=== PATIENT | female | born 1960 | race American Indian/Alaskan Native ===

== ENCOUNTER 2018-04-19 21:16 | Inpatient (IN) | payer OTHER ==
--- NOTE | 2018-04-19 23:21 | XRay Report ---
FINAL REPORT EXAM: XR CHEST ROUTINE 2V HISTORY: Shortness of breath TECHNIQUE: 2 views of the chest. PRIORS: None. FINDINGS: The cardiomediastinal silhouette appears normal. The lungs are clear. The bones and soft tissues are unremarkable. IMPRESSION: No evidence of acute cardiopulmonary disease
[2018-04-19 23:52] LABS: Hematocrit 41.7 % (30.3-42.9); Hemoglobin 14.1 gm/dl (10.1-14.3); Mean Corpuscular HGB Conc 34 % (30-34); Mean Corpuscular Hemoglobin 31 pg (28-32); Mean Corpuscular Volume 92 fl (79-97); Platelet Count 235 K/mm3 (140-440); Red Blood Count 4.55 M/mm3 (3.65-5.03); Red Cell Distribution Width 14.3 % (13.2-15.2)
[2018-04-20 00:07] LABS: BUN/Creatinine Ratio 10; Blood Urea Nitrogen 7 mg/dL (7-17); Calcium 8.6 mg/dL (8.4-10.2); Hemolysis Index 9
[2018-04-20 02:52] LABS: Anisocytosis Few; Band Neutrophils # (Manual) 0.1 K/mm3; Basophils % (Manual) 0 % (0.0-1.8); Total Cells Counted 100
[2018-04-20] MEDS ORDERED: ATROVENT IH ONE (08:18)
[2018-04-20] MEDS ORDERED: SOLU-Medrol IV ONE (08:18)
[2018-04-20] MEDS ORDERED: PROVENTIL IH ONE (08:18)
[2018-04-20] MEDS ORDERED: MAGNESIUM SULFATE 1 GM in NACL 0.9% 50 ML IV ONE (08:18)
--- NOTE | 2018-04-20 08:20 | Emergency Department Report ---
ED Shortness of Breath HPI - General Chief Complaint: Dyspnea/Respdistress Stated Complaint: SOB Time Seen by Provider: 04/20/18 08:14 Source: patient Mode of arrival: Ambulatory Limitations: No Limitations - History of Present Illness Initial Comments: Patient is a 57-year-old black female past medical history of COPD who is not on oxygen at home who is presenting with 1 week of worsening shortness of breath. Patient is tried to take her albuterol rescue inhaler multiple times without improvement. Patient states she has a cough is nonproductive. Patient denies any fevers chills nausea vomiting diarrhea at this time. Patient states short of breath is worse when she walks and when she coughs. - Related Data Previous Rx's Medication Instructions Recorded Last Taken Type ALBUTEROL Inhaler (OR & NICU) 2 puff IH QID PRN #2 inha 10/06/13 03/15/14 16:00 Rx [ProAir HFA Inhaler] Doxycycline [Vibramycin CAP] 100 mg PO BID 7 Days capsule 10/06/13 10/24/13 09: 00 Rx Prednisone [predniSONE 10 mg 10 mg PO QDAY #5 tab.ds.pk 10/06/13 10/24/13 09:00 Rx (6-Day Pack, 21 Tabs)] Albuterol Sulfate [Ventolin HFA] 2 puff IH Q4H PRN #1 hfa.aer.ad 07/02/15 Unknown Rx Azithromycin [Zithromax Z-JERRY] 250 mg PO DAILY #6 tablet 07/02/15 Unknown Rx Lisinopril [Zestril TAB] 20 mg PO QDAY #30 tablet 07/02/15 Unknown Rx Prednisone [predniSONE 10 mg 10 mg PO DAILY #1 dosepack 07/02/15 Unknown Rx (6-Day Pack, 21 Tabs)] guaiFENesin/CODEINE [Robitussin AC] 5 ml PO Q6H PRN #100 oral.liqd 07/02/15 Unknown Rx Albuterol Sulfate [Albuterol 0.63% 0.63 mg IH TID PRN #1 box 07/05/15 Unknown Rx NEBS] Azithromycin [Zithromax] 250 mg PO QDAY #6 tablet 07/05/15 Unknown Rx Budesonide [Pulmicort] 0.5 mg IH Q12HR #1 box 07/05/15 Unknown Rx Ipratropium [Atrovent NEB] 0.5 mg IH Q8HRT PRN #1 box 07/05/15 Unknown Rx Nebulizer and Compressor 1 each MC TID PRN #1 box 07/05/15 Unknown Rx [Devilbiss Pulmoneb Lt Comp-Neb] Allergies Allergy/AdvReac Type Severity Reaction Status Date / Time latex AdvReac Unknown Verified 07/01/13 23:57 ED Review of Systems ROS: Stated complaint: SOB Other details as noted in HPI Comment: All other systems reviewed and negative ED Past Medical Hx - Past Medical History Hx Hypertension: Yes Hx Congestive Heart Failure: Yes Hx COPD: Yes - Surgical History Additional Surgical History: 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 - Social History Smoking Status: Current Every Day Smoker Substance Use Type: None - Medications Home Medications: Home Medications Medication Instructions Recorded Confirmed Last Taken Type ALBUTEROL Inhaler (OR & NICU) 2 puff IH QID PRN #2 inha 10/06/13 03/16/14 16:00 Rx [ProAir HFA Inhaler] Doxycycline [Vibramycin CAP] 100 mg PO BID 7 Days capsule 10/06/13 03/16/14 09:00 Rx Prednisone [predniSONE 10 mg 10 mg PO QDAY #5 tab.ds.pk 10/06/13 03/16/14 09:00 Rx (6-Day Pack, 21 Tabs)] Albuterol Sulfate [Ventolin HFA] 2 puff IH Q4H PRN #1 hfa.aer.ad 07/02/15 Unknown Rx Azithromycin [Zithromax Z-JERRY] 250 mg PO DAILY #6 tablet 07/02/15 Unknown Rx Lisinopril [Zestril TAB] 20 mg PO QDAY #30 tablet 07/02/15 Unknown Rx Prednisone [predniSONE 10 mg 10 mg PO DAILY #1 dosepack 07/02/15 Unknown Rx (6-Day Pack, 21 Tabs)] guaiFENesin/CODEINE [Robitussin AC] 5 ml PO Q6H PRN #100 oral.liqd 07/02/15 Unknown Rx Albuterol Sulfate [Albuterol 0.63% 0.63 mg IH TID PRN #1 box 07/05/15 Unknown Rx NEBS] Azithromycin [Zithromax] 250 mg PO QDAY #6 tablet 07/05/15 Unknown Rx Budesonide [Pulmicort] 0.5 mg IH Q12HR #1 box 07/05/15 Unknown Rx Ipratropium [Atrovent NEB] 0.5 mg IH Q8HRT PRN #1 box 07/05/15 Unknown Rx Nebulizer and Compressor 1 each MC TID PRN #1 box 07/05/15 Unknown Rx [Devilbiss Pulmoneb Lt Comp-Neb] ED Physical Exam - General Limitations: No Limitations General appearance: alert, in no apparent distress - Head Head exam: Present: atraumatic, normocephalic - Eye Eye exam: Present: normal appearance - ENT ENT exam: Present: mucous membranes moist - Neck Neck exam: Present: normal inspection - Respiratory Respiratory exam: Present: normal lung sounds bilaterally, wheezes, decreased breath sounds. Absent: respiratory distress, rales, rhonchi, stridor, accessory muscle use - Cardiovascular Cardiovascular Exam: Present: regular rate, normal rhythm. Absent: systolic murmur, diastolic murmur, rubs, gallop - GI/Abdominal GI/Abdominal exam: Present: soft, normal bowel sounds. Absent: distended, tenderness, guarding - Extremities Exam Extremities exam: Present: normal inspection - Back Exam Back exam: Present: normal inspection - Neurological Exam Neurological exam: Present: alert, oriented X3 - Psychiatric Psychiatric exam: Present: normal affect, normal mood - Skin Skin exam: Present: warm, dry, intact, normal color. Absent: rash ED Course Vital Signs 04/19/18 04/20/18 04/20/18 22:41 05:35 08:12 Temperature 98.5 F 98.7 F Pulse Rate 86 88 Pulse Rate [ Anterior Bilateral Throughout] Respiratory 18 16 20 Rate Respiratory Rate [Anterior Bilateral Throughout] Blood Pressure 168/96 152/56 O2 Sat by Pulse 96 96 87 Oximetry 04/20/18 04/20/18 04/20/18 08:15 08:31 08:45 Temperature Pulse Rate 69 79 Pulse Rate [ Anterior Bilateral Throughout] Respiratory 18 17 Rate Respiratory Rate [Anterior Bilateral Throughout] Blood Pressure 125/45 146/75 146/75 O2 Sat by Pulse 93 97 95 Oximetry 04/20/18 04/20/18 04/20/18 09:01 09:15 09:20 Temperature Pulse Rate Pulse Rate [ 71 Anterior Bilateral Throughout] Respiratory Rate Respiratory 20 Rate [Anterior Bilateral Throughout] Blood Pressure 146/75 125/69 O2 Sat by Pulse 97 96 Oximetry 04/20/18 04/20/18 04/20/18 09:31 09:45 10:01 Temperature Pulse Rate Pulse Rate [ Anterior Bilateral Throughout] Respiratory Rate Respiratory Rate [Anterior Bilateral Throughout] Blood Pressure 118/71 118/71 137/73 O2 Sat by Pulse 100 99 99 Oximetry 04/20/18 04/20/18 04/20/18 10:15 10:31 10:45 Temperature Pulse Rate Pulse Rate [ Anterior Bilateral Throughout] Respiratory Rate Respiratory Rate [Anterior Bilateral Throughout] Blood Pressure 137/73 137/73 137/73 O2 Sat by Pulse 98 98 90 Oximetry - Reevaluation(s) Reevaluation #1: 04/20/18 08:19 The patient had a prolonged wait time but did receive an albuterol treatment last night. Patient is continued to wheeze and has decreased breath sounds. Patient will have additional hour-long neb treatment ordered. ED Medical Decision Making - Lab Data Result diagrams: 04/19/18 23:14 04/19/18 23:14 - Radiology Data Chest x-ray shows no acute process - Medical Decision Making Patient is a 57-year-old Ethiopian female who has COPD is here for exacerbation. After her hour-long treatment patient still is having issues with her O2 sat. O2 sat on room air is not high 80s. Patient was placed on 2 L of oxygen however her oxygenation did not is currently improved and patient was placed on BiPAP. Patient will be admitted to the hospitalist service under Dr. Deshpande at this time. Critical Care Time: Yes (30) Critical care attestation.: If time is entered above; I have spent that time in minutes in the direct care of this critically ill patient, excluding procedure time. ED Disposition Clinical Impression: COPD exacerbation, Hypoxia Disposition: OP ADMIT IP TO THIS HOSP Is pt being admited?: Yes Does the pt Need Aspirin: No Condition: Poor Instructions: Chronic Bronchitis (ED) Referrals: PRIMARY CARE, [Primary Care Provider] - 3-5 Days
[2018-04-20] MEDS ORDERED: ZOFRAN IV ONE (10:57)
[2018-04-20] MEDS ORDERED: MORPHINE IV ONE (10:57)
--- NOTE | 2018-04-20 11:06 | History and Physical Report ---
History of Present Illness Chief complaint: shes having a hard time breathing History of present illness: 57 YO Female with COPD, Obesity, Obesity Hypoventilation Syndrome, Nicotine Dependence presents to ED for evaluation. Pt is lethargic at time of my exam, and is unable to provide history. Pt son is at bedside and provides history. Pt son states that she has experienced shortness of breath over the past week with worsening symptoms over the past 2 days, as well as worsening productive cough with clear sputum. Pt symptoms worsened with increased use of inhaler. Pt has also experienced dypsnea on exertion and at rest as well as worsening confusion. Pt transported to [facility] by family. Pt seen and evaluated in ED and found to have COPD Exacerbation, Acute Hypercapnic Respiratory Failure, and Encephalopathy. Pt treated with NIPPV in ED. Pt symptoms improved with therapy. Pt admitted to IM. Past History Past Medical History: COPD, hypertension Past Surgical History: Other (tumor excision) Social history: single, smoking Family history: hypertension Medications and Allergies Allergies Allergy/AdvReac Type Severity Reaction Status Date / Time latex AdvReac Unknown Verified 07/01/13 23:57 Home Medications Medication Instructions Recorded Confirmed Last Taken Type ALBUTEROL Inhaler (OR & NICU) 2 puff IH QID PRN #2 inha 10/06/13 04/20/18 16:00 Rx [ProAir HFA Inhaler] Review of Systems ROS unobtainable: due to mental status Exam - Constitutional Vitals: Temp Pulse Resp BP Pulse Ox 98.7 F 71 20 137/73 90 04/20/18 05:35 04/20/18 09:20 04/20/18 09:20 04/20/18 10:45 04/20/18 10:45 General appearance: Present: mild distress - EENT Eyes: Present: miosis ENT: hearing intact, clear oral mucosa - Neck Neck: Present: supple, normal ROM - Respiratory Respiratory effort: labored Respiratory: bilateral: diminished, rhonchi - Cardiovascular Heart Sounds: Present: S1 & S2. Absent: rub, click - Extremities Extremities: pulses symmetrical, No edema Peripheral Pulses: within normal limits - Abdominal General gastrointestinal: Present: soft, non-tender, non-distended, normal bowel sounds Female genitourinary: Present: normal - Integumentary Integumentary: Present: clear, warm, dry - Musculoskeletal Musculoskeletal: generalized weakness - Psychiatric Psychiatric: no intact judgment & insight, no memory intact Results - Labs CBC & Chem 7: 04/19/18 23:14 04/19/18 23:14 Labs: Abnormal lab results 04/19/18 04/19/18 Range/Units 23:14 23:14 Seg Neuts % (Manual) 79.0 H (40.0-70.0) % Carbon Dioxide 34 H (22-30) mmol/L Glucose 115 H (65-100) mg/dL Assessment and Plan - Patient Problems (1) Acute respiratory failure with hypercapnia Current Visit: Yes Status: Acute Plan to address problem: Supplemental oxygen, chest x ray, d dimer, CTA chest, nebulizer therapy, NIPPV, ABG (2) Encephalopathy Current Visit: Yes Status: Acute Plan to address problem: neuro checks, supplemental oxygen, aspiration precautions (3) COPD exacerbation Current Visit: Yes Status: Acute Plan to address problem: Supplemental oxygen, nebulizer therapy, chest x ray, NIPPV, (4) DVT prophylaxis Current Visit: No Status: Acute Plan to address problem: SCD to BLE while in bed
[2018-04-20] MEDS ORDERED: PULMICORT IH ONE (11:07)
[2018-04-20] MEDS ORDERED: DUONEB *Not for PRN Use IH ONE (11:23)
[2018-04-20] MEDS: DUONEB *Not for PRN Use IH ONE (11:27)
--- NOTE | 2018-04-20 17:54 | Nuclear Medicine Report ---
FINAL REPORT EXAM: NM LUNG SCAN PERF/VENT HISTORY: dypsnea TECHNIQUE: Lung ventilation with 13.56 mCi of xenon-133 gas Lung perfusion with 5.2 mCi of IV technetium 99m MAA Standard multiple planar ventilation and perfusion lung images PRIORS: Two-view chest 04/19/2018 FINDINGS: Ventilation and perfusion uptake is diffusely homogeneous bilaterally without focal matched or mismatched defect. Specifically, there is no mismatched perfusion defect to suggest pulmonary embolism. There is no central air trapping to suggest emphysema. IMPRESSION: Lung ventilation and perfusion scan negative for pulmonary embolism
[2018-04-20] MEDS ORDERED: CATAPRES ONE (20:42)
--- NOTE | 2018-04-21 13:20 | Progress Note ---
Assessment and Plan Assessment and plan: --Acute hypoxic hypercapnic respiratory failure; Secondary to acute exacerbation of COPD, oxygen nebulizers IV steroids and IV antibiotics inhalation steroids and supportive care --Acute exacerbation of COPD; Bronchodilators, IV Solu-Medrol, IV Levaquin, cough medicine Supportive care --Acute bronchitis/pneumonitis; Continue supportive care, antibiotics and cough medicine --Morbid obesity; BMI 38.6 Counseling, weight reduction when medically stable --DVT prophylaxis; Lovenox Closely monitor the patient, possible discharge in 1-2 days if stable Plan of care is reviewed with the patient, family member at the bedside and her nurse History Interval history: Patient seen and examined medical records reviewed Patient complains of shortness of breath and wheeze Alert awake oriented 3, mild distress Denies chest pain, mild nausea Vital signs reviewed Hospitalist Physical - Constitutional Vitals: Temp Pulse Resp BP Pulse Ox 98.4 F 68 16 118/68 97 04/21/18 12:00 04/21/18 05:00 04/21/18 05:00 04/21/18 05:00 04/21/18 09:45 General appearance: Present: mild distress, obese - EENT Eyes: Present: PERRL, EOM intact - Neck Neck: Present: supple, normal ROM - Respiratory Respiratory effort: normal Respiratory: bilateral: diminished, rhonchi, wheezing, negative: rales - Cardiovascular Rhythm: regular Heart Sounds: Present: S1 & S2 - Extremities Extremities: no ischemia, No edema - Abdominal General gastrointestinal: soft, non-tender, non-distended, normal bowel sounds - Integumentary Integumentary: Present: clear, warm - Psychiatric Psychiatric: appropriate mood/affect, cooperative - Neurologic Neurologic: CNII-XII intact, moves all extremities Results - Labs CBC & Chem 7: 04/19/18 23:14 04/19/18 23:14 Labs: Laboratory Last Values WBC 7.4 K/mm3 (4.5-11.0) 04/19/18 23:14 RBC 4.55 M/mm3 (3.65-5.03) 04/19/18 23:14 Hgb 14.1 gm/dl (10.1-14.3) 04/19/18 23:14 Hct 41.7 % (30.3-42.9) 04/19/18 23:14 MCV 92 fl (79-97) 04/19/18 23:14 MCH 31 pg (28-32) 04/19/18 23:14 MCHC 34 % (30-34) 04/19/18 23:14 RDW 14.3 % (13.2-15.2) 04/19/18 23:14 Plt Count 235 K/mm3 (140-440) 04/19/18 23:14 Add Manual Diff Complete 04/19/18 23:14 Total Counted 100 04/19/18 23:14 Seg Neuts % (Manual) 79.0 % (40.0-70.0) H 04/19/18 23:14 Band Neutrophils % 1.0 % 04/19/18 23:14 Lymphocytes % (Manual) 16.0 % (13.4-35.0) 04/19/18 23:14 Reactive Lymphs % (Man) 0 % 04/19/18 23:14 Monocytes % (Manual) 3.0 % (0.0-7.3) 04/19/18 23:14 Eosinophils % (Manual) 1.0 % (0.0-4.3) 04/19/18 23:14 Basophils % (Manual) 0 % (0.0-1.8) 04/19/18 23:14 Metamyelocytes % 0 % 04/19/18 23:14 Myelocytes % 0 % 04/19/18 23:14 Promyelocytes % 0 % 04/19/18 23:14 Blast Cells % 0 % 04/19/18 23:14 Nucleated RBC % Not Reportable 04/19/18 23:14 Seg Neutrophils # Man 5.8 K/mm3 (1.8-7.7) 04/19/18 23:14 Band Neutrophils # 0.1 K/mm3 04/19/18 23:14 Lymphocytes # (Manual) 1.2 K/mm3 (1.2-5.4) 04/19/18 23:14 Abs React Lymphs (Man) 0.0 K/mm3 04/19/18 23:14 Monocytes # (Manual) 0.2 K/mm3 (0.0-0.8) 04/19/18 23:14 Eosinophils # (Manual) 0.1 K/mm3 (0.0-0.4) 04/19/18 23:14 Basophils # (Manual) 0.0 K/mm3 (0.0-0.1) 04/19/18 23:14 Metamyelocytes # 0.0 K/mm3 04/19/18 23:14 Myelocytes # 0.0 K/mm3 04/19/18 23:14 Promyelocytes # 0.0 K/mm3 04/19/18 23:14 Blast Cells # 0.0 K/mm3 04/19/18 23:14 WBC Morphology Not Reportable 04/19/18 23:14 Hypersegmented Neuts Not Reportable 04/19/18 23:14 Hyposegmented Neuts Not Reportable 04/19/18 23:14 Hypogranular Neuts Not Reportable 04/19/18 23:14 Smudge Cells Not Reportable 04/19/18 23:14 Toxic Granulation Not Reportable 04/19/18 23:14 Toxic Vacuolation Not Reportable 04/19/18 23:14 Dohle Bodies Not Reportable 04/19/18 23:14 Pelger-Huet Anomaly Not Reportable 04/19/18 23:14 Daly Rods Not Reportable 04/19/18 23:14 Platelet Estimate Appears normal 04/19/18 23:14 Clumped Platelets Not Reportable 04/19/18 23:14 Plt Clumps, EDTA Not Reportable 04/19/18 23:14 Large Platelets Not Reportable 04/19/18 23:14 Giant Platelets Not Reportable 04/19/18 23:14 Platelet Satelliting Not Reportable 04/19/18 23:14 Plt Morphology Comment Not Reportable 04/19/18 23:14 RBC Morphology Not Reportable 04/19/18 23:14 Dimorphic RBCs Not Reportable 04/19/18 23:14 Polychromasia Not Reportable 04/19/18 23:14 Hypochromasia Not Reportable 04/19/18 23:14 Poikilocytosis Not Reportable 04/19/18 23:14 Anisocytosis Few 04/19/18 23:14 Microcytosis Not Reportable 04/19/18 23:14 Macrocytosis Not Reportable 04/19/18 23:14 Spherocytes Not Reportable 04/19/18 23:14 Pappenheimer Bodies Not Reportable 04/19/18 23:14 Sickle Cells Not Reportable 04/19/18 23:14 Target Cells Not Reportable 04/19/18 23:14 Tear Drop Cells Not Reportable 04/19/18 23:14 Ovalocytes Not Reportable 04/19/18 23:14 Helmet Cells Not Reportable 04/19/18 23:14 Kc-Oblong Bodies Not Reportable 04/19/18 23:14 [place] Rings Not Reportable 04/19/18 23:14 [place] Cells Not Reportable 04/19/18 23:14 Bite Cells Not Reportable 04/19/18 23:14 Crenated Cell Not Reportable 04/19/18 23:14 Elliptocytes Not Reportable 04/19/18 23:14 Acanthocytes (Spur) Not Reportable 04/19/18 23:14 Rouleaux Not Reportable 04/19/18 23:14 Hemoglobin C Crystals Not Reportable 04/19/18 23:14 Schistocytes Not Reportable 04/19/18 23:14 Malaria parasites Not Reportable 04/19/18 23:14 Jj Bodies Not Reportable 04/19/18 23:14 Hem Pathologist Commnt No 04/19/18 23:14 D-Dimer 362.13 ng/mlDDU (0-234) H 04/20/18 12:10 POC ABG pH 7.290 (7.35-7.45) L 04/21/18 06:20 POC ABG pCO2 75.6 (35-45) H 04/21/18 06:20 POC ABG pO2 97 (80-105) 04/21/18 06:20 POC ABG HCO3 36.4 04/21/18 06:20 POC ABG Total CO2 39 04/21/18 06:20 POC ABG O2 Sat 96 04/21/18 06:20 POC ABG Base Excess 10 04/21/18 06:20 FiO2 45 % 04/21/18 06:20 Sodium 144 mmol/L (137-145) 04/19/18 23:14 Potassium 4.1 mmol/L (3.6-5.0) 04/19/18 23:14 Chloride 101.2 mmol/L (98-107) 04/19/18 23:14 Carbon Dioxide 34 mmol/L (22-30) H 04/19/18 23:14 Anion Gap 13 mmol/L 04/19/18 23:14 BUN 7 mg/dL (7-17) 04/19/18 23:14 Creatinine 0.7 mg/dL (0.7-1.2) 04/19/18 23:14 Estimated GFR > 60 ml/min 04/19/18 23:14 BUN/Creatinine Ratio 10 % 04/19/18 23:14 Glucose 115 mg/dL (65-100) H 04/19/18 23:14 Calcium 8.6 mg/dL (8.4-10.2) 04/19/18 23:14 NT-Pro-B Natriuret Pep 68.51 pg/mL (0-900) 04/20/18 12:10
[2018-04-21] MEDS ORDERED: COLACE PO PRN (15:58)
[2018-04-21] MEDS ORDERED: PERCOCET 5/325 PO PRN (15:58)
[2018-04-21] MEDS ORDERED: ZOFRAN IV PRN (16:00)
[2018-04-21] MEDS: DUONEB *Not for PRN Use IH SCH (20:45)
[2018-04-21] MEDS: SOLU-Medrol IV SCH (22:40)
[2018-04-22] MEDS: DUONEB *Not for PRN Use IH SCH ×4 (01:20→21:59)
[2018-04-22 06:07] LABS: Basophils % (Auto) 0.1 % (0.0-1.8); Hematocrit 41.3 % (30.3-42.9); Hemoglobin 13.3 gm/dl (10.1-14.3); Lymphocytes # (Auto) 0.8 K/mm3 (1.2-5.4); Lymphocytes % (Auto) 8.2 % (13.4-35.0); Mean Corpuscular HGB Conc 32 % (30-34); Mean Corpuscular Hemoglobin 30 pg (28-32); Mean Corpuscular Volume 94 fl (79-97); Monocytes # (Auto) 0.2 K/mm3 (0.0-0.8); Monocytes % (Auto) 1.7 % (0.0-7.3); Platelet Count 208 K/mm3 (140-440); Red Cell Distribution Width 14.8 % (13.2-15.2)
[2018-04-22 06:28] LABS: BUN/Creatinine Ratio 17; Blood Urea Nitrogen 12 mg/dL (7-17); Calcium 8.5 mg/dL (8.4-10.2); Hemolysis Index 79
[2018-04-22] MEDS: SOLU-Medrol IV SCH ×2 (06:31→14:37)
[2018-04-22] MEDS: DUONEB *Not for PRN Use IH ONE (08:07)
[2018-04-22] MEDS: LEVAQUIN 750MG/150ML 750 MG/150 ML BAG IV SCH (10:08)
--- NOTE | 2018-04-22 15:56 | Progress Note ---
Assessment and Plan Assessment and plan: --Acute exacerbation of COPD; Bronchodilators, tapering doses of IV Solu-Medrol, IV Levaquin, cough medicine Supportive care --Acute hypoxic hypercapnic respiratory failure; Secondary to acute exacerbation of COPD, oxygen nebulizers IV steroids and IV antibiotics inhalation steroids and supportive care --Acute bronchitis/pneumonitis; Continue supportive care, antibiotics and cough medicine --Morbid obesity; BMI 38.6 Counseling, weight reduction when medically stable --DVT prophylaxis; Lovenox Increase ambulation as tolerated Patient is stable to be transferred out of IMCU to medical floor Possible discharge tomorrow if stable History Interval history: Patient seen and examined medical records reviewed Patient feels slightly better, still complains of some wheezing and shortness of breath Alert awake oriented 3 Vital signs reviewed Hospitalist Physical - Constitutional Vitals: Temp Pulse Resp BP Pulse Ox 98.2 F 69 16 114/57 99 04/22/18 12:00 04/22/18 11:10 04/22/18 11:10 04/22/18 10:51 04/22/18 11:10 General appearance: Present: no acute distress, obese - EENT Eyes: Present: PERRL, EOM intact - Neck Neck: Present: supple, normal ROM - Respiratory Respiratory effort: normal Respiratory: bilateral: diminished, wheezing, negative: rales, rhonchi - Cardiovascular Rhythm: regular Heart Sounds: Present: S1 & S2 - Extremities Extremities: no ischemia, No edema - Abdominal General gastrointestinal: soft, non-tender, non-distended, normal bowel sounds - Integumentary Integumentary: Present: clear, warm - Psychiatric Psychiatric: appropriate mood/affect, cooperative - Neurologic Neurologic: CNII-XII intact, moves all extremities Results - Labs CBC & Chem 7: 04/22/18 05:17 04/22/18 05:17 Labs: Laboratory Last Values WBC 10.3 K/mm3 (4.5-11.0) 04/22/18 05:17 RBC 4.40 M/mm3 (3.65-5.03) 04/22/18 05:17 Hgb 13.3 gm/dl (10.1-14.3) 04/22/18 05:17 Hct 41.3 % (30.3-42.9) 04/22/18 05:17 MCV 94 fl (79-97) 04/22/18 05:17 MCH 30 pg (28-32) 04/22/18 05:17 MCHC 32 % (30-34) 04/22/18 05:17 RDW 14.8 % (13.2-15.2) 04/22/18 05:17 Plt Count 208 K/mm3 (140-440) 04/22/18 05:17 Lymph % (Auto) 8.2 % (13.4-35.0) L 04/22/18 05:17 [place] % (Auto) 1.7 % (0.0-7.3) 04/22/18 05:17 Eos % (Auto) 0.0 % (0.0-4.3) 04/22/18 05:17 Baso % (Auto) 0.1 % (0.0-1.8) 04/22/18 05:17 Lymph # 0.8 K/mm3 (1.2-5.4) L 04/22/18 05:17 [place] # 0.2 K/mm3 (0.0-0.8) 04/22/18 05:17 Eos # 0.0 K/mm3 (0.0-0.4) 04/22/18 05:17 Baso # 0.0 K/mm3 (0.0-0.1) 04/22/18 05:17 Add Manual Diff Complete 04/19/18 23:14 Total Counted 100 04/19/18 23:14 Seg Neutrophils % 90.0 % (40.0-70.0) H 04/22/18 05:17 Seg Neuts % (Manual) 79.0 % (40.0-70.0) H 04/19/18 23:14 Band Neutrophils % 1.0 % 04/19/18 23:14 Lymphocytes % (Manual) 16.0 % (13.4-35.0) 04/19/18 23:14 Reactive Lymphs % (Man) 0 % 04/19/18 23:14 Monocytes % (Manual) 3.0 % (0.0-7.3) 04/19/18 23:14 Eosinophils % (Manual) 1.0 % (0.0-4.3) 04/19/18 23:14 Basophils % (Manual) 0 % (0.0-1.8) 04/19/18 23:14 Metamyelocytes % 0 % 04/19/18 23:14 Myelocytes % 0 % 04/19/18 23:14 Promyelocytes % 0 % 04/19/18 23:14 Blast Cells % 0 % 04/19/18 23:14 Nucleated RBC % Not Reportable 04/19/18 23:14 Seg Neutrophils # 9.3 K/mm3 (1.8-7.7) H 04/22/18 05:17 Seg Neutrophils # Man 5.8 K/mm3 (1.8-7.7) 04/19/18 23:14 Band Neutrophils # 0.1 K/mm3 04/19/18 23:14 Lymphocytes # (Manual) 1.2 K/mm3 (1.2-5.4) 04/19/18 23:14 Abs React Lymphs (Man) 0.0 K/mm3 04/19/18 23:14 Monocytes # (Manual) 0.2 K/mm3 (0.0-0.8) 04/19/18 23:14 Eosinophils # (Manual) 0.1 K/mm3 (0.0-0.4) 04/19/18 23:14 Basophils # (Manual) 0.0 K/mm3 (0.0-0.1) 04/19/18 23:14 Metamyelocytes # 0.0 K/mm3 04/19/18 23:14 Myelocytes # 0.0 K/mm3 04/19/18 23:14 Promyelocytes # 0.0 K/mm3 04/19/18 23:14 Blast Cells # 0.0 K/mm3 04/19/18 23:14 WBC Morphology Not Reportable 04/19/18 23:14 Hypersegmented Neuts Not Reportable 04/19/18 23:14 Hyposegmented Neuts Not Reportable 04/19/18 23:14 Hypogranular Neuts Not Reportable 04/19/18 23:14 Smudge Cells Not Reportable 04/19/18 23:14 Toxic Granulation Not Reportable 04/19/18 23:14 Toxic Vacuolation Not Reportable 04/19/18 23:14 Dohle Bodies Not Reportable 04/19/18 23:14 Pelger-Huet Anomaly Not Reportable 04/19/18 23:14 Daly Rods Not Reportable 04/19/18 23:14 Platelet Estimate Appears normal 04/19/18 23:14 Clumped Platelets Not Reportable 04/19/18 23:14 Plt Clumps, EDTA Not Reportable 04/19/18 23:14 Large Platelets Not Reportable 04/19/18 23:14 Giant Platelets Not Reportable 04/19/18 23:14 Platelet Satelliting Not Reportable 04/19/18 23:14 Plt Morphology Comment Not Reportable 04/19/18 23:14 RBC Morphology Not Reportable 04/19/18 23:14 Dimorphic RBCs Not Reportable 04/19/18 23:14 Polychromasia Not Reportable 04/19/18 23:14 Hypochromasia Not Reportable 04/19/18 23:14 Poikilocytosis Not Reportable 04/19/18 23:14 Anisocytosis Few 04/19/18 23:14 Microcytosis Not Reportable 04/19/18 23:14 Macrocytosis Not Reportable 04/19/18 23:14 Spherocytes Not Reportable 04/19/18 23:14 Pappenheimer Bodies Not Reportable 04/19/18 23:14 Sickle Cells Not Reportable 04/19/18 23:14 Target Cells Not Reportable 04/19/18 23:14 Tear Drop Cells Not Reportable 04/19/18 23:14 Ovalocytes Not Reportable 04/19/18 23:14 Helmet Cells Not Reportable 04/19/18 23:14 [place] Bodies Not Reportable 04/19/18 23:14 [place] Rings Not Reportable 04/19/18 23:14 [place] Cells Not Reportable 04/19/18 23:14 Bite Cells Not Reportable 04/19/18 23:14 Crenated Cell Not Reportable 04/19/18 23:14 Elliptocytes Not Reportable 04/19/18 23:14 Acanthocytes (Spur) Not Reportable 04/19/18 23:14 Rouleaux Not Reportable 04/19/18 23:14 Hemoglobin C Crystals Not Reportable 04/19/18 23:14 Schistocytes Not Reportable 04/19/18 23:14 Malaria parasites Not Reportable 04/19/18 23:14 Jj Bodies Not Reportable 04/19/18 23:14 Hem Pathologist Commnt No 04/19/18 23:14 D-Dimer 362.13 ng/mlDDU (0-234) H 04/20/18 12:10 POC ABG pH 7.290 (7.35-7.45) L 04/21/18 06:20 POC ABG pCO2 75.6 (35-45) H 04/21/18 06:20 POC ABG pO2 97 (80-105) 04/21/18 06:20 POC ABG HCO3 36.4 04/21/18 06:20 POC ABG Total CO2 39 04/21/18 06:20 POC ABG O2 Sat 96 04/21/18 06:20 POC ABG Base Excess 10 04/21/18 06:20 FiO2 45 % 04/21/18 06:20 Sodium 139 mmol/L (137-145) 04/22/18 05:17 Potassium 5.2 mmol/L (3.6-5.0) H D 04/22/18 05:17 Chloride 95.7 mmol/L (98-107) L 04/22/18 05:17 Carbon Dioxide 33 mmol/L (22-30) H 04/22/18 05:17 Anion Gap 16 mmol/L 04/22/18 05:17 BUN 12 mg/dL (7-17) 04/22/18 05:17 Creatinine 0.7 mg/dL (0.7-1.2) 04/22/18 05:17 Estimated GFR > 60 ml/min 04/22/18 05:17 BUN/Creatinine Ratio 17 % 04/22/18 05:17 Glucose 230 mg/dL (65-100) H 04/22/18 05:17 Calcium 8.5 mg/dL (8.4-10.2) 04/22/18 05:17 NT-Pro-B Natriuret Pep 68.51 pg/mL (0-900) 04/20/18 12:10
[2018-04-22] MEDS: APRESOLINE PO SCH (23:09)
[2018-04-23] MEDS: SOLU-Medrol IV SCH ×2 (01:40→13:39)
[2018-04-23] MEDS: DUONEB *Not for PRN Use IH SCH ×3 (03:00→16:03)
[2018-04-23] MEDS: APRESOLINE PO SCH ×3 (06:42→23:22)
[2018-04-23] MEDS: LEVAQUIN 750MG/150ML 750 MG/150 ML BAG IV SCH (10:48)
--- NOTE | 2018-04-23 18:26 | Progress Note ---
Assessment and Plan Assessment and plan: --Acute exacerbation of COPD; Bronchodilators, tapering doses of IV Solu-Medrol, IV Levaquin, cough medicine Supportive care --Acute hypoxic hypercapnic respiratory failure; Secondary to acute exacerbation of COPD, oxygen nebulizers IV steroids and IV antibiotics inhalation steroids and supportive care --Acute bronchitis/pneumonitis; Continue supportive care, antibiotics and cough medicine --Morbid obesity; BMI 38.6 Counseling, weight reduction when medically stable --DVT prophylaxis; Lovenox Increase ambulation as tolerated Patient is stable to be transferred out of IMCU to medical floor Possible discharge tomorrow if stable Room air resting oxygen saturation, more than 95%, ambulate 3 roommate oxygen 88 % Continue current management, reevaluate tomorrow for home oxygen Plan of care reviewed with the patient and the family member, her nurse and case management History Interval history: Patient seen and examined medical records reviewed Patient feels slightly better, still complaints of shortness of breath Alert awake oriented 3 Vital signs reviewed Hospitalist Physical - Constitutional Vitals: Temp Pulse Resp BP Pulse Ox 98.5 F 89 18 128/67 89 04/23/18 12:55 04/23/18 14:00 04/23/18 14:00 04/23/18 12:55 04/23/18 12:55 General appearance: Present: no acute distress, obese - EENT Eyes: Present: PERRL, EOM intact - Neck Neck: Present: supple, normal ROM - Respiratory Respiratory effort: normal Respiratory: bilateral: diminished, rhonchi, negative: rales, wheezing - Cardiovascular Rhythm: regular Heart Sounds: Present: S1 & S2 - Extremities Extremities: no ischemia, No edema - Abdominal General gastrointestinal: soft, non-tender, non-distended, normal bowel sounds - Integumentary Integumentary: Present: clear, warm - Psychiatric Psychiatric: appropriate mood/affect, cooperative - Neurologic Neurologic: CNII-XII intact, moves all extremities Results - Labs CBC & Chem 7: 04/22/18 05:17 04/23/18 07:05 Labs: Laboratory Last Values WBC 10.3 K/mm3 (4.5-11.0) 04/22/18 05:17 RBC 4.40 M/mm3 (3.65-5.03) 04/22/18 05:17 Hgb 13.3 gm/dl (10.1-14.3) 04/22/18 05:17 Hct 41.3 % (30.3-42.9) 04/22/18 05:17 MCV 94 fl (79-97) 04/22/18 05:17 MCH 30 pg (28-32) 04/22/18 05:17 MCHC 32 % (30-34) 04/22/18 05:17 RDW 14.8 % (13.2-15.2) 04/22/18 05:17 Plt Count 208 K/mm3 (140-440) 04/22/18 05:17 Lymph % (Auto) 8.2 % (13.4-35.0) L 04/22/18 05:17 [place] % (Auto) 1.7 % (0.0-7.3) 04/22/18 05:17 Eos % (Auto) 0.0 % (0.0-4.3) 04/22/18 05:17 Baso % (Auto) 0.1 % (0.0-1.8) 04/22/18 05:17 Lymph # 0.8 K/mm3 (1.2-5.4) L 04/22/18 05:17 [place] # 0.2 K/mm3 (0.0-0.8) 04/22/18 05:17 Eos # 0.0 K/mm3 (0.0-0.4) 04/22/18 05:17 Baso # 0.0 K/mm3 (0.0-0.1) 04/22/18 05:17 Add Manual Diff Complete 04/19/18 23:14 Total Counted 100 04/19/18 23:14 Seg Neutrophils % 90.0 % (40.0-70.0) H 04/22/18 05:17 Seg Neuts % (Manual) 79.0 % (40.0-70.0) H 04/19/18 23:14 Band Neutrophils % 1.0 % 04/19/18 23:14 Lymphocytes % (Manual) 16.0 % (13.4-35.0) 04/19/18 23:14 Reactive Lymphs % (Man) 0 % 04/19/18 23:14 Monocytes % (Manual) 3.0 % (0.0-7.3) 04/19/18 23:14 Eosinophils % (Manual) 1.0 % (0.0-4.3) 04/19/18 23:14 Basophils % (Manual) 0 % (0.0-1.8) 04/19/18 23:14 Metamyelocytes % 0 % 04/19/18 23:14 Myelocytes % 0 % 04/19/18 23:14 Promyelocytes % 0 % 04/19/18 23:14 Blast Cells % 0 % 04/19/18 23:14 Nucleated RBC % Not Reportable 04/19/18 23:14 Seg Neutrophils # 9.3 K/mm3 (1.8-7.7) H 04/22/18 05:17 Seg Neutrophils # Man 5.8 K/mm3 (1.8-7.7) 04/19/18 23:14 Band Neutrophils # 0.1 K/mm3 04/19/18 23:14 Lymphocytes # (Manual) 1.2 K/mm3 (1.2-5.4) 04/19/18 23:14 Abs React Lymphs (Man) 0.0 K/mm3 04/19/18 23:14 Monocytes # (Manual) 0.2 K/mm3 (0.0-0.8) 04/19/18 23:14 Eosinophils # (Manual) 0.1 K/mm3 (0.0-0.4) 04/19/18 23:14 Basophils # (Manual) 0.0 K/mm3 (0.0-0.1) 04/19/18 23:14 Metamyelocytes # 0.0 K/mm3 04/19/18 23:14 Myelocytes # 0.0 K/mm3 04/19/18 23:14 Promyelocytes # 0.0 K/mm3 04/19/18 23:14 Blast Cells # 0.0 K/mm3 04/19/18 23:14 WBC Morphology Not Reportable 04/19/18 23:14 Hypersegmented Neuts Not Reportable 04/19/18 23:14 Hyposegmented Neuts Not Reportable 04/19/18 23:14 Hypogranular Neuts Not Reportable 04/19/18 23:14 Smudge Cells Not Reportable 04/19/18 23:14 Toxic Granulation Not Reportable 04/19/18 23:14 Toxic Vacuolation Not Reportable 04/19/18 23:14 Dohle Bodies Not Reportable 04/19/18 23:14 Pelger-Huet Anomaly Not Reportable 04/19/18 23:14 Daly Rods Not Reportable 04/19/18 23:14 Platelet Estimate Appears normal 04/19/18 23:14 Clumped Platelets Not Reportable 04/19/18 23:14 Plt Clumps, EDTA Not Reportable 04/19/18 23:14 Large Platelets Not Reportable 04/19/18 23:14 Giant Platelets Not Reportable 04/19/18 23:14 Platelet Satelliting Not Reportable 04/19/18 23:14 Plt Morphology Comment Not Reportable 04/19/18 23:14 RBC Morphology Not Reportable 04/19/18 23:14 Dimorphic RBCs Not Reportable 04/19/18 23:14 Polychromasia Not Reportable 04/19/18 23:14 Hypochromasia Not Reportable 04/19/18 23:14 Poikilocytosis Not Reportable 04/19/18 23:14 Anisocytosis Few 04/19/18 23:14 Microcytosis Not Reportable 04/19/18 23:14 Macrocytosis Not Reportable 04/19/18 23:14 Spherocytes Not Reportable 04/19/18 23:14 Pappenheimer Bodies Not Reportable 04/19/18 23:14 Sickle Cells Not Reportable 04/19/18 23:14 Target Cells Not Reportable 04/19/18 23:14 Tear Drop Cells Not Reportable 04/19/18 23:14 Ovalocytes Not Reportable 04/19/18 23:14 Helmet Cells Not Reportable 04/19/18 23:14 Kc-[place] Bodies Not Reportable 04/19/18 23:14 [place] Rings Not Reportable 04/19/18 23:14 [place] Cells Not Reportable 04/19/18 23:14 Bite Cells Not Reportable 04/19/18 23:14 Crenated Cell Not Reportable 04/19/18 23:14 Elliptocytes Not Reportable 04/19/18 23:14 Acanthocytes (Spur) Not Reportable 04/19/18 23:14 Rouleaux Not Reportable 04/19/18 23:14 Hemoglobin C Crystals Not Reportable 04/19/18 23:14 Schistocytes Not Reportable 04/19/18 23:14 Malaria parasites Not Reportable 04/19/18 23:14 Jj Bodies Not Reportable 04/19/18 23:14 Hem Pathologist Commnt No 04/19/18 23:14 D-Dimer 362.13 ng/mlDDU (0-234) H 04/20/18 12:10 POC ABG pH 7.290 (7.35-7.45) L 04/21/18 06:20 POC ABG pCO2 75.6 (35-45) H 04/21/18 06:20 POC ABG pO2 97 (80-105) 04/21/18 06:20 POC ABG HCO3 36.4 04/21/18 06:20 POC ABG Total CO2 39 04/21/18 06:20 POC ABG O2 Sat 96 04/21/18 06:20 POC ABG Base Excess 10 04/21/18 06:20 FiO2 45 % 04/21/18 06:20 Sodium 139 mmol/L (137-145) 04/22/18 05:17 Potassium 4.7 mmol/L (3.6-5.0) 04/23/18 07:05 Chloride 95.7 mmol/L (98-107) L 04/22/18 05:17 Carbon Dioxide 33 mmol/L (22-30) H 04/22/18 05:17 Anion Gap 16 mmol/L 04/22/18 05:17 BUN 12 mg/dL (7-17) 04/22/18 05:17 Creatinine 0.7 mg/dL (0.7-1.2) 04/22/18 05:17 Estimated GFR > 60 ml/min 04/22/18 05:17 BUN/Creatinine Ratio 17 % 04/22/18 05:17 Glucose 230 mg/dL (65-100) H 04/22/18 05:17 POC Glucose 113 (70-105) H 04/23/18 16:50 Calcium 8.5 mg/dL (8.4-10.2) 04/22/18 05:17 Magnesium 2.20 mg/dL (1.7-2.3) 04/23/18 07:05 NT-Pro-B Natriuret Pep 68.51 pg/mL (0-900) 04/20/18 12:10
[2018-04-24] MEDS: DUONEB *Not for PRN Use IH SCH ×5 (00:27→13:57)
[2018-04-24] MEDS: SOLU-Medrol IV SCH (02:03)
[2018-04-24] MEDS: APRESOLINE PO SCH ×2 (06:13→14:51)
--- NOTE | 2018-04-24 09:30 | Discharge Summary ---
Providers - Providers Date of Admission: 04/20/18 12:00 Date of discharge: 04/24/18 Attending physician: ANTHONY CHAVEZ Primary care physician: BUILDING SPECIALIST Hospitalization Condition: Poor Disposition: DC-01 TO HOME OR SELFCARE Core Measure Documentation - Palliative Care Palliative Care/ Comfort Measures: Not Applicable - Core Measures Any of the following diagnoses?: none Exam - Constitutional Vitals: Temp Pulse Resp BP Pulse Ox 98.2 F 71 18 105/53 97 04/24/18 05:58 04/24/18 07:52 04/24/18 07:52 04/24/18 06:13 04/24/18 07:52 General appearance: Present: no acute distress, well-nourished - EENT Eyes: Present: PERRL, EOM intact - Neck Neck: Present: supple, normal ROM - Respiratory Respiratory effort: normal Respiratory: bilateral: diminished, negative: rales, rhonchi, wheezing - Cardiovascular Rhythm: regular Heart Sounds: Present: S1 & S2 - Extremities Extremities: no ischemia, No edema - Abdominal General gastrointestinal: Present: soft, non-tender, non-distended, normal bowel sounds - Integumentary Integumentary: Present: clear, warm - Musculoskeletal Musculoskeletal: strength equal bilaterally - Psychiatric Psychiatric: appropriate mood/affect, cooperative - Neurologic Neurologic: CNII-XII intact, moves all extremities Plan Activity: no restrictions Diet: regular Additional Instructions: Resting and ambulatory O2 sats more than 93-94%. No indication for home oxygen. Advised weight reduction as tolerated. Advised 2 days work excuse 04/25/18 and 04/26/18 Follow up with: PRIMARY CARE, [Primary Care Provider] - 3-5 Days Forms: Accompanied Note Prescriptions: ALBUTEROL Inhaler (OR & NICU) [ProAir HFA Inhaler] 2 puff IH QID PRN #2 inha PRN Reason: Shortness Of Breath Azithromycin [Zithromax Z-JERRY] 0 mg PO DAILY #1 tab guaiFENesin DM [Guaifenesin Dm Syrup] 10 ml PO Q6H PRN 10 Days oral.liqd PRN Reason: Cough hydrALAZINE [Apresoline TAB] 25 mg PO Q8HR #90 tablet Prednisone [predniSONE 10 mg (6-Day Pack, 21 Tabs)] 10 mg PO .TAPER #1 tab.ds.pk
[2018-04-24] MEDS ORDERED: LEVAQUIN PO SCH (10:00)
[2018-04-24 12:35] VITALS: BP 130/74
[2018-04-24] MEDS ORDERED: SOLU-Medrol IV SCH (13:15)
== END 2018-04-24 16:00 | disposition home or self-care (01) | DRG 193 ==
LOC: ED 21:16 → IMCU 04-20 12:00 → 3A 04-22 20:42
PROVIDERS: ADMIT Internal Medicine; ATTEND Internal Medicine
PROC: 4A033R1 Measurement of Arterial Saturation, Peripheral, Percutaneous Approach (ICD-10-PCS; principal; 2018-04-20)
PROC: 5A09357 Assistance with Respiratory Ventilation, Less than 24 Consecutive Hours, Continuous Positive Airway Pressure (ICD-10-PCS; 2018-04-20)
PROC: 5A09357 Assistance with Respiratory Ventilation, Less than 24 Consecutive Hours, Continuous Positive Airway Pressure (ICD-10-PCS; 2018-04-21)
PROC: 5A09357 Assistance with Respiratory Ventilation, Less than 24 Consecutive Hours, Continuous Positive Airway Pressure (ICD-10-PCS; 2018-04-22)
PROC: 5A09357 Assistance with Respiratory Ventilation, Less than 24 Consecutive Hours, Continuous Positive Airway Pressure (ICD-10-PCS; 2018-04-23)
PROC: 5A09357 Assistance with Respiratory Ventilation, Less than 24 Consecutive Hours, Continuous Positive Airway Pressure (ICD-10-PCS; 2018-04-24)
DX: J18.9 Pneumonia, unspecified organism (principal); J96.02 Acute respiratory failure with hypercapnia; J96.01 Acute respiratory failure with hypoxia; G93.40 Encephalopathy, unspecified; J44.1 Chronic obstructive pulmonary disease with (acute) exacerbation; E66.2 Morbid (severe) obesity with alveolar hypoventilation; J44.0 Chronic obstructive pulmonary disease with (acute) lower respiratory infection; I50.9 Heart failure, unspecified; I11.0 Hypertensive heart disease with heart failure; J20.9 Acute bronchitis, unspecified; F17.210 Nicotine dependence, cigarettes, uncomplicated; Z68.38 Body mass index [BMI] 38.0-38.9, adult; Z82.49 Family history of ischemic heart disease and other diseases of the circulatory system; Z91.040 Latex allergy status; Z79.51 Long term (current) use of inhaled steroids; Z71.3 Dietary counseling and surveillance
CPT/HCPCS: 36415; 36600; 71046; 78582; 80048; 82803; 82962; 83735; 83880; 84132; 85007; 85025; 85379; 93005; 93010; 94640; 94644; 94660; 94760; A9540; A9558; J1956; J2270; J2405; J2920; J2930; J3475

== ENCOUNTER 2019-05-21 13:25 | Outpatient (CLI) | payer OTHER ==
[2019-05-21] MEDS ORDERED: ALBUTEROL 2.5 MG/3 ML NEBU IH ONE (14:04)
== END 2019-05-21 13:26 | disposition home or self-care (01) ==
LOC: PF 13:25
PROVIDERS: ATTEND Internal Medicine
DX: J44.9 Chronic obstructive pulmonary disease, unspecified (principal); I11.0 Hypertensive heart disease with heart failure; I50.9 Heart failure, unspecified; G47.00 Insomnia, unspecified; M19.90 Unspecified osteoarthritis, unspecified site; G56.00 Carpal tunnel syndrome, unspecified upper limb
CPT/HCPCS: 94060; 94640

== ENCOUNTER 2019-06-12 20:23 | Inpatient (IN) | payer OTHER ==
--- NOTE | 2019-06-12 21:21 | Emergency Department Report ---
Blank Doc - Documentation Documentation: 58-year-old female that presents with cp, SOB and jenna leg swellings. This initial assessment/diagnostic orders/clinical plan/treatment(s) is/are subject to change based on patient's health status, clinical progression and re- assessment by fellow clinical providers in the ED. Further treatment and workup at subsequent clinical providers discretion. Patient/guardians urged not to elope from the ED as their condition may be serious if not clinically assessed and managed. Initial orders include: 1- Patient sent to MAIN ED for further evaluation and treatment 2- labs 3- UA 4- EKG
[2019-06-12 21:55] LABS: Basophils % (Auto) 0.6 % (0.0-1.8); Eosinophils # (Auto) 0.1 K/mm3 (0.0-0.4); Eosinophils % (Auto) 1.8 % (0.0-4.3); Hematocrit 40.9 % (30.3-42.9); Hemoglobin 13.4 gm/dl (10.1-14.3); Lymphocytes # (Auto) 1.6 K/mm3 (1.2-5.4); Lymphocytes % (Auto) 20.2 % (13.4-35.0); Mean Corpuscular HGB Conc 33 % (30-34); Mean Corpuscular Volume 91 fl (79-97); Monocytes # (Auto) 0.6 K/mm3 (0.0-0.8); Monocytes % (Auto) 7.9 % (0.0-7.3); Platelet Count 211 K/mm3 (140-440); Red Cell Distribution Width 14.5 % (13.2-15.2)
[2019-06-12 22:07] LABS: Alanine Aminotransferase 32 units/L (7-56); BUN/Creatinine Ratio 12; Blood Urea Nitrogen 7 mg/dL (7-17); Calcium 8.9 mg/dL (8.4-10.2); Hemolysis Index 5
[2019-06-12 22:08] LABS: INR 0.96 (0.87-1.13)
[2019-06-12 22:09] LABS: Partial Thromboplastin Time 34.3 Sec. (24.2-36.6)
[2019-06-12] MEDS ORDERED: methylPREDNISolone Sod Succinate 125 MG/2 ML INJ IV ONE (22:09)
[2019-06-12] MEDS ORDERED: IPRATROPIUM/ALBUTEROL SULFATE 3 ML AMPUL.NEB IH ONE (22:10)
[2019-06-12] MEDS ORDERED: FUROSEMIDE 40 MG/4 ML INJ IV ONE (22:10)
[2019-06-12] MEDS ORDERED: guaiFENesin/CODEINE 100-10MG ORAL LIQD 5 ML PO ONE (22:10)
--- NOTE | 2019-06-12 22:13 | Emergency Department Report ---
HPI - General Chief Complaint: Dyspnea/Respdistress Time Seen by Provider: 06/12/19 21:20 - HPI HPI: 58-year-old Neisha female presents to the emergency department with complaint of a one-week history of bilateral lower show me swelling, as well as a few days of shortness of breath. The patient is also been dealing with about 1-2 weeks of a productive cough. At first it was greenish sputum but it has now turned clear. The patient says that she "caught a cold." She tried some wkem-scj-hnksxor Robitussin and cough medications without any relief. She has a past medical history of COPD, CHF, sleep apnea, hypertension. She is not oxygen dependent. She does not use her CPAP. She does not have a primary care physician or speech language pathology assistant. She is a tobacco smoker having quit only a few days ago. No recent travel or sick contacts at home. 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 - Social History Smoking Status: Current Every Day Smoker Substance Use Type: None - Medications Home Medications: Home Medications Medication Instructions Recorded Confirmed Last Taken Type ALBUTEROL Inhaler (OR & NICU) 2 puff IH QID PRN #2 inha 04/24/18 Unknown Rx [ProAir HFA Inhaler] Azithromycin [Zithromax Z-JERRY] 0 mg PO DAILY #1 tab 04/24/18 Unknown Rx Prednisone [predniSONE 10 mg 10 mg PO .TAPER #1 tab.ds.pk 04/24/18 Unknown Rx (6-Day Pack, 21 Tabs)] guaiFENesin DM [Guaifenesin Dm 10 ml PO Q6H PRN 10 Days oral.liqd 04/24/18 Unknown Rx Syrup] hydrALAZINE [Apresoline TAB] 25 mg PO Q8HR #90 tablet 04/24/18 Unknown Rx ED Review of Systems ROS: Stated complaint: SOB, SWOLLEN LEGS AND FEET, COPD,CHF Other details as noted in HPI Comment: All other systems reviewed and negative Constitutional: denies: chills, fever Eyes: denies: eye pain, vision change ENT: congestion. denies: throat pain Respiratory: cough, shortness of breath Cardiovascular: edema. denies: chest pain Gastrointestinal: denies: abdominal pain, vomiting Genitourinary: denies: dysuria, discharge Musculoskeletal: denies: back pain, arthralgia Skin: denies: rash, pruritus Neurological: denies: headache, weakness Physical Exam - Physical Exam Vital Signs: Vital Signs 06/12/19 06/12/19 20:30 22:02 Temperature 97.7 F Pulse Rate 87 72 Respiratory 20 17 Rate Blood Pressure 165/87 Blood Pressure 153/88 [Left] O2 Sat by Pulse 90 96 Oximetry Physical Exam: GENERAL: The patient is well-developed well-nourished. HENT: Normocephalic. Atraumatic. Patient has moist mucous membranes. EYES: Extraocular motions are intact. Pupils equal reactive to light bilaterally. NECK: Supple. Trachea is midline. CHEST/LUNGS: Mild expiratory wheezing. There is a productive cough heard with coughing fits during examination. No tachypnea or accessory muscle use. There is no respiratory distress noted. HEART/CARDIOVASCULAR: Regular. There is no tachycardia. There is no murmur. ABDOMEN: Abdomen is soft, nontender. Patient has normal bowel sounds. Obese habitus. SKIN: Moderate bilateral lower extremity edema. NEURO: The patient is awake, alert, and oriented. The patient is cooperative. The patient has no focal neurologic deficits. Normal speech. MUSCULOSKELETAL: There is no tenderness or deformity. There is no limitation range of motion. There is no evidence of acute injury. ED Course Vital Signs 06/12/19 06/12/19 20:30 22:02 Temperature 97.7 F Pulse Rate 87 72 Respiratory 20 17 Rate Blood Pressure 165/87 Blood Pressure 153/88 [Left] O2 Sat by Pulse 90 96 Oximetry - ABG Interpretation Ph: 7.416 PCO2: 49.9 PO2: 56 Bicarbonate: 32 Interpretation: respiratory acidosis, metabolic alkalosis ED Medical Decision Making - Lab Data Result diagrams: 06/12/19 21:27 06/12/19 21:27 - EKG Data -: EKG Interpreted by Me EKG shows normal: sinus rhythm, axis, intervals, QRS complexes, ST-T waves Rate: normal - EKG Data When compared to previous EKG there are: previous EKG unavailable Interpretation: normal EKG - Radiology Data Radiology results: report reviewed, image reviewed interpreted by me: There is hyperinflation of the lungs and flattening of the diaphragms on chest x-ray. No pneumonia, pleural effusions or focal consolidation. CTA CHEST WITH IV CONTRAST INDICATION / CLINICAL INFORMATION: P.E. PROTOCOL SOB, elevated D-dimer Omnipaque 350 / 100ml's was used for this exam. TECHNIQUE: Axial CT images were obtained through the chest after injection of 100 mL IV contrast. 3 plane MIP and/or 3D reconstructions were produced. All CT scans at this location are performed using CT dose reduction for ALARA by means of automated exposure control. COMPARISON: Recent chest radiograph FINDINGS: PUL MONARY ARTERIES: No pulmonary emboli. THORACIC AORTA: No significant abnormality. HEART: No significant abnormality. CORONARY ARTERIES: No significant calcification. PLEURA: No pleural effusion. No pneumothorax. LYMPH NODES: No significant adenopathy. LUNGS: No acute pulmonary or pleural abnormality. However, there is moderate changes consistent with emphysema. ADDITIONAL FINDINGS: None. UPPER ABDOMEN: No acute findings. SKELETAL STRUCTURES: No significant osseous abnormality. Mild spondylitic change noted throughout the thoracic spine. IMPRESSION: 1. No CT evidence for pulmonary embolism. 2. No acute pulmonary or pleural disease. 3. COPD. - Medical Decision Making Patient presents with some swelling of the legs, shortness of breath and a productive cough with coughing fits. She does have moderate nonpitting swelling of the bilateral lower extremities. BNP is only about 300 and therefore not consistent with an acute exacerbation of her CHF. 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 Rest the patient's labs are mostly unremarkable except for slightly low potassium level and a slightly elevated and equivocal d-dimer level. CT angiography did not show any signs of pulmonary embolism, dissection, aneurysm or any other acute process. She was given breathing treatments, steroids, antitussive medication. Patient's oxygen still appears to go down into the mid 80s without any supplemental oxygen, and the patient is not oxygen dependent at home or at access to supplement oxygen at home. An ABG was done that showed hypoxemia without any significant hypercapnia. She'll be admitted to the hospital for further evaluation and treatment was accepted for admission by the hospitalist, Dr Buenrostro. - Differential Diagnosis COPD, Pneumonia, PE, CHF Critical Care Time: No Critical care attestation.: If time is entered above; I have spent that time in minutes in the direct care of this critically ill patient, excluding procedure time. ED Disposition Clinical Impression: COPD exacerbation, Bronchitis, Hypoxia, Tobacco abuse Disposition: DC-09 OP ADMIT IP TO THIS HOSP Is pt being admited?: Yes Condition: Fair Time of Disposition: 01:24
[2019-06-12] MEDS ORDERED: POTASSIUM CHLORIDE ER 20 MEQ TAB PO ONE (22:14)
--- NOTE | 2019-06-12 22:24 | XRay Report ---
CHEST 2 VIEWS INDICATION / CLINICAL INFORMATION: Chest Pain. COMPARISON: Two-view chest 04/19/2018 FINDINGS: SUPPORT DEVICES: None. HEART / MEDIASTINUM: No significant abnormality. LUNGS / PLEURA: No significant pulmonary or pleural abnormality. No pneumothorax. ADDITIONAL FINDINGS: No significant additional findings. IMPRESSION: 1. No acute finding. Signer Name: Pk Bonds MD Signed: 06/12/2019 10:19 PM Workstation Name: [id number]
[2019-06-12 23:15] LABS: Bacteria,Urine 1+ /HPF (Negative); Bilirubin,Urine NEG (Negative); Blood,Urine NEG (Negative); Color,Urine Straw (Yellow); Mucus,Urine FEW /HPF; Protein,Urine <15 mg/dL mg/dL (Negative); Urobilinogen,Urine < 2.0 mg/dL (<2.0)
--- NOTE | 2019-06-12 23:28 | Cat Scan Report ---
CTA CHEST WITH IV CONTRAST INDICATION / CLINICAL INFORMATION: P.E. PROTOCOL SOB, elevated D-dimer Omnipaque 350 / 100ml's was used for this exam. TECHNIQUE: Axial CT images were obtained through the chest after injection of 100 mL IV contrast. 3 plane MIP an d/or 3D reconstructions were produced. All CT scans at this location are performed using CT dose redu ction for [facility] by means of automated exposure control. COMPARISON: Recent chest radiograph FINDINGS: PULMONARY ARTERIES: No pulmonary emboli. THORACIC AORTA: No significant abnormality. HEART: No significant abnormality. CORONARY ARTERIES: No significant calcification. PLEURA: No pleural effusion. No pneumothorax. LYMPH NODES: No significant adenopathy. LUNGS: No acute pulmonary or pleural abnormality. However, there is moderate changes consistent with emphysema. ADDITIONAL FINDINGS: None. UPPER ABDOMEN: No acute findings. SKELETAL STRUCTURES: No significant osseous abnormality. Mild spondylitic change noted throughout the thoracic spine. IMPRESSION: 1. No CT evidence for pulmonary embolism. 2. No acute pulmonary or pleural disease. 3. COPD. Signer Name: Daphney Clayton MD Signed: 06/12/2019 11:24 PM Workstation Name: [id number]
[2019-06-13] MEDS ORDERED: ACETAMINOPHEN 325 MG TAB PO PRN (03:19)
[2019-06-13] MEDS ORDERED: MAGNESIUM HYDROXIDE (MOM) ORAL LIQD UDC PO PRN (03:19)
[2019-06-13] MEDS ORDERED: ONDANSETRON 4 MG/2 ML INJ IV PRN (03:19)
--- NOTE | 2019-06-13 05:11 | History and Physical Report ---
History of Present Illness Date of examination: 06/13/19 Date of admission: 06/13/19 01:42 Chief complaint: Cough and shortness of breath History of present illness: 58-year-old female with known history of COPD, hypertension, CHF and sleep apnea resented to the emergency room today complaining of shortness of breath and cough which has been ongoing for the past few days. Cough is said to have been productive of some greenish sputum. She denies any fever no chills, she denies any chest pain. Upon arrival in the emergency room she was found to be hypoxic with oxygen saturation in the 80s and also found to be wheezing. She was given some steroids and nebulizer treatment with some improvement. She continues to smoke about half a pack of cigarette daily. Past History Past Medical History: COPD, heart failure, hypertension, other (Hypotonia syndrome) Past Surgical History: Other (Left hand surgery) Social history: smoking (Smokes half a pack of cigarette daily) Family history: CAD, diabetes, hypertension Medications and Allergies Allergies Allergy/AdvReac Type Severity Reaction Status Date / Time latex AdvReac Unknown Verified 07/01/13 23:57 Home Medications Medication Instructions Recorded Confirmed Last Taken Type ALBUTEROL Inhaler (OR & NICU) 2 puff IH QID PRN #2 inha 04/24/18 Unknown Rx [ProAir HFA Inhaler] Azithromycin [Zithromax Z-JERRY] 0 mg PO DAILY #1 tab 04/24/18 Unknown Rx Prednisone [predniSONE 10 mg 10 mg PO .TAPER #1 tab.ds.pk 04/24/18 Unknown Rx (6-Day Pack, 21 Tabs)] guaiFENesin DM [Guaifenesin Dm 10 ml PO Q6H PRN 10 Days oral.liqd 04/24/18 Unknown Rx Syrup] hydrALAZINE [Apresoline TAB] 25 mg PO Q8HR #90 tablet 04/24/18 Unknown Rx Active Meds: Active Medications Acetaminophen (Tylenol) 650 mg PO Q4H PRN PRN Reason: Pain MILD(1-3)/Fever >100.5/FISHER Albuterol/Ipratropium (Duoneb *Not For Prn Use*) 1 ampul IH Q6HRT DANIELLE Levofloxacin/Dextrose (Levaquin 750mg/150ml) 750 mg in 150 mls @ 100 mls/hr IV Q24HR ADNIELLE; Protocol Magnesium Hydroxide (Milk Of Magnesia) 30 ml PO Q4H PRN PRN Reason: Constipation Methylprednisolone Sodium Succinate (Solu-Medrol) 40 mg IV Q6HR DANIELLE Ondansetron HCl (Zofran) 4 mg IV Q8H PRN PRN Reason: Nausea And Vomiting Sodium Chloride (Sodium Chloride Flush Syringe 10 Ml) 10 ml IV BID DANIELLE Sodium Chloride (Sodium Chloride Flush Syringe 10 Ml) 10 ml IV PRN PRN PRN Reason: LINE FLUSH Review of Systems Respiratory: cough, shortness of breath Exam - Constitutional Vitals: Temp Pulse Resp BP Pulse Ox 98.4 F 73 16 140/70 93 06/13/19 04:44 06/13/19 04:44 06/13/19 04:44 06/13/19 04:44 06/13/19 04:44 - EENT Eyes: Present: PERRL, EOM intact ENT: hearing intact, clear oral mucosa, dentition normal - Neck Neck: Present: supple, normal ROM - Respiratory Respiratory effort: normal Respiratory: bilateral: wheezing - Cardiovascular Rhythm: regular Heart Sounds: Present: S1 & S2 - Extremities Extremities: no ischemia Extremity abnormal: edema (Trace ankle edema) Peripheral Pulses: within normal limits - Abdominal General gastrointestinal: Present: soft, non-tender, non-distended - Integumentary Integumentary: Present: clear, warm, dry - Musculoskeletal Musculoskeletal: strength equal bilaterally - Psychiatric Psychiatric: appropriate mood/affect, intact judgment & insight - Neurologic Neurologic: CNII-XII intact, moves all extremities Results - Labs CBC & Chem 7: 06/12/19 21:27 06/12/19 21:27 Labs: Abnormal lab results 06/12/19 06/12/19 06/12/19 Range/Units 21:27 21:27 21:27 [place] % (Auto) 7.9 H (0.0-7.3) % D-Dimer 472.88 H (0-234) ng/mlDDU POC ABG pCO2 (35-45) POC ABG pO2 (80-105) Potassium 3.3 L (3.6-5.0) mmol/L Creatinine 0.6 L (0.7-1.2) mg/dL Glucose 116 H (65-100) mg/dL Urine pH (5.0-7.0) 06/12/19 06/12/19 Range/Units 23:00 23:59 [place] % (Auto) (0.0-7.3) % D-Dimer (0-234) ng/mlDDU POC ABG pCO2 49.9 H (35-45) POC ABG pO2 56 L (80-105) Potassium (3.6-5.0) mmol/L Creatinine (0.7-1.2) mg/dL Glucose (65-100) mg/dL Urine pH 8.0 H (5.0-7.0) Assessment and Plan - Patient Problems (1) Bronchitis Current Visit: Yes Status: Acute Plan to address problem: He is placed on empiric IV antibiotics. (2) COPD exacerbation Current Visit: Yes Status: Acute Plan to address problem: She is placed on nebulizing treatments, and IV steroids. (3) Hypoxia Current Visit: Yes Status: Acute Plan to address problem: Probably secondary to the COPD underlying bronchitis. She will be kept on oxygen to keep O2 saturation greater or equal to 92%. (4) DVT prophylaxis Current Visit: No Status: Acute Plan to address problem: She is placed on subcutaneous heparin. (5) Full code status Current Visit: Yes Status: Acute
[2019-06-13] MEDS: methylPREDNISolone Sod Succinate 40 MG/1 ML INJ IV SCH ×4 (07:14→23:41)
[2019-06-13] MEDS: IPRATROPIUM/ALBUTEROL SULFATE 3 ML AMPUL.NEB IH SCH ×3 (07:54→20:23)
[2019-06-13] MEDS ORDERED: FLU VACC QUAD 2019-20 (3 YR UP)/PF 60 MCG/0.5 ML SYRINGE IM ONE (12:00)
--- NOTE | 2019-06-13 17:45 | Consultation ---
History of Present Illness Consult date: 06/13/19 Reason for consult: dyspnea, cough, COPD, obstructive sleep apnea History of present illness: PULMONARY AND CRITICAL CARE CONSULTATION DR. GOSS THANK YOU FOR ASKING US TO PARTICIPATE IN THE CARE OF THIS PATIENT. 58-year-old Neisha female presents to the emergency department with complaint of a one-week history of bilateral lower leg swelling, as well as a few days of shortness of breath. The patient is also been dealing with about 1- 2 weeks of a productive cough. At first it was greenish sputum but it has now turned clear. The patient says that she "caught a cold." She tried some over- the-counter Robitussin and cough medications without any relief. She has a past medical history of COPD, CHF, sleep apnea, hypertension. She is not oxygen dependent. She does not use her CPAP. She does not have a primary care physician or animal bounty hunter. No recent travel or sick contacts at home. Patient has heavy history of smoking 2 packs a day x 30 years. Counselled to stop smoking. Denies alcohol or drug abuse. Worked as security. Allergic to latex. and has 3 children. Patient is on 2 litres O2. Patients O2 saturation 96%. Chest xray reported no acute findings. Angio CT of chest reported NO PE. Has changes of COPD. D dimer 483, elevated Recommend venous doppler studies of legs. ABG FIO2 not known. POC ABG pH 7.416 (7.35-7.45) 06/12/19 23:59 POC ABG pCO2 49.9 (35-45) H 06/12/19 23:59 POC ABG pO2 56 (80-105) L 06/12/19 23:59 POC ABG HCO3 32.0 (22-26 mml/L) 06/12/19 23:59 POC ABG Total CO2 34 (23-27mmol/L) 06/12/19 23:59 POC ABG O2 Sat 89 06/12/19 23:59 Patient may be a candidate for home O2. Recommend to check O2 saturation on room air with exercise. Past History Past Medical History: COPD, heart failure, hypertension, other (Hypotonia s yndrome) Past Surgical History: Other (Left hand surgery) Social history: smoking (Smokes half a pack of cigarette daily) Family history: CAD, diabetes, hypertension Medications and Allergies Allergies Allergy/AdvReac Type Severity Reaction Status Date / Time latex AdvReac Unknown Verified 07/01/13 23:57 Home Medications Medication Instructions Recorded Confirmed Last Taken Type ALBUTEROL Inhaler (OR & NICU) 2 puff IH QID PRN #2 inha 04/24/18 Unknown Rx [ProAir HFA Inhaler] Azithromycin [Zithromax Z-JERRY] 0 mg PO DAILY #1 tab 04/24/18 Unknown Rx Prednisone [predniSONE 10 mg 10 mg PO .TAPER #1 tab.ds.pk 04/24/18 Unknown Rx (6-Day Pack, 21 Tabs)] guaiFENesin DM [Guaifenesin Dm 10 ml PO Q6H PRN 10 Days oral.liqd 04/24/18 Unknown Rx Syrup] hydrALAZINE [Apresoline TAB] 25 mg PO Q8HR #90 tablet 04/24/18 Unknown Rx Active Meds: Active Medications Acetaminophen (Tylenol) 650 mg PO Q4H PRN PRN Reason: Pain MILD(1-3)/Fever >100.5/FISHER Albuterol/Ipratropium (Duoneb *Not For Prn Use*) 1 ampul IH Q6HRT [facility] Last Admin: 06/13/19 14:13 Dose: 1 ampul Documented by: Levofloxacin/Dextrose (Levaquin 750mg/150ml) 750 mg in 150 mls @ 100 mls/hr IV Q24HR [facility]; Protocol Last Admin: 06/13/19 14:55 Dose: 100 mls/hr Documented by: Magnesium Hydroxide (Milk Of Magnesia) 30 ml PO Q4H PRN PRN Reason: Constipation Methylprednisolone Sodium Succinate (Solu-Medrol) 40 mg IV Q6HR [facility] Last Admin: 06/13/19 14:56 Dose: 40 mg Documented by: Ondansetron HCl (Zofran) 4 mg IV Q8H PRN PRN Reason: Nausea And Vomiting Sodium Chloride (Sodium Chloride Flush Syringe 10 Ml) 10 ml IV BID [facility] Last Admin: 06/13/19 14:57 Dose: 10 ml Documented by: Sodium Chloride (Sodium Chloride Flush Syringe 10 Ml) 10 ml IV PRN PRN PRN Reason: LINE FLUSH Review of Systems All systems: negative Physical Examination Vital signs: Vital Signs Temp Pulse Resp BP Pulse Ox 97.7 F 87 20 165/87 90 11/14/19 20:30 06/12/19 20:30 06/12/19 20:30 06/12/19 20:30 06/12/19 20:30 General appearance: no acute distress, alert Eyes: non-icteric ENT: oropharynx moist Neck: supple, no JVD Effort: mildly labored Ascultation: Bilateral: diminished breath sounds, other (Prolonged expiratory phase.) Cardiovascular: regular rate and rhythm Gastrointestinal: normoactive bowel sounds, soft, non-tender Integumentary: normal Extremities: no cyanosis, edema Musculoskeletal: no deformities Gait: poor gait normal mental status, non-focal exam, pupils equal and round, CN II-XII normal mood appropriate Results - Laboratory Findings CBC and BMP: 06/12/19 21:27 06/12/19 21:27 ABG POC ABG pH 7.416 (7.35-7.45) 06/12/19 23:59 POC ABG pCO2 49.9 (35-45) H 06/12/19 23:59 POC ABG pO2 56 (80-105) L 06/12/19 23:59 POC ABG HCO3 32.0 (22-26 mml/L) 06/12/19 23:59 POC ABG Total CO2 34 (23-27mmol/L) 06/12/19 23:59 POC ABG O2 Sat 89 06/12/19 23:59 PT/INR, D-dimer PT 12.7 Sec. (12.2-14.9) 06/12/19 21:27 INR 0.96 (0.87-1.13) 06/12/19 21:27 D-Dimer 472.88 ng/mlDDU (0-234) H 06/12/19 21:27 Abnormal lab findings: Abnormal Labs 06/12/19 06/12/19 06/12/19 21:27 21:27 21:27 [place] % (Auto) 7.9 H D-Dimer 472.88 H POC ABG pCO2 POC ABG pO2 Potassium 3.3 L Creatinine 0.6 L Glucose 116 H Urine pH 06/12/19 06/12/19 23:00 23:59 [place] % (Auto) D-Dimer POC ABG pCO2 49.9 H POC ABG pO2 56 L Potassium Creatinine Glucose Urine pH 8.0 H - Diagnostic Findings Chest x-ray: report reviewed (REPORTED NO ACUTE FINDINGS.), image reviewed CT scan - chest: report reviewed (NO PULMONARY EMBOLI. CHANGES OF COPD REPORTED.), image reviewed Assessment and Plan 8-year-old Neisha female presents to the emergency department with complaint of a one-week history of bilateral lower leg swelling, as well as a few days of shortness of breath. The patient is also been dealing with about 1- 2 weeks of a productive cough. At first it was greenish sputum but it has now turned clear. The patient says that she "caught a cold." She tried some [id number] Robitussin and cough medications without any relief. She has a past medical history of COPD, CHF, sleep apnea, hypertension. She is not oxygen dependent. She does not use her CPAP. She does not have a primary care physician or animal bounty hunter. No recent travel or sick contacts at home. Patient has heavy history of smoking 2 packs a day x 30 years. Counselled to stop smoking. Denies alcohol or drug abuse. Worked as security. Allergic to latex. and has 3 children. Patient is on 2 litres O2. Patients O2 saturation 96%. Chest xray reported no acute findings. Angio CT of chest reported NO PE. Has changes of COPD. D dimer 483, elevated Recommend venous doppler studies of legs. ABG FIO2 not known. POC ABG pH 7.416 (7.35-7.45) 06/12/19 23:59 POC ABG pCO2 49.9 (35-45) H 06/12/19 23:59 POC ABG pO2 56 (80-105) L 06/12/19 23:59 POC ABG HCO3 32.0 (22-26 mml/L) 06/12/19 23:59 POC ABG Total CO2 34 (23-27mmol/L) 06/12/19 23:59 POC ABG O2 Sat 89 06/12/19 23:59 Patient may be a candidate for home O2. Recommend to check O2 saturation on room air with exercise. - Patient Problems (1) COPD exacerbation Current Visit: Yes Status: Acute Plan to address problem: O2 2 litres via nasal canula. Albuterol/atrovent aerosol treatments q 6 hours. Continue I/V solumedrol. Recommend DVT and GI prophylaxis. Continue Levaquin. PFTs as out patient. (2) Acute respiratory failure with hypercapnia Current Visit: No Status: Acute Plan to address problem: O2 2 litres via nasal canula. Albuterol/atrovent aerosol treatments q 6 hours. Continue I/V solumedrol. Recommend DVT and GI prophylaxis. Continue Levaquin. (3) Acute bronchitis Current Visit: Yes Status: Acute Plan to address problem: Patient is on Levaquin. (4) Tobacco abuse Current Visit: Yes Status: Chronic Plan to address problem: Counselled to stop smoking. (5) Morbid obesity with BMI of 40.0-44.9, adult Current Visit: Yes Status: Acute Plan to address problem: Recommend to loose weight. Exercise and diet. (6) Obstructive sleep apnea Current Visit: Yes Status: Acute Plan to address problem: Place her on BIPAP 16/8, rate 16, FIO2 39%.
[2019-06-14] MEDS: IPRATROPIUM/ALBUTEROL SULFATE 3 ML AMPUL.NEB IH SCH ×4 (01:46→21:59)
[2019-06-14] MEDS: guaiFENesin 100 MG/5 ML ORAL LIQD PO PRN ×3 (02:29→23:50)
[2019-06-14] MEDS: methylPREDNISolone Sod Succinate 40 MG/1 ML INJ IV SCH ×4 (05:30→23:50)
[2019-06-14 05:38] LABS: Hematocrit 39.1 % (30.3-42.9); Hemoglobin 12.8 gm/dl (10.1-14.3); Mean Corpuscular HGB Conc 33 % (30-34); Mean Corpuscular Volume 92 fl (79-97); Platelet Count 212 K/mm3 (140-440); Red Blood Count 4.27 M/mm3 (3.65-5.03); Red Cell Distribution Width 14.6 % (13.2-15.2)
[2019-06-14 05:45] LABS: INR 1.04 (0.87-1.13)
[2019-06-14 06:15] LABS: BUN/Creatinine Ratio 15; Blood Urea Nitrogen 9 mg/dL (7-17); Calcium 8.4 mg/dL (8.4-10.2); Hemolysis Index 24
[2019-06-14 07:26] LABS: Basophils % (Manual) 0 % (0.0-1.8); Eosinophils % (Manual) 0 % (0.0-4.3); Total Cells Counted 100
[2019-06-14 07:28] LABS: Anisocytosis 1+; Macrocytosis Rare
[2019-06-14 07:29] LABS: Platelet Estimate Consistent w Auto
[2019-06-14] MEDS: ENOXAPARIN 40 MG/0.4 ML INJ SUB-Q SCH (10:47)
[2019-06-14] MEDS: FAMOTIDINE 20 MG TAB PO SCH (10:48)
--- NOTE | 2019-06-14 11:52 | Progress Note ---
Assessment and Plan Acute hypoxic-hypercapnic respiratory failure on oxygen at 2L/min -AE-COPD -Tobacco use disorder/Nicotine dependence -Morbid obesity BMI 40.5 -Continue with supplemental oxygen to keep O2 sats 88-90% -Bronchodilators- JALIL/JEROMY, ICS -Steroids with glycemic control, target blood glucose 180mg/dL -VTE prophylaxis -Stress ulcer prophylaxis -Airway clearance -Smoking cessation counselling done at the bedside -Weight loss and lifestyle modifications -Monitor leukocytosis, trend Subjective Date of service: 06/14/19 Interval history: Patient is seen today for: acute hypoxic-hypercapnic respiratory failure; AE- COPD; Tobacco use disorder, nicotine dependence Seen and examined at bedside; 24hour events reviewed; nursing and respiratory care staff consulted; no adverse overnight events reported to me; Vitals, labs, medications, chart are reviewed. Imaging reviewed. She remains short of breath, with a dry cough, no nausea or vomiting, no diarrhea. Daughter visiting Objective Vital Signs - 12hr 06/14/19 06/14/19 06/14/19 00:22 01:49 02:00 Temperature Pulse Rate Pulse Rate [ 96 H Bilateral] Respiratory 22 Rate Respiratory 18 Rate [Bilateral Leg] Respiratory 18 Rate [Bilateral ] Blood Pressure Blood Pressure [Left] O2 Sat by Pulse 95 Oximetry 06/14/19 06/14/19 06/14/19 04:00 05:38 05:54 Temperature 98.1 F 98.1 F Pulse Rate 66 64 Pulse Rate [ Bilateral] Respiratory 20 20 Rate Respiratory Rate [Bilateral Leg] Respiratory Rate [Bilateral ] Blood Pressure 114/64 Blood Pressure 114/64 [Left] O2 Sat by Pulse 100 Oximetry Constitutional: alert, other (mild respiratory distress on supplemental oxygen) Eyes: non-icteric ENT: oropharynx moist Neck: supple, no JVD Effort: mildly labored Ascultation: Bilateral: diminished breath sounds, other (Prolonged expiratory phase.) Cardiovascular: regular rate and rhythm, other (S1,S2, no murmurs, gallops or rubs) Gastrointestinal: normoactive bowel sounds, soft, non-tender Integumentary: normal Extremities: no cyanosis, edema Neurologic: normal mental status, non-focal exam, pupils equal and round, CN II- XII normal Psychiatric: mood appropriate, affect normal CBC and BMP: 06/14/19 04:54 06/14/19 04:54 ABG, PT/INR, D-dimer: ABG POC ABG pH 7.416 (7.35-7.45) 06/12/19 23:59 POC ABG pCO2 49.9 (35-45) H 06/12/19 23:59 POC ABG pO2 56 (80-105) L 06/12/19 23:59 POC ABG HCO3 32.0 (22-26 mml/L) 06/12/19 23:59 POC ABG Total CO2 34 (23-27mmol/L) 06/12/19 23:59 POC ABG O2 Sat 89 06/12/19 23:59 PT/INR, D-dimer PT 13.5 Sec. (12.2-14.9) 06/14/19 04:54 INR 1.04 (0.87-1.13) 06/14/19 04:54 D-Dimer 472.88 ng/mlDDU (0-234) H 06/12/19 21:27 Abnormal lab findings: Abnormal Labs 06/12/19 06/12/19 06/12/19 21:27 21:27 21:27 WBC [place] % (Auto) 7.9 H Seg Neuts % (Manual) Lymphocytes % (Manual) Seg Neutrophils # Man D-Dimer 472.88 H POC ABG pCO2 POC ABG pO2 Potassium 3.3 L Creatinine 0.6 L Glucose 116 H Urine pH 06/12/19 06/12/19 06/14/19 23:00 23:59 04:54 WBC 15.1 H [place] % (Auto) Seg Neuts % (Manual) 89.0 H Lymphocytes % (Manual) 9.0 L Seg Neutrophils # Man 13.4 H D-Dimer POC ABG pCO2 49.9 H POC ABG pO2 56 L Potassium Creatinine Glucose Urine pH 8.0 H 06/14/19 04:54 WBC [place] % (Auto) Seg Neuts % (Manual) Lymphocytes % (Manual) Seg Neutrophils # Man D-Dimer POC ABG pCO2 POC ABG pO2 Potassium Creatinine 0.6 L Glucose 164 H Urine pH Chest x-ray: image reviewed Allied health notes reviewed: RT
[2019-06-14] MEDS ORDERED: IPRATROPIUM/ALBUTEROL SULFATE 3 ML AMPUL.NEB IH ONE (14:00)
--- NOTE | 2019-06-14 14:44 | Progress Note ---
Assessment and Plan Assessment and plan: 58-year-old female with known history of COPD, hypertension, CHF and sleep apnea resented to the emergency room today complaining of shortness of breath and productive cough x 2 -3 days She continues to smoke about half a pack of cigarette daily. she had no insurance and was using her sisters oxygen and inhalers at home, recently approved for SS disability and medicare/medicaid Past History Past Medical History: COPD, heart failure, hypertension, other (Hypotonia syndrome) plan -cont steroids, nebs, oxygen, rescue bipap as needed, smoking cessation counseling provided, nicotine patches prn cont cpap qhs LE edema improving with lasix, obtain echo, LE dopplers neg for dvt CM consult for home oxygen Dx Acute hypoxic and hypercapnic resp failure COPD exacerbation ANANDA, had cpap at home tobacco abuse/dependence LE edema, fluid overload dvt ppx: lovenox History Interval history: Review of systems Constitutional: No fevers, no malaise, no joint pains CVS: No chest pain, orthopnea and pedal edema have improved GI: No abdominal pain, no diarrhea, no vomiting, no constipation Respiratory: Continues to complain of shortness of breath and wheezing Hospitalist Physical - Physical exam Narrative exam: General.: Appears well, no distress, nontoxic HEENT: Moist mucous membranes, extraocular muscles intact, no lymphadenopathy Neck: supple Cardiac: S1-S2 heard Lungs: Decreased air entry, bibasilar rales, wheezing Abdomen: soft , nontender, nondistended, bowel sounds positive Extremities: 2+ bipedal edema Skin: no rash or lesions Neurologic: no gross focal deficits Psych: calm, and cooperative - Constitutional Vitals: Temp Pulse Resp BP Pulse Ox 98.1 F 64 20 114/64 100 06/14/19 05:54 06/14/19 05:54 06/14/19 05:54 06/14/19 05:54 06/14/19 05:54 Results - Labs CBC & Chem 7: 06/14/19 04:54 06/14/19 04:54 Labs: Laboratory Last Values WBC 15.1 K/mm3 (4.5-11.0) H 06/14/19 04:54 RBC 4.27 M/mm3 (3.65-5.03) 06/14/19 04:54 Hgb 12.8 gm/dl (10.1-14.3) 06/14/19 04:54 Hct 39.1 % (30.3-42.9) 06/14/19 04:54 MCV 92 fl (79-97) 06/14/19 04:54 MCH 30 pg (28-32) 06/14/19 04:54 MCHC 33 % (30-34) 06/14/19 04:54 RDW 14.6 % (13.2-15.2) 06/14/19 04:54 Plt Count 212 K/mm3 (140-440) 06/14/19 04:54 Lymph % (Auto) 20.2 % (13.4-35.0) 06/12/19 21:27 [place] % (Auto) 7.9 % (0.0-7.3) H 06/12/19 21:27 Eos % (Auto) 1.8 % (0.0-4.3) 06/12/19 21:27 Baso % (Auto) 0.6 % (0.0-1.8) 06/12/19 21:27 Lymph # 1.6 K/mm3 (1.2-5.4) 06/12/19 21:27 [place] # 0.6 K/mm3 (0.0-0.8) 06/12/19 21:27 Eos # 0.1 K/mm3 (0.0-0.4) 06/12/19 21:27 Baso # 0.0 K/mm3 (0.0-0.1) 06/12/19 21:27 Add Manual Diff Complete 06/14/19 04:54 Total Counted 100 06/14/19 04:54 Seg Neutrophils % Branch Service Specialist 06/14/19 04:54 Seg Neuts % (Manual) 89.0 % (40.0-70.0) H 06/14/19 04:54 Band Neutrophils % 0 % 06/14/19 04:54 Lymphocytes % (Manual) 9.0 % (13.4-35.0) L 06/14/19 04:54 Reactive Lymphs % (Man) 0 % 06/14/19 04:54 Monocytes % (Manual) 2.0 % (0.0-7.3) 06/14/19 04:54 Eosinophils % (Manual) 0 % (0.0-4.3) 06/14/19 04:54 Basophils % (Manual) 0 % (0.0-1.8) 06/14/19 04:54 Metamyelocytes % 0 % 06/14/19 04:54 Myelocytes % 0 % 06/14/19 04:54 Promyelocytes % 0 % 06/14/19 04:54 Blast Cells % 0 % 06/14/19 04:54 Nucleated RBC % Not Reportable 06/14/19 04:54 Seg Neutrophils # 5.4 K/mm3 (1.8-7.7) 06/12/19 21:27 Seg Neutrophils # Man 13.4 K/mm3 (1.8-7.7) H 06/14/19 04:54 Band Neutrophils # 0.0 K/mm3 06/14/19 04:54 Lymphocytes # (Manual) 1.4 K/mm3 (1.2-5.4) 06/14/19 04:54 Abs React Lymphs (Man) 0.0 K/mm3 06/14/19 04:54 Monocytes # (Manual) 0.3 K/mm3 (0.0-0.8) 06/14/19 04:54 Eosinophils # (Manual) 0.0 K/mm3 (0.0-0.4) 06/14/19 04:54 Basophils # (Manual) 0.0 K/mm3 (0.0-0.1) 06/14/19 04:54 Metamyelocytes # 0.0 K/mm3 06/14/19 04:54 Myelocytes # 0.0 K/mm3 06/14/19 04:54 Promyelocytes # 0.0 K/mm3 06/14/19 04:54 Blast Cells # 0.0 K/mm3 06/14/19 04:54 WBC Morphology Not Reportable 06/14/19 04:54 Hypersegmented Neuts Not Reportable 06/14/19 04:54 Hyposegmented Neuts Not Reportable 06/14/19 04:54 Hypogranular Neuts Not Reportable 06/14/19 04:54 Smudge Cells Not Reportable 06/14/19 04:54 Toxic Granulation Not Reportable 06/14/19 04:54 Toxic Vacuolation Not Reportable 06/14/19 04:54 Dohle Bodies Not Reportable 06/14/19 04:54 Pelger-Huet Anomaly Not Reportable 06/14/19 04:54 Daly Rods Not Reportable 06/14/19 04:54 Platelet Estimate Consistent w auto 06/14/19 04:54 Clumped Platelets Not Reportable 06/14/19 04:54 Plt Clumps, EDTA Not Reportable 06/14/19 04:54 Large Platelets Not Reportable 06/14/19 04:54 Giant Platelets Not Reportable 06/14/19 04:54 Platelet Satelliting Not Reportable 06/14/19 04:54 Plt Morphology Comment Not Reportable 06/14/19 04:54 RBC Morphology Not Reportable 06/14/19 04:54 Dimorphic RBCs Not Reportable 06/14/19 04:54 Polychromasia Not Reportable 06/14/19 04:54 Hypochromasia Not Reportable 06/14/19 04:54 Poikilocytosis Not Reportable 06/14/19 04:54 Anisocytosis 1+ 06/14/19 04:54 Microcytosis Not Reportable 06/14/19 04:54 Macrocytosis Rare 06/14/19 04:54 Spherocytes Not Reportable 06/14/19 04:54 Pappenheimer Bodies Not Reportable 06/14/19 04:54 Sickle Cells Not Reportable 06/14/19 04:54 Target Cells Not Reportable 06/14/19 04:54 Tear Drop Cells Not Reportable 06/14/19 04:54 Ovalocytes Not Reportable 06/14/19 04:54 Helmet Cells Not Reportable 06/14/19 04:54 Kc-[place] Bodies Not Reportable 06/14/19 04:54 [place] Rings Not Reportable 06/14/19 04:54 [place] Cells Not Reportable 06/14/19 04:54 Bite Cells Not Reportable 06/14/19 04:54 Crenated Cell Not Reportable 06/14/19 04:54 Elliptocytes Not Reportable 06/14/19 04:54 Acanthocytes (Spur) Not Reportable 06/14/19 04:54 Rouleaux Not Reportable 06/14/19 04:54 Hemoglobin C Crystals Not Reportable 06/14/19 04:54 Schistocytes Not Reportable 06/14/19 04:54 Malaria parasites Not Reportable 06/14/19 04:54 Jj Bodies Not Reportable 06/14/19 04:54 Hem Pathologist Commnt No 06/14/19 04:54 PT 13.5 Sec. (12.2-14.9) 06/14/19 04:54 INR 1.04 (0.87-1.13) 06/14/19 04:54 APTT 34.3 Sec. (24.2-36.6) 06/12/19 21:27 D-Dimer 472.88 ng/mlDDU (0-234) H 06/12/19 21:27 POC ABG pH 7.416 (7.35-7.45) 06/12/19 23:59 POC ABG pCO2 49.9 (35-45) H 06/12/19 23:59 POC ABG pO2 56 (80-105) L 06/12/19 23:59 POC ABG HCO3 32.0 (22-26 mml/L) 06/12/19 23:59 POC ABG Total CO2 34 (23-27mmol/L) 06/12/19 23:59 POC ABG O2 Sat 89 06/12/19 23:59 POC ABG Base Excess 8 ((-2) - (+3)mmol/L) 06/12/19 23:59 FiO2 21 % 06/12/19 23:59 Sodium 144 mmol/L (137-145) 06/14/19 04:54 Potassium 3.9 mmol/L (3.6-5.0) 06/14/19 04:54 Chloride 99.8 mmol/L (98-107) 06/14/19 04:54 Carbon Dioxide 29 mmol/L (22-30) 06/14/19 04:54 Anion Gap 19 mmol/L 06/14/19 04:54 BUN 9 mg/dL (7-17) 06/14/19 04:54 Creatinine 0.6 mg/dL (0.7-1.2) L 06/14/19 04:54 Estimated GFR > 60 ml/min 06/14/19 04:54 BUN/Creatinine Ratio 15 % 06/14/19 04:54 Glucose 164 mg/dL (65-100) H 06/14/19 04:54 Calcium 8.4 mg/dL (8.4-10.2) 06/14/19 04:54 Total Bilirubin 0.50 mg/dL (0.1-1.2) 06/12/19 21:27 AST 23 units/L (5-40) 06/12/19 21: ALT 32 units/L (7-56) 06/12/19 21: Alkaline Phosphatase 50 units/L (35-129) 06/12/19 21: Troponin T < 0.010 ng/mL (0.00-0.029) 06/13/19 00:09 NT-Pro-B Natriuret Pep 332.1 pg/mL (0-900) 06/12/19 21: Total Protein 7.5 g/dL (6.3-8.2) 06/12/19: Albumin 4.0 g/dL (3.9-5) 06/12/19: Albumin/Globulin Ratio 1.1 % 06/12/19 21: Urine Color Straw (Yellow) 06/12/19 23:00 Urine Turbidity Clear (Clear) 06/12/19 23:00 Urine pH 8.0 (5.0-7.0) H 06/12/19 23:00 Ur Specific [place] 1.009 (1.003-1.030) 06/12/19 23:00 Urine Protein <15 mg/dl mg/dL (Negative) 06/12/19 23:00 Urine Glucose (UA) Neg mg/dL (Negative) 06/12/19 23:00 Urine Ketones Neg mg/dL (Negative) 06/12/19 23:00 Urine Blood Neg (Negative) 06/12/19 23:00 Urine Nitrite Neg (Negative) 06/12/19 23:00 Urine Bilirubin Neg (Negative) 06/12/19 23:00 Urine Urobilinogen < 2.0 mg/dL (<2.0) 06/12/19 23:00 Ur Leukocyte Esterase Neg (Negative) 06/12/19 23:00 Urine WBC (Auto) 2.0 /HPF (0.0-6.0) 06/12/19 23:00 Urine RBC (Auto) 1.0 /HPF (0.0-6.0) 06/12/19 23:00 U Epithel Cells (Auto) 4.0 /HPF (0-13.0) 06/12/19 23:00 Urine Bacteria (Auto) 1+ /HPF (Negative) 06/12/19 23:00 Urine Mucus Few /HPF 06/12/19 23:00 Active Medications - Current Medications Current Medications: Generic Name Dose Route Start Last Admin Trade Name Freq PRN Reason Stop Dose Admin Acetaminophen 650 mg 06/13/19 03:19 Tylenol PO Q4H PRN Pain MILD(1-3)/Fever >100.5/FISHER Albuterol/Ipratropium 1 ampul 06/13/19 08:00 06/14/19 09:14 Duoneb *Not For Prn Use* IH Not Given Q6HRT [facility] Enoxaparin Sodium 40 mg 06/14/19 10:00 06/14/19 10:47 Enoxaparin SUB-Q 40 mg QDAY DANIELLE Administration Famotidine 20 mg 06/14/19 10:00 06/14/19 10:48 Pepcid PO 20 mg QDAY DANIELLE Administration Guaifenesin 200 mg 06/14/19 01:55 06/14/19 09:02 Robitussin PO 200 mg Q6H PRN Administration Cough Levofloxacin/Dextrose 750 mg in 150 mls @ 100 mls/hr 06/13/19 10:00 06/14/19 10:48 Levaquin 750mg/150ml IV 100 mls/hr Q24HR DANIELLE Administration Protocol Magnesium Hydroxide 30 ml 06/13/19 03:19 Milk Of Magnesia PO Q4H PRN Constipation Methylprednisolone Sodium Succinate 40 mg 06/13/19 06:00 06/14/19 14:24 Solu-Medrol IV 40 mg Q6HR DANIELLE Administration Ondansetron HCl 4 mg 06/13/19 03:19 Zofran IV Q8H PRN Nausea And Vomiting Sodium Chloride 10 ml 06/13/19 10:00 06/14/19 10:48 Sodium Chloride Flush Syringe 10 Ml IV 10 ml BID DANIELLE Administration Sodium Chloride 10 ml 06/13/19 03:19 06/14/19 05:31 Sodium Chloride Flush Syringe 10 Ml IV 10 ml PRN PRN Administration LINE FLUSH
--- NOTE | 2019-06-14 16:00 | Vascular Lab Report ---
DUPLEX DOPPLER BILATERAL LOWER EXTREMITY VEINS INDICATION: Bilateral lower extremity swelling. FINDINGS: There is no thrombus within the deep veins of either lower extremity from the common femoral to the c alexy veins. There is normal compression and augmentation on spectral analysis. IMPRESSION: No sonographic evidence for DVT in either lower extremity. Signer Name: Antoine Adrian MD Signed: 06/14/2019 3:55 PM Workstation Name: [id number]
[2019-06-14] MEDS: FUROSEMIDE 20 MG/2 ML INJ IV SCH (18:32)
[2019-06-14] MEDS: NICOTINE 7 MG/24 HR PATCH TD SCH (18:33)
[2019-06-14] MEDS: BENZONATATE 100 MG CAP PO PRN (21:14)
[2019-06-15] MEDS: IPRATROPIUM/ALBUTEROL SULFATE 3 ML AMPUL.NEB IH SCH ×4 (02:19→19:34)
[2019-06-15] MEDS: FUROSEMIDE 20 MG/2 ML INJ IV SCH ×2 (06:06→18:32)
[2019-06-15] MEDS: methylPREDNISolone Sod Succinate 40 MG/1 ML INJ IV SCH ×4 (06:06→23:40)
[2019-06-15] MEDS: BENZONATATE 100 MG CAP PO PRN ×2 (06:33→23:40)
--- NOTE | 2019-06-15 07:44 | Progress Note ---
Assessment and Plan Assessment and plan: 58-year-old female with known history of COPD, hypertension, CHF and sleep apnea resented to the emergency room today complaining of shortness of breath and productive cough x 2 -3 days She continues to smoke about half a pack of cigarette daily. she had no insurance and was using her sisters oxygen and inhalers at home, recently approved for SS disability and medicare/medicaid Past History Past Medical History: COPD, heart failure, hypertension, other (Hypotonia syndrome) plan -cont steroids, nebs, oxygen, rescue bipap as needed, pulm input appreciated smoking cessation counseling provided, nicotine patches prn cont cpap qhs LE edema improving with lasix, obtain echo, LE dopplers neg for dvt CM consult for home oxygen Tobacco abuse/dependence Smoking cessation counseling performed for 10 minutes, nicotine patches when necessary Dx Acute hypoxic and hypercapnic resp failure COPD exacerbation ANANDA, has cpap at home tobacco abuse/dependence LE edema, fluid overload dvt ppx: lovenox History Interval history: Review of systems Constitutional: No fevers, no malaise, no joint pains CVS: No chest pain, orthopnea and pedal edema have improved GI: No abdominal pain, no diarrhea, no vomiting, no constipation Respiratory: Continues to complain of shortness of breath and wheezing Hospitalist Physical - Physical exam Narrative exam: General.: Appears well, no distress, nontoxic HEENT: Moist mucous membranes, extraocular muscles intact, no lymphadenopathy Neck: supple Cardiac: S1-S2 heard Lungs: Decreased air entry, bibasilar rales, wheezing Abdomen: soft , nontender, nondistended, bowel sounds positive Extremities: 1+ bipedal edema Skin: no rash or lesions Neurologic: no gross focal deficits Psych: calm, and cooperative - Constitutional Vitals: Temp Pulse Resp BP Pulse Ox 98.6 F 76 20 107/69 96 06/15/19 05:36 06/15/19 05:36 06/15/19 05:36 06/15/19 05:36 06/15/19 07:28 Results - Labs CBC & Chem 7: 06/14/19 04:54 06/14/19 04:54 Labs: Laboratory Last Values WBC 15.1 K/mm3 (4.5-11.0) H 06/14/19 04:54 RBC 4.27 M/mm3 (3.65-5.03) 06/14/19 04:54 Hgb 12.8 gm/dl (10.1-14.3) 06/14/19 04:54 Hct 39.1 % (30.3-42.9) 06/14/19 04:54 MCV 92 fl (79-97) 06/14/19 04:54 MCH 30 pg (28-32) 06/14/19 04:54 MCHC 33 % (30-34) 06/14/19 04:54 RDW 14.6 % (13.2-15.2) 06/14/19 04:54 Plt Count 212 K/mm3 (140-440) 06/14/19 04:54 Lymph % (Auto) 20.2 % (13.4-35.0) 06/12/19 21:27 [place] % (Auto) 7.9 % (0.0-7.3) H 06/12/19 21:27 Eos % (Auto) 1.8 % (0.0-4.3) 06/12/19 21:27 Baso % (Auto) 0.6 % (0.0-1.8) 06/12/19 21:27 Lymph # 1.6 K/mm3 (1.2-5.4) 06/12/19 21:27 [place] # 0.6 K/mm3 (0.0-0.8) 06/12/19 21:27 Eos # 0.1 K/mm3 (0.0-0.4) 06/12/19 21:27 Baso # 0.0 K/mm3 (0.0-0.1) 06/12/19 21:27 Add Manual Diff Complete 06/14/19 04:54 Total Counted 100 06/14/19 04:54 Seg Neutrophils % Core Driller Helper 06/14/19 04:54 Seg Neuts % (Manual) 89.0 % (40.0-70.0) H 06/14/19 04:54 Band Neutrophils % 0 % 06/14/19 04:54 Lymphocytes % (Manual) 9.0 % (13.4-35.0) L 06/14/19 04:54 Reactive Lymphs % (Man) 0 % 06/14/19 04:54 Monocytes % (Manual) 2.0 % (0.0-7.3) 06/14/19 04:54 Eosinophils % (Manual) 0 % (0.0-4.3) 06/14/19 04:54 Basophils % (Manual) 0 % (0.0-1.8) 06/14/19 04:54 Metamyelocytes % 0 % 06/14/19 04:54 Myelocytes % 0 % 06/14/19 04:54 Promyelocytes % 0 % 06/14/19 04:54 Blast Cells % 0 % 06/14/19 04:54 Nucleated RBC % Not Reportable 06/14/19 04:54 Seg Neutrophils # 5.4 K/mm3 (1.8-7.7) 06/12/19 21:27 Seg Neutrophils # Man 13.4 K/mm3 (1.8-7.7) H 06/14/19 04:54 Band Neutrophils # 0.0 K/mm3 06/14/19 04:54 Lymphocytes # (Manual) 1.4 K/mm3 (1.2-5.4) 06/14/19 04:54 Abs React Lymphs (Man) 0.0 K/mm3 06/14/19 04:54 Monocytes # (Manual) 0.3 K/mm3 (0.0-0.8) 06/14/19 04:54 Eosinophils # (Manual) 0.0 K/mm3 (0.0-0.4) 06/14/19 04:54 Basophils # (Manual) 0.0 K/mm3 (0.0-0.1) 06/14/19 04:54 Metamyelocytes # 0.0 K/mm3 06/14/19 04:54 Myelocytes # 0.0 K/mm3 06/14/19 04:54 Promyelocytes # 0.0 K/mm3 06/14/19 04:54 Blast Cells # 0.0 K/mm3 06/14/19 04:54 WBC Morphology Not Reportable 06/14/19 04:54 Hypersegmented Neuts Not Reportable 06/14/19 04:54 Hyposegmented Neuts Not Reportable 06/14/19 04:54 Hypogranular Neuts Not Reportable 06/14/19 04:54 Smudge Cells Not Reportable 06/14/19 04:54 Toxic Granulation Not Reportable 06/14/19 04:54 Toxic Vacuolation Not Reportable 06/14/19 04:54 Dohle Bodies Not Reportable 06/14/19 04:54 Pelger-Huet Anomaly Not Reportable 06/14/19 04:54 Daly Rods Not Reportable 06/14/19 04:54 Platelet Estimate Consistent w auto 06/14/19 04:54 Clumped Platelets Not Reportable 06/14/19 04:54 Plt Clumps, EDTA Not Reportable 06/14/19 04:54 Large Platelets Not Reportable 06/14/19 04:54 Giant Platelets Not Reportable 06/14/19 04:54 Platelet Satelliting Not Reportable 06/14/19 04:54 Plt Morphology Comment Not Reportable 06/14/19 04:54 RBC Morphology Not Reportable 06/14/19 04:54 Dimorphic RBCs Not Reportable 06/14/19 04:54 Polychromasia Not Reportable 06/14/19 04:54 Hypochromasia Not Reportable 06/14/19 04:54 Poikilocytosis Not Reportable 06/14/19 04:54 Anisocytosis 1+ 06/14/19 04:54 Microcytosis Not Reportable 06/14/19 04:54 Macrocytosis Rare 06/14/19 04:54 Spherocytes Not Reportable 06/14/19 04:54 Pappenheimer Bodies Not Reportable 06/14/19 04:54 Sickle Cells Not Reportable 06/14/19 04:54 Target Cells Not Reportable 06/14/19 04:54 Tear Drop Cells Not Reportable 06/14/19 04:54 Ovalocytes Not Reportable 06/14/19 04:54 Helmet Cells Not Reportable 06/14/19 04:54 Kc-[place] Bodies Not Reportable 06/14/19 04:54 [place] Rings Not Reportable 06/14/19 04:54 [place] Cells Not Reportable 06/14/19 04:54 Bite Cells Not Reportable 06/14/19 04:54 Crenated Cell Not Reportable 06/14/19 04:54 Elliptocytes Not Reportable 06/14/19 04:54 Acanthocytes (Spur) Not Reportable 06/14/19 04:54 Rouleaux Not Reportable 06/14/19 04:54 Hemoglobin C Crystals Not Reportable 06/14/19 04:54 Schistocytes Not Reportable 06/14/19 04:54 Malaria parasites Not Reportable 06/14/19 04:54 Jj Bodies Not Reportable 06/14/19 04:54 Hem Pathologist Commnt No 06/14/19 04:54 PT 13.5 Sec. (12.2-14.9) 06/14/19 04:54 INR 1.04 (0.87-1.13) 06/14/19 04:54 APTT 34.3 Sec. (24.2-36.6) 06/12/19 21:27 D-Dimer 472.88 ng/mlDDU (0-234) H 06/12/19 21:27 POC ABG pH 7.416 (7.35-7.45) 06/12/19 23:59 POC ABG pCO2 49.9 (35-45) H 06/12/19 23:59 POC ABG pO2 56 (80-105) L 06/12/19 23:59 POC ABG HCO3 32.0 (22-26 mml/L) 06/12/19 23:59 POC ABG Total CO2 34 (23-27mmol/L) 06/12/19 23:59 POC ABG O2 Sat 89 06/12/19 23:59 POC ABG Base Excess 8 ((-2) - (+3)mmol/L) 06/12/19 23:59 FiO2 21 % 06/12/19 23:59 Sodium 144 mmol/L (137-145) 06/14/19 04:54 Potassium 3.9 mmol/L (3.6-5.0) 06/14/19 04:54 Chloride 99.8 mmol/L (98-107) 06/14/19 04:54 Carbon Dioxide 29 mmol/L (22-30) 06/14/19 04:54 Anion Gap 19 mmol/L 06/14/19 04:54 BUN 9 mg/dL (7-17) 06/14/19 04:54 Creatinine 0.6 mg/dL (0.7-1.2) L 06/14/19 04:54 Estimated GFR > 60 ml/min 06/14/19 04:54 BUN/Creatinine Ratio 15 % 06/14/19 04:54 Glucose 164 mg/dL (65-100) H 06/14/19 04:54 Calcium 8.4 mg/dL (8.4-10.2) 06/14/19 04:54 Total Bilirubin 0.50 mg/dL (0.1-1.2) 06/12/19 21: AST 23 units/L (5-40) 06/12/19: ALT 32 units/L (7-56) 06/12/19: Alkaline Phosphatase 50 units/L (35-129) 06/12/19 21: Troponin T < 0.010 ng/mL (0.00-0.029) 06/13/19 00:09 NT-Pro-B Natriuret Pep 332.1 pg/mL (0-900) 06/12/19 21: Total Protein 7.5 g/dL (6.3-8.2) 06/12/19: Albumin 4.0 g/dL (3.9-5) 06/12/19: Albumin/Globulin Ratio 1.1 % 06/12/19: Urine Color Straw (Yellow) 06/12/19 23:00 Urine Turbidity Clear (Clear) 06/12/19 23:00 Urine pH 8.0 (5.0-7.0) H 06/12/19 23:00 Ur Specific [place] 1.009 (1.003-1.030) 06/12/19 23:00 Urine Protein <15 mg/dl mg/dL (Negative) 06/12/19 23:00 Urine Glucose (UA) Neg mg/dL (Negative) 06/12/19 23:00 Urine Ketones Neg mg/dL (Negative) 06/12/19 23:00 Urine Blood Neg (Negative) 06/12/19 23:00 Urine Nitrite Neg (Negative) 06/12/19 23:00 Urine Bilirubin Neg (Negative) 06/12/19 23:00 Urine Urobilinogen < 2.0 mg/dL (<2.0) 06/12/19 23:00 Ur Leukocyte Esterase Neg (Negative) 06/12/19 23:00 Urine WBC (Auto) 2.0 /HPF (0.0-6.0) 06/12/19 23:00 Urine RBC (Auto) 1.0 /HPF (0.0-6.0) 06/12/19 23:00 U Epithel Cells (Auto) 4.0 /HPF (0-13.0) 06/12/19 23:00 Urine Bacteria (Auto) 1+ /HPF (Negative) 06/12/19 23:00 Urine Mucus Few /HPF 06/12/19 23:00 Active Medications - Current Medications Current Medications: Generic Name Dose Route Start Last Admin Trade Name Freq PRN Reason Stop Dose Admin Acetaminophen 650 mg 06/13/19 03:19 Tylenol PO Q4H PRN Pain MILD(1-3)/Fever >100.5/FISHER Albuterol/Ipratropium 1 ampul 06/13/19 08:00 06/15/19 07:26 Duoneb *Not For Prn Use* IH 1 ampul Q6HRT DANIELLE Administration Benzonatate 100 mg 06/14/19 17:09 06/15/19 06:33 Tessalon Perles PO 100 mg Q8H PRN Administration Cough Enoxaparin Sodium 40 mg 06/14/19 10:00 06/14/19 10:47 Enoxaparin SUB-Q 40 mg QDAY DANIELLE Administration Famotidine 20 mg 06/14/19 10:00 06/14/19 10:48 Pepcid PO 20 mg QDAY DANIELLE Administration Furosemide 20 mg 06/14/19 18:00 06/15/19 06:06 Lasix IV 20 mg 0600,1800 DANIELLE Administration Guaifenesin 200 mg 06/14/19 01:55 06/14/19 23:50 Robitussin PO 200 mg Q6H PRN Administration Cough Levofloxacin/Dextrose 750 mg in 150 mls @ 100 mls/hr 06/13/19 10:00 06/14/19 10:48 Levaquin 750mg/150ml IV 100 mls/hr Q24HR DANIELLE Administration Protocol Magnesium Hydroxide 30 ml 06/13/19 03:19 Milk Of Magnesia PO Q4H PRN Constipation Methylprednisolone Sodium Succinate 40 mg 06/13/19 06:00 06/15/19 06:06 Solu-Medrol IV 40 mg Q6HR DANIELLE Administration Nicotine 7 mg 06/14/19 18:00 06/14/19 18:33 Habitrol TD 7 mg QDAY DANIELLE Administration Ondansetron HCl 4 mg 06/13/19 03:19 Zofran IV Q8H PRN Nausea And Vomiting Sodium Chloride 10 ml 06/13/19 10:00 06/14/19 21:14 Sodium Chloride Flush Syringe 10 Ml IV 10 ml BID DANIELLE Administration Sodium Chloride 10 ml 06/13/19 03:19 06/14/19 05:31 Sodium Chloride Flush Syringe 10 Ml IV 10 ml PRN PRN Administration LINE FLUSH
[2019-06-15] MEDS: guaiFENesin 100 MG/5 ML ORAL LIQD PO PRN ×2 (08:49→21:30)
[2019-06-15] MEDS: NICOTINE 7 MG/24 HR PATCH TD SCH (08:59)
[2019-06-15] MEDS: FAMOTIDINE 20 MG TAB PO SCH (09:00)
[2019-06-15] MEDS: ENOXAPARIN 40 MG/0.4 ML INJ SUB-Q SCH (09:00)
--- NOTE | 2019-06-15 12:56 | Progress Note ---
Assessment and Plan Acute hypoxic-hypercapnic respiratory failure on oxygen at 2L/min -AE-COPD -Tobacco use disorder/Nicotine dependence -Morbid obesity BMI 40.5 Continue with current care Needs home oxygen evaluation prior to discharge Will need pulmonary outpatient follow up post discharge Steroid taper Discharge planning -Continue with supplemental oxygen to keep O2 sats 88-90% -Bronchodilators- JALIL/JEROMY, ICS -Steroids with glycemic control, target blood glucose 180mg/dL -VTE prophylaxis -Stress ulcer prophylaxis -Airway clearance -Smoking cessation counselling done at the bedside -Weight loss and lifestyle modifications Subjective Date of service: 06/15/19 Interval history: Patient is seen today for: acute hypoxic-hypercapnic respiratory failure; AE- COPD; Tobacco use disorder, nicotine dependence Seen and examined at bedside; 24hour events reviewed; nursing and respiratory care staff consulted; no adverse overnight events reported to me; Vitals, labs, medications, chart are reviewed. Imaging reviewed. She remains short of breath but improving, with a dry cough, no nausea or vomiting, no diarrhea. Daughter visiting Objective Vital Signs - 12hr 06/15/19 06/15/19 06/15/19 02:00 02:21 02:53 Temperature Pulse Rate 78 Pulse Rate [ 67 Bilateral] Respiratory Rate Respiratory 16 Rate [Bilateral ] Blood Pressure O2 Sat by Pulse 99 Oximetry 06/15/19 06/15/19 06/15/19 05:36 07:28 07:47 Temperature 98.6 F Pulse Rate 76 Pulse Rate [ 70 Bilateral] Respiratory 20 Rate Respiratory 18 Rate [Bilateral ] Blood Pressure 107/69 O2 Sat by Pulse 96 96 Oximetry Constitutional: no acute distress, alert Eyes: non-icteric ENT: oropharynx moist Neck: supple, no JVD Effort: mildly labored Ascultation: Bilateral: diminished breath sounds, other (Prolonged expiratory phase.) Cardiovascular: regular rate and rhythm Gastrointestinal: normoactive bowel sounds, soft, non-tender Integumentary: normal Extremities: no cyanosis, edema Neurologic: normal mental status, non-focal exam, pupils equal and round, CN II- XII normal Psychiatric: mood appropriate CBC and BMP: 06/14/19 04:54 06/14/19 04:54 ABG, PT/INR, D-dimer: ABG POC ABG pH 7.416 (7.35-7.45) 06/12/19 23:59 POC ABG pCO2 49.9 (35-45) H 06/12/19 23:59 POC ABG pO2 56 (80-105) L 06/12/19 23:59 POC ABG HCO3 32.0 (22-26 mml/L) 06/12/19 23:59 POC ABG Total CO2 34 (23-27mmol/L) 06/12/19 23:59 POC ABG O2 Sat 89 06/12/19 23:59 PT/INR, D-dimer PT 13.5 Sec. (12.2-14.9) 06/14/19 04:54 INR 1.04 (0.87-1.13) 06/14/19 04:54 D-Dimer 472.88 ng/mlDDU (0-234) H 06/12/19 21:27 Abnormal lab findings: Abnormal Labs 06/12/19 06/12/19 06/12/19 21:27 21:27 21:27 WBC [place] % (Auto) 7.9 H Seg Neuts % (Manual) Lymphocytes % (Manual) Seg Neutrophils # Man D-Dimer 472.88 H POC ABG pCO2 POC ABG pO2 Potassium 3.3 L Creatinine 0.6 L Glucose 116 H Urine pH 06/12/19 06/12/19 06/14/19 23:00 23:59 04:54 WBC 15.1 H [place] % (Auto) Seg Neuts % (Manual) 89.0 H Lymphocytes % (Manual) 9.0 L Seg Neutrophils # Man 13.4 H D-Dimer POC ABG pCO2 49.9 H POC ABG pO2 56 L Potassium Creatinine Glucose Urine pH 8.0 H 06/14/19 04:54 WBC [place] % (Auto) Seg Neuts % (Manual) Lymphocytes % (Manual) Seg Neutrophils # Man D-Dimer POC ABG pCO2 POC ABG pO2 Potassium Creatinine 0.6 L Glucose 164 H Urine pH
[2019-06-16] MEDS: IPRATROPIUM/ALBUTEROL SULFATE 3 ML AMPUL.NEB IH SCH ×4 (01:42→20:25)
[2019-06-16] MEDS: methylPREDNISolone Sod Succinate 40 MG/1 ML INJ IV SCH ×4 (06:20→23:12)
[2019-06-16] MEDS: FUROSEMIDE 20 MG/2 ML INJ IV SCH (06:21)
--- NOTE | 2019-06-16 08:28 | Progress Note ---
Assessment and Plan Acute COPD exacerbation Acute hypoxemic and hypercapnic Respiratory Failure Tobacco abuse Morbid obesity with BMI of 40.0-44.9, adult Obstructive sleep apnea - continue supplemental oxygen as needed to keep O2 sat's > 90% - continue bronchodilators with pulmonary hygiene per RT - continue systemic steroids with taper - Add inhaled corticosteroids - continue CPAP scheduled qhs / while asleep - weight loss counseled - tobacco abstinence strongly counseled - continue nicotine replacement therapy - complete empiric CAP AB's therapy with Levaquin - PT/OT as tolerated - mobility protocols for pressure ulcer prophylaxis - GI & VTE prophylaxis - Flu & pneumovax addressed per protocol - continue other care per attending / other consultants ... re-evaluate in am & prn Subjective Date of service: 06/16/19 Principal diagnosis: AE-COPD; Ac hypoxemic and hypercapnic Resp Failure; Tobacco abuse; ANANDA Interval history: Patient is seen today for: AE-COPD; Acute hypoxemic and hypercapnic Resp Failure; Tobacco abuse; Morbid obesity with BMI of 40.0-44.9, adult; Obstructive sleep apnea Seen and examined at bedside; 24hour events reviewed; nursing and respiratory care staff consulted; no adverse overnight events reported to me; Objective Vital Signs - 12hr 06/15/19 06/16/19 06/16/19 23:46 01:44 02:00 Temperature 97.9 F Pulse Rate 74 Pulse Rate [ 67 Bilateral] Respiratory 19 18 Rate Respiratory 17 Rate [Bilateral ] Blood Pressure 138/85 O2 Sat by Pulse 96 Oximetry 06/16/19 06/16/19 06/16/19 04:00 05:11 07:28 Temperature 98.1 F Pulse Rate 74 67 Pulse Rate [ 86 Bilateral] Respiratory 20 Rate Respiratory 20 Rate [Bilateral ] Blood Pressure 128/77 O2 Sat by Pulse 94 Oximetry 06/16/19 07:29 Temperature Pulse Rate Pulse Rate [ Bilateral] Respiratory Rate Respiratory Rate [Bilateral ] Blood Pressure O2 Sat by Pulse 96 Oximetry Constitutional: no acute distress, alert Eyes: non-icteric ENT: oropharynx moist Neck: supple, no JVD Effort: mildly labored Ascultation: Bilateral: diminished breath sounds, other (Prolonged expiratory phase.) Cardiovascular: regular rate and rhythm Gastrointestinal: normoactive bowel sounds, soft, non-tender Integumentary: normal Extremities: no cyanosis, edema Neurologic: normal mental status, non-focal exam, pupils equal and round, CN II- XII normal Psychiatric: mood appropriate CBC and BMP: 06/14/19 04:54 06/14/19 04:54 ABG, PT/INR, D-dimer: ABG POC ABG pH 7.416 (7.35-7.45) 06/12/19 23:59 POC ABG pCO2 49.9 (35-45) H 06/12/19 23:59 POC ABG pO2 56 (80-105) L 06/12/19 23:59 POC ABG HCO3 32.0 (22-26 mml/L) 06/12/19 23:59 POC ABG Total CO2 34 (23-27mmol/L) 06/12/19 23:59 POC ABG O2 Sat 89 06/12/19 23:59 PT/INR, D-dimer PT 13.5 Sec. (12.2-14.9) 06/14/19 04:54 INR 1.04 (0.87-1.13) 06/14/19 04:54 D-Dimer 472.88 ng/mlDDU (0-234) H 06/12/19 21:27 Abnormal lab findings: Abnormal Labs 06/12/19 06/12/19 06/12/19 21:27 21:27 21:27 WBC Brooke % (Auto) 7.9 H Seg Neuts % (Manual) Lymphocytes % (Manual) Seg Neutrophils # Man D-Dimer 472.88 H POC ABG pCO2 POC ABG pO2 Potassium 3.3 L Creatinine 0.6 L Glucose 116 H Urine pH 06/12/19 06/12/19 06/14/19 23:00 23:59 04:54 WBC 15.1 H Brooke % (Auto) Seg Neuts % (Manual) 89.0 H Lymphocytes % (Manual) 9.0 L Seg Neutrophils # Man 13.4 H D-Dimer POC ABG pCO2 49.9 H POC ABG pO2 56 L Potassium Creatinine Glucose Urine pH 8.0 H 06/14/19 04:54 WBC [place]oke % (Auto) Seg Neuts % (Manual) Lymphocytes % (Manual) Seg Neutrophils # Man D-Dimer POC ABG pCO2 POC ABG pO2 Potassium Creatinine 0.6 L Glucose 164 H Urine pH
[2019-06-16] MEDS: ENOXAPARIN 40 MG/0.4 ML INJ SUB-Q SCH (09:10)
[2019-06-16] MEDS: guaiFENesin 100 MG/5 ML ORAL LIQD PO PRN ×2 (09:10→23:20)
[2019-06-16] MEDS: FAMOTIDINE 20 MG TAB PO SCH (09:11)
[2019-06-16] MEDS: NICOTINE 7 MG/24 HR PATCH TD SCH (09:17)
--- NOTE | 2019-06-16 11:29 | Progress Note ---
Assessment and Plan Assessment and plan: 58-year-old female with known history of COPD, hypertension, CHF and sleep apnea resented to the emergency room today complaining of shortness of breath and productive cough x 2 -3 days She continues to smoke about half a pack of cigarette daily. she had no insurance and was using her sisters oxygen and inhalers at home, recently approved for SS disability and medicare/medicaid Past History Past Medical History: COPD, heart failure, hypertension, other (Hypotonia syndrome) plan -cont steroids, nebs, oxygen, rescue bipap as needed, pulm input appreciated smoking cessation counseling provided, nicotine patches prn cont cpap qhs LE edema resolved with lasix, echo show preserved EF, LE dopplers neg for dvt CM consult for home oxygen, home eval in progress Tobacco abuse/dependence Smoking cessation counseling performed for 10 minutes, nicotine patches when n ecessary Preventative health counseling performed for 17 minutes Dx Acute hypoxic and hypercapnic resp failure COPD exacerbation ANANDA, has cpap at home tobacco abuse/dependence LE edema, fluid overload dvt ppx: lovenox History Interval history: Review of systems Constitutional: No fevers, no malaise, no joint pains CVS: No chest pain, orthopnea and pedal edema have improved GI: No abdominal pain, no diarrhea, no vomiting, no constipation Respiratory: Continues to complain of shortness of breath and wheezing Hospitalist Physical - Physical exam Narrative exam: General.: Appears well, no distress, nontoxic HEENT: Moist mucous membranes, extraocular muscles intact, no lymphadenopathy Neck: supple Cardiac: S1-S2 heard Lungs: Decreased air entry, bibasilar rales, wheezing Abdomen: soft , nontender, nondistended, bowel sounds positive Extremities: 1+ bipedal edema Skin: no rash or lesions Neurologic: no gross focal deficits Psych: calm, and cooperative - Constitutional Vitals: Temp Pulse Resp BP Pulse Ox 98.1 F 86 20 128/77 96 06/16/19 05:11 06/16/19 07:28 06/16/19 07:28 06/16/19 05:11 06/16/19 07:29 Results - Labs CBC & Chem 7: 06/14/19 04:54 06/14/19 04:54 Labs: Laboratory Last Values WBC 15.1 K/mm3 (4.5-11.0) H 06/14/19 04:54 RBC 4.27 M/mm3 (3.65-5.03) 06/14/19 04:54 Hgb 12.8 gm/dl (10.1-14.3) 06/14/19 04:54 Hct 39.1 % (30.3-42.9) 06/14/19 04:54 MCV 92 fl (79-97) 06/14/19 04:54 MCH 30 pg (28-32) 06/14/19 04:54 MCHC 33 % (30-34) 06/14/19 04:54 RDW 14.6 % (13.2-15.2) 06/14/19 04:54 Plt Count 212 K/mm3 (140-440) 06/14/19 04:54 Lymph % (Auto) 20.2 % (13.4-35.0) 06/12/19 21:27 [place] % (Auto) 7.9 % (0.0-7.3) H 06/12/19 21:27 Eos % (Auto) 1.8 % (0.0-4.3) 06/12/19 21:27 Baso % (Auto) 0.6 % (0.0-1.8) 06/12/19 21:27 Lymph # 1.6 K/mm3 (1.2-5.4) 06/12/19 21:27 [place] # 0.6 K/mm3 (0.0-0.8) 06/12/19 21:27 Eos # 0.1 K/mm3 (0.0-0.4) 06/12/19 21:27 Baso # 0.0 K/mm3 (0.0-0.1) 06/12/19 21:27 Add Manual Diff Complete 06/14/19 04:54 Total Counted 100 06/14/19 04:54 Seg Neutrophils % Manager Therapy 06/14/19 04:54 Seg Neuts % (Manual) 89.0 % (40.0-70.0) H 06/14/19 04:54 Band Neutrophils % 0 % 06/14/19 04:54 Lymphocytes % (Manual) 9.0 % (13.4-35.0) L 06/14/19 04:54 Reactive Lymphs % (Man) 0 % 06/14/19 04:54 Monocytes % (Manual) 2.0 % (0.0-7.3) 06/14/19 04:54 Eosinophils % (Manual) 0 % (0.0-4.3) 06/14/19 04:54 Basophils % (Manual) 0 % (0.0-1.8) 06/14/19 04:54 Metamyelocytes % 0 % 06/14/19 04:54 Myelocytes % 0 % 06/14/19 04:54 Promyelocytes % 0 % 06/14/19 04:54 Blast Cells % 0 % 06/14/19 04:54 Nucleated RBC % Not Reportable 06/14/19 04:54 Seg Neutrophils # 5.4 K/mm3 (1.8-7.7) 06/12/19 21:27 Seg Neutrophils # Man 13.4 K/mm3 (1.8-7.7) H 06/14/19 04:54 Band Neutrophils # 0.0 K/mm3 06/14/19 04:54 Lymphocytes # (Manual) 1.4 K/mm3 (1.2-5.4) 06/14/19 04:54 Abs React Lymphs (Man) 0.0 K/mm3 06/14/19 04:54 Monocytes # (Manual) 0.3 K/mm3 (0.0-0.8) 06/14/19 04:54 Eosinophils # (Manual) 0.0 K/mm3 (0.0-0.4) 06/14/19 04:54 Basophils # (Manual) 0.0 K/mm3 (0.0-0.1) 06/14/19 04:54 Metamyelocytes # 0.0 K/mm3 06/14/19 04:54 Myelocytes # 0.0 K/mm3 06/14/19 04:54 Promyelocytes # 0.0 K/mm3 06/14/19 04:54 Blast Cells # 0.0 K/mm3 06/14/19 04:54 WBC Morphology Not Reportable 06/14/19 04:54 Hypersegmented Neuts Not Reportable 06/14/19 04:54 Hyposegmented Neuts Not Reportable 06/14/19 04:54 Hypogranular Neuts Not Reportable 06/14/19 04:54 Smudge Cells Not Reportable 06/14/19 04:54 Toxic Granulation Not Reportable 06/14/19 04:54 Toxic Vacuolation Not Reportable 06/14/19 04:54 Dohle Bodies Not Reportable 06/14/19 04:54 Pelger-Huet Anomaly Not Reportable 06/14/19 04:54 Daly Rods Not Reportable 06/14/19 04:54 Platelet Estimate Consistent w auto 06/14/19 04:54 Clumped Platelets Not Reportable 06/14/19 04:54 Plt Clumps, EDTA Not Reportable 06/14/19 04:54 Large Platelets Not Reportable 06/14/19 04:54 Giant Platelets Not Reportable 06/14/19 04:54 Platelet Satelliting Not Reportable 06/14/19 04:54 Plt Morphology Comment Not Reportable 06/14/19 04:54 RBC Morphology Not Reportable 06/14/19 04:54 Dimorphic RBCs Not Reportable 06/14/19 04:54 Polychromasia Not Reportable 06/14/19 04:54 Hypochromasia Not Reportable 06/14/19 04:54 Poikilocytosis Not Reportable 06/14/19 04:54 Anisocytosis 1+ 06/14/19 04:54 Microcytosis Not Reportable 06/14/19 04:54 Macrocytosis Rare 06/14/19 04:54 Spherocytes Not Reportable 06/14/19 04:54 Pappenheimer Bodies Not Reportable 06/14/19 04:54 Sickle Cells Not Reportable 06/14/19 04:54 Target Cells Not Reportable 06/14/19 04:54 Tear Drop Cells Not Reportable 06/14/19 04:54 Ovalocytes Not Reportable 06/14/19 04:54 Helmet Cells Not Reportable 06/14/19 04:54 Kc-Seagraves Bodies Not Reportable 06/14/19 04:54 Frederick Rings Not Reportable 06/14/19 04:54 Newton Cells Not Reportable 06/14/19 04:54 Bite Cells Not Reportable 06/14/19 04:54 Crenated Cell Not Reportable 06/14/19 04:54 Elliptocytes Not Reportable 06/14/19 04:54 Acanthocytes (Spur) Not Reportable 06/14/19 04:54 Rouleaux Not Reportable 06/14/19 04:54 Hemoglobin C Crystals Not Reportable 06/14/19 04:54 Schistocytes Not Reportable 06/14/19 04:54 Malaria parasites Not Reportable 06/14/19 04:54 Jj Bodies Not Reportable 06/14/19 04:54 Hem Pathologist Commnt No 06/14/19 04:54 PT 13.5 Sec. (12.2-14.9) 06/14/19 04:54 INR 1.04 (0.87-1.13) 06/14/19 04:54 APTT 34.3 Sec. (24.2-36.6) 06/12/19 21:27 D-Dimer 472.88 ng/mlDDU (0-234) H 06/12/19 21:27 POC ABG pH 7.416 (7.35-7.45) 06/12/19 23:59 POC ABG pCO2 49.9 (35-45) H 06/12/19 23:59 POC ABG pO2 56 (80-105) L 06/12/19 23:59 POC ABG HCO3 32.0 (22-26 mml/L) 06/12/19 23:59 POC ABG Total CO2 34 (23-27mmol/L) 06/12/19 23:59 POC ABG O2 Sat 89 06/12/19 23:59 POC ABG Base Excess 8 ((-2) - (+3)mmol/L) 06/12/19 23:59 FiO2 21 % 06/12/19 23:59 Sodium 144 mmol/L (137-145) 06/14/19 04:54 Potassium 3.9 mmol/L (3.6-5.0) 06/14/19 04:54 Chloride 99.8 mmol/L (98-107) 06/14/19 04:54 Carbon Dioxide 29 mmol/L (22-30) 06/14/19 04:54 Anion Gap 19 mmol/L 06/14/19 04:54 BUN 9 mg/dL (7-17) 06/14/19 04:54 Creatinine 0.6 mg/dL (0.7-1.2) L 06/14/19 04:54 Estimated GFR > 60 ml/min 06/14/19 04:54 BUN/Creatinine Ratio 15 % 06/14/19 04:54 Glucose 164 mg/dL (65-100) H 06/14/19 04:54 Calcium 8.4 mg/dL (8.4-10.2) 06/14/19 04:54 Total Bilirubin 0.50 mg/dL (0.1-1.2) 06/12/19 21:27 AST 23 units/L (5-40) 06/12/19 21: ALT 32 units/L (7-56) 06/12/19 21:27 Alkaline Phosphatase 50 units/L (35-129) 06/12/19 21: Troponin T < 0.010 ng/mL (0.00-0.029) 06/13/19 00:09 NT-Pro-B Natriuret Pep 332.1 pg/mL (0-900) 06/12/19 21: Total Protein 7.5 g/dL (6.3-8.2) 06/12/19 21: Albumin 4.0 g/dL (3.9-5) 06/12/19 21: Albumin/Globulin Ratio 1.1 % 06/12/19 21:27 Urine Color Straw (Yellow) 06/12/19 23:00 Urine Turbidity Clear (Clear) 06/12/19 23:00 Urine pH 8.0 (5.0-7.0) H 06/12/19 23:00 Ur Specific [place] 1.009 (1.003-1.030) 06/12/19 23:00 Urine Protein <15 mg/dl mg/dL (Negative) 06/12/19 23:00 Urine Glucose (UA) Neg mg/dL (Negative) 06/12/19 23:00 Urine Ketones Neg mg/dL (Negative) 06/12/19 23:00 Urine Blood Neg (Negative) 06/12/19 23:00 Urine Nitrite Neg (Negative) 06/12/19 23:00 Urine Bilirubin Neg (Negative) 06/12/19 23:00 Urine Urobilinogen < 2.0 mg/dL (<2.0) 06/12/19 23:00 Ur Leukocyte Esterase Neg (Negative) 06/12/19 23:00 Urine WBC (Auto) 2.0 /HPF (0.0-6.0) 06/12/19 23:00 Urine RBC (Auto) 1.0 /HPF (0.0-6.0) 06/12/19 23:00 U Epithel Cells (Auto) 4.0 /HPF (0-13.0) 06/12/19 23:00 Urine Bacteria (Auto) 1+ /HPF (Negative) 06/12/19 23:00 Urine Mucus Few /HPF 06/12/19 23:00 Active Medications - Current Medications Current Medications: Generic Name Dose Route Start Last Admin Trade Name Freq PRN Reason Stop Dose Admin Acetaminophen 650 mg 06/13/19 03:19 Tylenol PO Q4H PRN Pain MILD(1-3)/Fever >100.5/FISHER Albuterol 2.5 mg 06/15/19 19:37 Proventil IH Q4HRT PRN Shortness Of Breath Albuterol/Ipratropium 1 ampul 06/13/19 08:00 06/16/19 07:27 Duoneb *Not For Prn Use* IH 1 ampul Q6HRT DANIELLE Administration Arformoterol Tartrate 15 mcg 06/16/19 20:00 Brovana Nebu IH Q12HRT DANIELLE Benzonatate 100 mg 06/14/19 17:09 06/15/19 23:40 Tessalon Perles PO 100 mg Q8H PRN Administration Cough Budesonide 0.25 mg 06/16/19 20:00 Pulmicort IH Q12HRT DANIELLE Enoxaparin Sodium 40 mg 06/14/19 10:00 06/16/19 09:10 Enoxaparin SUB-Q 40 mg QDAY DANIELLE Administration Famotidine 20 mg 06/14/19 10:00 06/16/19 09:11 Pepcid PO 20 mg QDAY DANIELLE Administration Furosemide 20 mg 06/14/19 18:00 06/16/19 06:21 Lasix IV 20 mg 0600,1800 DANIELLE Administration Guaifenesin 200 mg 06/14/19 01:55 06/16/19 09:10 Robitussin PO 200 mg Q6H PRN Administration Cough Levofloxacin/Dextrose 750 mg in 150 mls @ 100 mls/hr 06/13/19 10:00 06/16/19 09:09 Levaquin 750mg/150ml IV 100 mls/hr Q24HR DANIELLE Administration Protocol Magnesium Hydroxide 30 ml 06/13/19 03:19 Milk Of Magnesia PO Q4H PRN Constipation Methylprednisolone Sodium Succinate 40 mg 06/13/19 06:00 06/16/19 06:20 Solu-Medrol IV 40 mg Q6HR DANIELLE Administration Nicotine 7 mg 06/14/19 18:00 06/16/19 09:17 Habitrol TD 7 mg QDAY DANIELLE Administration Ondansetron HCl 4 mg 06/13/19 03:19 Zofran IV Q8H PRN Nausea And Vomiting Sodium Chloride 10 ml 06/13/19 10:00 06/16/19 09:11 Sodium Chloride Flush Syringe 10 Ml IV 10 ml BID DANIELLE Administration Sodium Chloride 10 ml 06/13/19 03:19 06/14/19 05:31 Sodium Chloride Flush Syringe 10 Ml IV 10 ml PRN PRN Administration LINE FLUSH
--- NOTE | 2019-06-16 14:33 | Progress Note ---
Assessment and Plan Acute hypoxic-hypercapnic respiratory failure on oxygen at 2L/min -AE-COPD -Tobacco use disorder/Nicotine dependence -Morbid obesity BMI 40.5 Continue with current care Needs home oxygen evaluation prior to discharge Will need pulmonary outpatient follow up post discharge Steroid taper On discharge will need LABA/LAMA and short steroid taper Discharge planning, discussed with the patient- re smoking cessation and adherence with medical therapies -Continue with supplemental oxygen to keep O2 sats 88-90% -Bronchodilators- JALIL/JEROMY, ICS -Steroids with glycemic control, target blood glucose 180mg/dL -VTE prophylaxis -Stress ulcer prophylaxis -Airway clearance -Smoking cessation counselling done at the bedside -Weight loss and lifestyle modifications Subjective Date of service: 06/16/19 Principal diagnosis: AE-COPD; Ac hypoxemic and hypercapnic Resp Failure; Tobacco abuse; ANANDA Interval history: Patient is seen today for: acute hypoxic-hypercapnic respiratory failure; AE- COPD; Tobacco use disorder, nicotine dependence Seen and examined at bedside; 24hour events reviewed; nursing and respiratory care staff consulted; no adverse overnight events reported to me; Vitals, labs, medications, chart are reviewed. Imaging reviewed. She remains short of breath but improving, with a dry cough, no nausea or vomiting, no diarrhea. Daughter visiting. She is able to ambulate without having to stop multiple times to catch her breath Objective Vital Signs - 12hr 06/16/19 06/16/19 06/16/19 04:00 05:11 07:28 Temperature 98.1 F Pulse Rate 74 67 Pulse Rate [ 86 Bilateral] Respiratory 20 Rate Respiratory 20 Rate [Bilateral ] Blood Pressure 128/77 O2 Sat by Pulse 94 Oximetry 06/16/19 06/16/19 06/16/19 07:29 11:47 13:41 Temperature 97.9 F Pulse Rate 86 Pulse Rate [ 86 Bilateral] Respiratory 20 Rate Respiratory 18 Rate [Bilateral ] Blood Pressure 143/84 O2 Sat by Pulse 96 90 Oximetry Constitutional: no acute distress, alert Eyes: non-icteric ENT: oropharynx moist Neck: supple, no JVD Effort: mildly labored Ascultation: Bilateral: clear, diminished breath sounds Cardiovascular: regular rate and rhythm, other (S1,S2, no murmurs, gallops or rubs) Gastrointestinal: normoactive bowel sounds, soft, non-tender, non-distended Integumentary: normal Extremities: no cyanosis, edema Neurologic: normal mental status, non-focal exam, pupils equal and round, CN II- XII normal Psychiatric: mood appropriate, affect normal CBC and BMP: 06/14/19 04:54 06/14/19 04:54 ABG, PT/INR, D-dimer: ABG POC ABG pH 7.416 (7.35-7.45) 06/12/19 23:59 POC ABG pCO2 49.9 (35-45) H 06/12/19 23:59 POC ABG pO2 56 (80-105) L 06/12/19 23:59 POC ABG HCO3 32.0 (22-26 mml/L) 06/12/19 23:59 POC ABG Total CO2 34 (23-27mmol/L) 06/12/19 23:59 POC ABG O2 Sat 89 06/12/19 23:59 PT/INR, D-dimer PT 13.5 Sec. (12.2-14.9) 06/14/19 04:54 INR 1.04 (0.87-1.13) 06/14/19 04:54 D-Dimer 472.88 ng/mlDDU (0-234) H 06/12/19 21:27 Abnormal lab findings: Abnormal Labs 06/12/19 06/12/19 06/12/19 21:27 21:27 21:27 WBC [place] % (Auto) 7.9 H Seg Neuts % (Manual) Lymphocytes % (Manual) Seg Neutrophils # Man D-Dimer 472.88 H POC ABG pCO2 POC ABG pO2 Potassium 3.3 L Creatinine 0.6 L Glucose 116 H Urine pH 06/12/19 06/12/19 06/14/19 23:00 23:59 04:54 WBC 15.1 H [place] % (Auto) Seg Neuts % (Manual) 89.0 H Lymphocytes % (Manual) 9.0 L Seg Neutrophils # Man 13.4 H D-Dimer POC ABG pCO2 49.9 H POC ABG pO2 56 L Potassium Creatinine Glucose Urine pH 8.0 H 06/14/19 04:54 WBC [place] % (Auto) Seg Neuts % (Manual) Lymphocytes % (Manual) Seg Neutrophils # Man D-Dimer POC ABG pCO2 POC ABG pO2 Potassium Creatinine 0.6 L Glucose 164 H Urine pH Allied health notes reviewed: RT
[2019-06-16] MEDS: BENZONATATE 100 MG CAP PO PRN (17:28)
[2019-06-16] MEDS: ARFORMOTEROL 15 MCG/2 ML NEBU IH SCH (20:25)
[2019-06-16] MEDS: BUDESONIDE 0.25 MG/2 ML NEBU IH SCH (20:25)
[2019-06-17] MEDS: IPRATROPIUM/ALBUTEROL SULFATE 3 ML AMPUL.NEB IH SCH ×4 (02:25→20:28)
[2019-06-17] MEDS: guaiFENesin 100 MG/5 ML ORAL LIQD PO PRN (05:32)
[2019-06-17] MEDS: methylPREDNISolone Sod Succinate 40 MG/1 ML INJ IV SCH ×3 (05:32→17:38)
[2019-06-17] MEDS: BUDESONIDE 0.25 MG/2 ML NEBU IH SCH ×2 (08:06→20:28)
[2019-06-17] MEDS: ARFORMOTEROL 15 MCG/2 ML NEBU IH SCH ×2 (08:06→20:28)
--- NOTE | 2019-06-17 10:08 | Progress Note ---
Assessment and Plan Acute hypoxic-hypercapnic respiratory failure on oxygen at 2L/min -AE-COPD -Tobacco use disorder/Nicotine dependence -Morbid obesity BMI 40.5 Continue with current care and all current therapies Steroid taper-stop IV solumedrol, start oral prednisone in the morning Stop IV levofloxacin and change to oral Levofloxacin, complete 5 days of antibiotics therapy for severe AE-COPD Needs home oxygen evaluation prior to discharge Will need pulmonary outpatient follow up post discharge On discharge will need LABA/LAMA and short steroid taper Discharge planning, discussed with the patient- re smoking cessation and adherence with medical therapies She does state that she has used her sister's nebulizer and inhalers in the past. -Continue with supplemental oxygen to keep O2 sats 88-90% -Bronchodilators- JALIL/JEROMY, ICS -Steroids with glycemic control, target blood glucose 180mg/dL -VTE prophylaxis -Stress ulcer prophylaxis -Airway clearance -Weight loss and lifestyle modifications Subjective Date of service: 06/17/19 Principal diagnosis: AE-COPD; Ac hypoxemic and hypercapnic Resp Failure; Tobacco abuse; ANANDA Interval history: Patient is seen today for: acute hypoxic-hypercapnic respiratory failure; AE- COPD; Tobacco use disorder, nicotine dependence Seen and examined at bedside; 24hour events reviewed; nursing and respiratory care staff consulted; no adverse overnight events reported to me; Vitals, labs, medications, chart are reviewed. Feels much better, with a dry cough, no nausea or vomiting, no diarrhea. Daughter visiting. Objective Vital Signs - 12hr 06/16/19 06/17/19 06/17/19 22:42 02:25 05:15 Temperature 98.7 F 98.3 F Pulse Rate 78 60 Pulse Rate [ 72 Bilateral] Respiratory 20 20 Rate Respiratory 20 Rate [Bilateral ] Blood Pressure 106/58 132/66 O2 Sat by Pulse 98 92 Oximetry 06/17/19 06/17/19 06/17/19 08:00 08:09 08:24 Temperature Pulse Rate Pulse Rate [ 72 Bilateral] Respiratory 16 Rate Respiratory 20 Rate [Bilateral ] Blood Pressure O2 Sat by Pulse 97 Oximetry Constitutional: no acute distress, alert Eyes: non-icteric ENT: oropharynx moist Neck: supple, no JVD Effort: mildly labored Ascultation: Bilateral: clear, diminished breath sounds Cardiovascular: regular rate and rhythm, other (S1,S2, no murmurs, gallops or r ubs) Gastrointestinal: normoactive bowel sounds, soft, non-tender, non-distended Integumentary: normal Extremities: no cyanosis, edema Neurologic: normal mental status, non-focal exam, pupils equal and round, CN II- XII normal, motor strength normal and Psychiatric: mood appropriate, affect normal CBC and BMP: 06/14/19 04:54 06/14/19 04:54 ABG, PT/INR, D-dimer: ABG POC ABG pH 7.416 (7.35-7.45) 06/12/19 23:59 POC ABG pCO2 49.9 (35-45) H 06/12/19 23:59 POC ABG pO2 56 (80-105) L 06/12/19 23:59 POC ABG HCO3 32.0 (22-26 mml/L) 06/12/19 23:59 POC ABG Total CO2 34 (23-27mmol/L) 06/12/19 23:59 POC ABG O2 Sat 89 06/12/19 23:59 PT/INR, D-dimer PT 13.5 Sec. (12.2-14.9) 06/14/19 04:54 INR 1.04 (0.87-1.13) 06/14/19 04:54 D-Dimer 472.88 ng/mlDDU (0-234) H 06/12/19 21:27 Abnormal lab findings: Abnormal Labs 06/12/19 06/12/19 06/12/19 21:27 21:27 21:27 WBC [place] % (Auto) 7.9 H Seg Neuts % (Manual) Lymphocytes % (Manual) Seg Neutrophils # Man D-Dimer 472.88 H POC ABG pCO2 POC ABG pO2 Potassium 3.3 L Creatinine 0.6 L Glucose 116 H Urine pH 06/12/19 06/12/19 06/14/19 23:00 23:59 04:54 WBC 15.1 H [place] % (Auto) Seg Neuts % (Manual) 89.0 H Lymphocytes % (Manual) 9.0 L Seg Neutrophils # Man 13.4 H D-Dimer POC ABG pCO2 49.9 H POC ABG pO2 56 L Potassium Creatinine Glucose Urine pH 8.0 H 06/14/19 04:54 WBC [place] % (Auto) Seg Neuts % (Manual) Lymphocytes % (Manual) Seg Neutrophils # Man D-Dimer POC ABG pCO2 POC ABG pO2 Potassium Creatinine 0.6 L Glucose 164 H Urine pH Allied health notes reviewed: nursing
[2019-06-17] MEDS: ENOXAPARIN 40 MG/0.4 ML INJ SUB-Q SCH (10:17)
[2019-06-17] MEDS: NICOTINE 7 MG/24 HR PATCH TD SCH (10:17)
[2019-06-17] MEDS: FAMOTIDINE 20 MG TAB PO SCH (10:17)
[2019-06-17] MEDS: FUROSEMIDE 20 MG TAB PO SCH (10:18)
[2019-06-17] MEDS: BENZONATATE 100 MG CAP PO PRN (14:24)
--- NOTE | 2019-06-17 16:44 | Progress Note ---
Assessment and Plan Assessment and plan: Patient is a 58-year-old woman with known history of COPD, hypertension, CHF, tobacco dependency and ANANDA who presented to the emergency room with complaining of shortness of breath and productive cough x 2 -3 days Acute hypoxic and hypercapnic resp failure-cont steroids, nebs, oxygen, rescue bipap as needed, pulm input appreciated Acute COPD exacerbation: treat with steroid, nebs ANANDA, has cpap at home Tobacco abuse/dependence-Smoking cessation counseling performed for 10 minutes, nicotine patches when necessary LE edema, fluid overload dvt ppx: lovenox History Interval history: Patient was seen and examined. Follow-up on current diagnosis of COPD. No ov ernight events reported to me. Patient denies any chest pain, shortness breath, nausea/vomiting or severe headaches. Imaging, nursing note, chart, labs and old chart reviewed. Discussed with patient. Hospitalist Physical - Physical exam Narrative exam: Gen: WDWN, NAD, Awake, Alert, Orientated HEENT: NCAT, EOMI, PERRL, OP Clear Neck: supple, no adenopathy, no thyromegaly, no JVD CVS/Heart: RRR, normal S1S2, pulses present bilaterally Chest/Lungs: diminished bs bilateral, Symmetrical chest expansion, good air entry bilaterally GI/Abdomen: soft, NTND, good bowel sounds, no guarding or rebound /Bladder: no suprapubic tenderness, no CVA or paraspinal tenderness Extermity/Skin: no c/c/e, no obvious rash MSK: FROM x 4 Neuro: CN 2-12 grossly intact, no new focal deficits Psych: calm - Constitutional Vitals: Temp Pulse Resp BP Pulse Ox 98.0 F 72 20 114/78 96 06/17/19 11:40 06/17/19 14:00 06/17/19 14:00 06/17/19 11:40 06/17/19 11:40 Results - Labs CBC & Chem 7: 06/14/19 04:54 06/14/19 04:54 Labs: Laboratory Last Values WBC 15.1 K/mm3 (4.5-11.0) H 06/14/19 04:54 RBC 4.27 M/mm3 (3.65-5.03) 06/14/19 04:54 Hgb 12.8 gm/dl (10.1-14.3) 06/14/19 04:54 Hct 39.1 % (30.3-42.9) 06/14/19 04:54 MCV 92 fl (79-97) 06/14/19 04:54 MCH 30 pg (28-32) 06/14/19 04:54 MCHC 33 % (30-34) 06/14/19 04:54 RDW 14.6 % (13.2-15.2) 06/14/19 04:54 Plt Count 212 K/mm3 (140-440) 06/14/19 04:54 Lymph % (Auto) 20.2 % (13.4-35.0) 06/12/19 21:27 [place] % (Auto) 7.9 % (0.0-7.3) H 06/12/19 21:27 Eos % (Auto) 1.8 % (0.0-4.3) 06/12/19 21:27 Baso % (Auto) 0.6 % (0.0-1.8) 06/12/19 21:27 Lymph # 1.6 K/mm3 (1.2-5.4) 06/12/19 21:27 [place] # 0.6 K/mm3 (0.0-0.8) 06/12/19 21:27 Eos # 0.1 K/mm3 (0.0-0.4) 06/12/19 21:27 Baso # 0.0 K/mm3 (0.0-0.1) 06/12/19 21:27 Add Manual Diff Complete 06/14/19 04:54 Total Counted 100 06/14/19 04:54 Seg Neutrophils % Clinical Courier 06/14/19 04:54 Seg Neuts % (Manual) 89.0 % (40.0-70.0) H 06/14/19 04:54 Band Neutrophils % 0 % 06/14/19 04:54 Lymphocytes % (Manual) 9.0 % (13.4-35.0) L 06/14/19 04:54 Reactive Lymphs % (Man) 0 % 06/14/19 04:54 Monocytes % (Manual) 2.0 % (0.0-7.3) 06/14/19 04:54 Eosinophils % (Manual) 0 % (0.0-4.3) 06/14/19 04:54 Basophils % (Manual) 0 % (0.0-1.8) 06/14/19 04:54 Metamyelocytes % 0 % 06/14/19 04:54 Myelocytes % 0 % 06/14/19 04:54 Promyelocytes % 0 % 06/14/19 04:54 Blast Cells % 0 % 06/14/19 04:54 Nucleated RBC % Not Reportable 06/14/19 04:54 Seg Neutrophils # 5.4 K/mm3 (1.8-7.7) 06/12/19 21:27 Seg Neutrophils # Man 13.4 K/mm3 (1.8-7.7) H 06/14/19 04:54 Band Neutrophils # 0.0 K/mm3 06/14/19 04:54 Lymphocytes # (Manual) 1.4 K/mm3 (1.2-5.4) 06/14/19 04:54 Abs React Lymphs (Man) 0.0 K/mm3 06/14/19 04:54 Monocytes # (Manual) 0.3 K/mm3 (0.0-0.8) 06/14/19 04:54 Eosinophils # (Manual) 0.0 K/mm3 (0.0-0.4) 06/14/19 04:54 Basophils # (Manual) 0.0 K/mm3 (0.0-0.1) 06/14/19 04:54 Metamyelocytes # 0.0 K/mm3 06/14/19 04:54 Myelocytes # 0.0 K/mm3 06/14/19 04:54 Promyelocytes # 0.0 K/mm3 06/14/19 04:54 Blast Cells # 0.0 K/mm3 06/14/19 04:54 WBC Morphology Not Reportable 06/14/19 04:54 Hypersegmented Neuts Not Reportable 06/14/19 04:54 Hyposegmented Neuts Not Reportable 06/14/19 04:54 Hypogranular Neuts Not Reportable 06/14/19 04:54 Smudge Cells Not Reportable 06/14/19 04:54 Toxic Granulation Not Reportable 06/14/19 04:54 Toxic Vacuolation Not Reportable 06/14/19 04:54 Dohle Bodies Not Reportable 06/14/19 04:54 Pelger-Huet Anomaly Not Reportable 06/14/19 04:54 Daly Rods Not Reportable 06/14/19 04:54 Platelet Estimate Consistent w auto 06/14/19 04:54 Clumped Platelets Not Reportable 06/14/19 04:54 Plt Clumps, EDTA Not Reportable 06/14/19 04:54 Large Platelets Not Reportable 06/14/19 04:54 Giant Platelets Not Reportable 06/14/19 04:54 Platelet Satelliting Not Reportable 06/14/19 04:54 Plt Morphology Comment Not Reportable 06/14/19 04:54 RBC Morphology Not Reportable 06/14/19 04:54 Dimorphic RBCs Not Reportable 06/14/19 04:54 Polychromasia Not Reportable 06/14/19 04:54 Hypochromasia Not Reportable 06/14/19 04:54 Poikilocytosis Not Reportable 06/14/19 04:54 Anisocytosis 1+ 06/14/19 04:54 Microcytosis Not Reportable 06/14/19 04:54 Macrocytosis Rare 06/14/19 04:54 Spherocytes Not Reportable 06/14/19 04:54 Pappenheimer Bodies Not Reportable 06/14/19 04:54 Sickle Cells Not Reportable 06/14/19 04:54 Target Cells Not Reportable 06/14/19 04:54 Tear Drop Cells Not Reportable 06/14/19 04:54 Ovalocytes Not Reportable 06/14/19 04:54 Helmet Cells Not Reportable 06/14/19 04:54 Kc-Zinc Bodies Not Reportable 06/14/19 04:54 [place] Rings Not Reportable 06/14/19 04:54 [place] Cells Not Reportable 06/14/19 04:54 Bite Cells Not Reportable 06/14/19 04:54 Crenated Cell Not Reportable 06/14/19 04:54 Elliptocytes Not Reportable 06/14/19 04:54 Acanthocytes (Spur) Not Reportable 06/14/19 04:54 Rouleaux Not Reportable 06/14/19 04:54 Hemoglobin C Crystals Not Reportable 06/14/19 04:54 Schistocytes Not Reportable 06/14/19 04:54 Malaria parasites Not Reportable 06/14/19 04:54 Jj Bodies Not Reportable 06/14/19 04:54 Hem Pathologist Commnt No 06/14/19 04:54 PT 13.5 Sec. (12.2-14.9) 06/14/19 04:54 INR 1.04 (0.87-1.13) 06/14/19 04:54 APTT 34.3 Sec. (24.2-36.6) 06/12/19 21:27 D-Dimer 472.88 ng/mlDDU (0-234) H 06/12/19 21:27 POC ABG pH 7.416 (7.35-7.45) 06/12/19 23:59 POC ABG pCO2 49.9 (35-45) H 06/12/19 23:59 POC ABG pO2 56 (80-105) L 06/12/19 23:59 POC ABG HCO3 32.0 (22-26 mml/L) 06/12/19 23:59 POC ABG Total CO2 34 (23-27mmol/L) 06/12/19 23:59 POC ABG O2 Sat 89 06/12/19 23:59 POC ABG Base Excess 8 ((-2) - (+3)mmol/L) 06/12/19 23:59 FiO2 21 % 06/12/19 23:59 Sodium 144 mmol/L (137-145) 06/14/19 04:54 Potassium 3.9 mmol/L (3.6-5.0) 06/14/19 04:54 Chloride 99.8 mmol/L (98-107) 06/14/19 04:54 Carbon Dioxide 29 mmol/L (22-30) 06/14/19 04:54 Anion Gap 19 mmol/L 06/14/19 04:54 BUN 9 mg/dL (7-17) 06/14/19 04:54 Creatinine 0.6 mg/dL (0.7-1.2) L 06/14/19 04:54 Estimated GFR > 60 ml/min 06/14/19 04:54 BUN/Creatinine Ratio 15 % 06/14/19 04:54 Glucose 164 mg/dL (65-100) H 06/14/19 04:54 Calcium 8.4 mg/dL (8.4-10.2) 06/14/19 04:54 Total Bilirubin 0.50 mg/dL (0.1-1.2) 06/12/19 21:27 AST 23 units/L (5-40) 06/12/19 21: ALT 32 units/L (7-56) 06/12/19 21: Alkaline Phosphatase 50 units/L (35-129) 06/12/19 21: Troponin T < 0.010 ng/mL (0.00-0.029) 06/13/19 00:09 NT-Pro-B Natriuret Pep 332.1 pg/mL (0-900) 06/12/19 21: Total Protein 7.5 g/dL (6.3-8.2) 06/12/19: Albumin 4.0 g/dL (3.9-5) 06/12/19: Albumin/Globulin Ratio 1.1 % 06/12/19 21: Urine Color Straw (Yellow) 06/12/19 23:00 Urine Turbidity Clear (Clear) 06/12/19 23:00 Urine pH 8.0 (5.0-7.0) H 06/12/19 23:00 Ur Specific [place] 1.009 (1.003-1.030) 06/12/19 23:00 Urine Protein <15 mg/dl mg/dL (Negative) 06/12/19 23:00 Urine Glucose (UA) Neg mg/dL (Negative) 06/12/19 23:00 Urine Ketones Neg mg/dL (Negative) 06/12/19 23:00 Urine Blood Neg (Negative) 06/12/19 23:00 Urine Nitrite Neg (Negative) 06/12/19 23:00 Urine Bilirubin Neg (Negative) 06/12/19 23:00 Urine Urobilinogen < 2.0 mg/dL (<2.0) 06/12/19 23:00 Ur Leukocyte Esterase Neg (Negative) 06/12/19 23:00 Urine WBC (Auto) 2.0 /HPF (0.0-6.0) 06/12/19 23:00 Urine RBC (Auto) 1.0 /HPF (0.0-6.0) 06/12/19 23:00 U Epithel Cells (Auto) 4.0 /HPF (0-13.0) 06/12/19 23:00 Urine Bacteria (Auto) 1+ /HPF (Negative) 06/12/19 23:00 Urine Mucus Few /HPF 06/12/19 23:00 Active Medications - Current Medications Current Medications: Generic Name Dose Route Start Last Admin Trade Name Freq PRN Reason Stop Dose Admin Acetaminophen 650 mg 06/13/19 03:19 Tylenol PO Q4H PRN Pain MILD(1-3)/Fever >100.5/FISHER Albuterol 2.5 mg 06/15/19 19:37 Proventil IH Q4HRT PRN Shortness Of Breath Albuterol/Ipratropium 1 ampul 06/13/19 08:00 06/17/19 14:00 Duoneb *Not For Prn Use* IH 1 ampul Q6HRT DANIELLE Administration Arformoterol Tartrate 15 mcg 06/16/19 20:00 06/17/19 08:06 Brovana Nebu IH 15 mcg Q12HRT DANIELLE Administration Benzonatate 100 mg 06/14/19 17:09 06/17/19 14:24 Tessalon Perles PO 100 mg Q8H PRN Administration Cough Budesonide 0.25 mg 06/16/19 20:00 06/17/19 08:06 Pulmicort IH 0.25 mg Q12HRT DANIELLE Administration Enoxaparin Sodium 40 mg 06/14/19 10:00 06/17/19 10:17 Enoxaparin SUB-Q 40 mg QDAY DANIELLE Administration Famotidine 20 mg 06/14/19 10:00 06/17/19 10:17 Pepcid PO 20 mg QDAY DANIELLE Administration Furosemide 20 mg 06/17/19 10:00 06/17/19 10:18 Lasix PO 20 mg QDAY DANIELLE Administration Guaifenesin 200 mg 06/14/19 01:55 06/17/19 05:32 Robitussin PO 200 mg Q6H PRN Administration Cough Levofloxacin/Dextrose 750 mg in 150 mls @ 100 mls/hr 06/13/19 10:00 06/17/19 10:18 Levaquin 750mg/150ml IV 100 mls/hr Q24HR DANIELLE Administration Protocol Magnesium Hydroxide 30 ml 06/13/19 03:19 Milk Of Magnesia PO Q4H PRN Constipation Methylprednisolone Sodium Succinate 40 mg 06/13/19 06:00 06/17/19 11:52 Solu-Medrol IV 40 mg Q6HR DANIELLE Administration Nicotine 7 mg 06/14/19 18:00 06/17/19 10:17 Habitrol TD 7 mg QDAY DANIELLE Administration Ondansetron HCl 4 mg 06/13/19 03:19 Zofran IV Q8H PRN Nausea And Vomiting Sodium Chloride 10 ml 06/13/19 10:00 06/17/19 10:18 Sodium Chloride Flush Syringe 10 Ml IV 10 ml BID DANIELLE Administration Sodium Chloride 10 ml 06/13/19 03:19 06/14/19 05:31 Sodium Chloride Flush Syringe 10 Ml IV 10 ml PRN PRN Administration LINE FLUSH
[2019-06-18] MEDS: guaiFENesin 100 MG/5 ML ORAL LIQD PO PRN (02:51)
[2019-06-18] MEDS: ALBUTEROL 2.5 MG/3 ML NEBU IH PRN ×2 (03:00→10:38)
[2019-06-18] MEDS: BUDESONIDE 0.25 MG/2 ML NEBU IH SCH ×2 (10:38→21:11)
[2019-06-18] MEDS: ARFORMOTEROL 15 MCG/2 ML NEBU IH SCH ×2 (10:39→21:11)
[2019-06-18] MEDS: IPRATROPIUM/ALBUTEROL SULFATE 3 ML AMPUL.NEB IH SCH ×3 (10:39→21:11)
[2019-06-18] MEDS: FUROSEMIDE 20 MG TAB PO SCH (11:10)
[2019-06-18] MEDS: ENOXAPARIN 40 MG/0.4 ML INJ SUB-Q SCH (11:10)
[2019-06-18] MEDS: predniSONE 10 MG TAB PO SCH (11:11)
[2019-06-18] MEDS: FAMOTIDINE 20 MG TAB PO SCH (11:11)
[2019-06-18] MEDS: NICOTINE 7 MG/24 HR PATCH TD SCH (11:12)
[2019-06-18] MEDS: BENZONATATE 100 MG CAP PO PRN (11:15)
[2019-06-18] MEDS ORDERED: BENZONATATE 100 MG CAP PO SCH (12:00)
--- NOTE | 2019-06-18 12:50 | Progress Note ---
Assessment and Plan Acute COPD exacerbation Acute hypoxemic and hypercapnic Respiratory Failure Tobacco abuse Morbid obesity with BMI of 40.0-44.9, adult Obstructive sleep apnea - continue supplemental oxygen as needed to keep O2 sat's > 90% - continue bronchodilators with pulmonary hygiene per RT - continue systemic steroids with taper - Add inhaled corticosteroids - continue CPAP scheduled qhs / while asleep - weight loss counseled - tobacco abstinence strongly counseled - continue nicotine replacement therapy - complete empiric CAP AB's therapy with Levaquin - PT/OT as tolerated - mobility protocols for pressure ulcer prophylaxis - GI & VTE prophylaxis - Flu & pneumovax addressed per protocol - continue other care per attending / other consultants ... re-evaluate in am & prn Subjective Date of service: 06/18/19 Principal diagnosis: AE-COPD; Ac hypoxemic and hypercapnic Resp Failure; Tobacco abuse; ANANDA Interval history: Patient is seen today for: AE-COPD; Acute hypoxemic and hypercapnic Resp Failure; Tobacco abuse; Morbid obesity with BMI of 40.0-44.9, adult; Obstructive sleep apnea Seen and examined at bedside; 24hour events reviewed; nursing and respiratory care staff consulted; no adverse overnight events reported to me; resting peacefully in bed; denies acute chest pains or palpitations; No N/V/F/C Objective Vital Signs - 12hr 06/18/19 06/18/19 06/18/19 03:22 08:00 10:00 Temperature Pulse Rate Pulse Rate [ 87 86 Bilateral] Respiratory Rate Respiratory 20 20 Rate [Bilateral ] Blood Pressure O2 Sat by Pulse 96 Oximetry 06/18/19 11:31 Temperature 98.0 F Pulse Rate 69 Pulse Rate [ Bilateral] Respiratory 18 Rate Respiratory Rate [Bilateral ] Blood Pressure 109/69 O2 Sat by Pulse 94 Oximetry Constitutional: no acute distress, alert Eyes: non-icteric ENT: oropharynx moist Neck: supple, no JVD Effort: mildly labored Ascultation: Bilateral: clear, diminished breath sounds, other (Prolonged expiratory phase.) Percussion: Bilateral: not dull Cardiovascular: regular rate and rhythm, other (S1,S2, no murmurs, gallops or rubs) Gastrointestinal: normoactive bowel sounds, soft, non-tender, non-distended Integumentary: normal Extremities: no cyanosis, pulses normal, no ischemia or petechiae, edema Neurologic: normal mental status, non-focal exam, pupils equal and round, CN II- XII normal, motor strength normal and Psychiatric: mood appropriate, affect normal CBC and BMP: 06/19/19 06:38 06/19/19 06:38 ABG, PT/INR, D-dimer: ABG POC ABG pH 7.416 (7.35-7.45) 06/12/19 23:59 POC ABG pCO2 49.9 (35-45) H 06/12/19 23:59 POC ABG pO2 56 (80-105) L 06/12/19 23:59 POC ABG HCO3 32.0 (22-26 mml/L) 06/12/19 23:59 POC ABG Total CO2 34 (23-27mmol/L) 06/12/19 23:59 POC ABG O2 Sat 89 06/12/19 23:59 PT/INR, D-dimer PT 13.5 Sec. (12.2-14.9) 06/14/19 04:54 INR 1.04 (0.87-1.13) 06/14/19 04:54 D-Dimer 472.88 ng/mlDDU (0-234) H 06/12/19 21:27 Abnormal lab findings: Abnormal Labs 06/12/19 06/12/19 06/12/19 21:27 21:27 21:27 WBC [place] % (Auto) 7.9 H Seg Neuts % (Manual) Lymphocytes % (Manual) Seg Neutrophils # Man D-Dimer 472.88 H POC ABG pCO2 POC ABG pO2 Potassium 3.3 L Creatinine 0.6 L Glucose 116 H Urine pH 06/12/19 06/12/19 06/14/19 23:00 23:59 04:54 WBC 15.1 H [place] % (Auto) Seg Neuts % (Manual) 89.0 H Lymphocytes % (Manual) 9.0 L Seg Neutrophils # Man 13.4 H D-Dimer POC ABG pCO2 49.9 H POC ABG pO2 56 L Potassium Creatinine Glucose Urine pH 8.0 H 06/14/19 04:54 WBC [place] % (Auto) Seg Neuts % (Manual) Lymphocytes % (Manual) Seg Neutrophils # Man D-Dimer POC ABG pCO2 POC ABG pO2 Potassium Creatinine 0.6 L Glucose 164 H Urine pH Chest x-ray: image reviewed Allied health notes reviewed: nursing
[2019-06-18] MEDS: BENZONATATE 100 MG CAP PO SCH ×2 (13:10→21:48)
--- NOTE | 2019-06-18 18:33 | Progress Note ---
Assessment and Plan Assessment and plan: Patient is a 58-year-old woman with known history of COPD, hypertension, CHF, tobacco dependency and ANANDA who presented to the emergency room with complaining of shortness of breath and productive cough x 2 -3 days Acute hypoxic and hypercapnic resp failure-cont steroids, nebs, oxygen, rescue bipap as needed, pulm input appreciated Acute COPD exacerbation: treat with steroid, nebs ANANDA, has cpap at home Tobacco abuse/dependence-Smoking cessation counseling performed for 10 minutes, nicotine patches when necessary dvt ppx: lovenox History Interval history: Patient was seen and examined. Follow-up on current diagnosis of COPD. No ov ernight events reported to me. Patient denies any chest pain, shortness breath, nausea/vomiting or severe headaches. Imaging, nursing note, chart, labs and old chart reviewed. Discussed with patient. Hospitalist Physical - Physical exam Narrative exam: Gen: WDWN, NAD, Awake, Alert, Orientated HEENT: NCAT, EOMI, PERRL, OP Clear Neck: supple, no adenopathy, no thyromegaly, no JVD CVS/Heart: RRR, normal S1S2, pulses present bilaterally Chest/Lungs: diminished bs bilateral, Symmetrical chest expansion, good air entry bilaterally GI/Abdomen: soft, NTND, good bowel sounds, no guarding or rebound /Bladder: no suprapubic tenderness, no CVA or paraspinal tenderness Extermity/Skin: no c/c/e, no obvious rash MSK: FROM x 4 Neuro: CN 2-12 grossly intact, no new focal deficits Psych: calm - Constitutional Vitals: Temp Pulse Resp BP Pulse Ox 97.8 F 74 20 109/66 93 06/18/19 16:41 06/18/19 16:41 06/18/19 14:00 06/18/19 16:41 06/18/19 16:41 Results - Labs CBC & Chem 7: 06/14/19 04:54 06/14/19 04:54 Labs: Laboratory Last Values WBC 15.1 K/mm3 (4.5-11.0) H 06/14/19 04:54 RBC 4.27 M/mm3 (3.65-5.03) 06/14/19 04:54 Hgb 12.8 gm/dl (10.1-14.3) 06/14/19 04:54 Hct 39.1 % (30.3-42.9) 06/14/19 04:54 MCV 92 fl (79-97) 06/14/19 04:54 MCH 30 pg (28-32) 06/14/19 04:54 MCHC 33 % (30-34) 06/14/19 04:54 RDW 14.6 % (13.2-15.2) 06/14/19 04:54 Plt Count 212 K/mm3 (140-440) 06/14/19 04:54 Lymph % (Auto) 20.2 % (13.4-35.0) 06/12/19 21:27 [place] % (Auto) 7.9 % (0.0-7.3) H 06/12/19 21:27 Eos % (Auto) 1.8 % (0.0-4.3) 06/12/19 21:27 Baso % (Auto) 0.6 % (0.0-1.8) 06/12/19 21:27 Lymph # 1.6 K/mm3 (1.2-5.4) 06/12/19 21:27 [place] # 0.6 K/mm3 (0.0-0.8) 06/12/19 21:27 Eos # 0.1 K/mm3 (0.0-0.4) 06/12/19 21:27 Baso # 0.0 K/mm3 (0.0-0.1) 06/12/19 21:27 Add Manual Diff Complete 06/14/19 04:54 Total Counted 100 06/14/19 04:54 Seg Neutrophils % Title Coordinator 06/14/19 04:54 Seg Neuts % (Manual) 89.0 % (40.0-70.0) H 06/14/19 04:54 Band Neutrophils % 0 % 06/14/19 04:54 Lymphocytes % (Manual) 9.0 % (13.4-35.0) L 06/14/19 04:54 Reactive Lymphs % (Man) 0 % 06/14/19 04:54 Monocytes % (Manual) 2.0 % (0.0-7.3) 06/14/19 04:54 Eosinophils % (Manual) 0 % (0.0-4.3) 06/14/19 04:54 Basophils % (Manual) 0 % (0.0-1.8) 06/14/19 04:54 Metamyelocytes % 0 % 06/14/19 04:54 Myelocytes % 0 % 06/14/19 04:54 Promyelocytes % 0 % 06/14/19 04:54 Blast Cells % 0 % 06/14/19 04:54 Nucleated RBC % Not Reportable 06/14/19 04:54 Seg Neutrophils # 5.4 K/mm3 (1.8-7.7) 06/12/19 21:27 Seg Neutrophils # Man 13.4 K/mm3 (1.8-7.7) H 06/14/19 04:54 Band Neutrophils # 0.0 K/mm3 06/14/19 04:54 Lymphocytes # (Manual) 1.4 K/mm3 (1.2-5.4) 06/14/19 04:54 Abs React Lymphs (Man) 0.0 K/mm3 06/14/19 04:54 Monocytes # (Manual) 0.3 K/mm3 (0.0-0.8) 06/14/19 04:54 Eosinophils # (Manual) 0.0 K/mm3 (0.0-0.4) 06/14/19 04:54 Basophils # (Manual) 0.0 K/mm3 (0.0-0.1) 06/14/19 04:54 Metamyelocytes # 0.0 K/mm3 06/14/19 04:54 Myelocytes # 0.0 K/mm3 06/14/19 04:54 Promyelocytes # 0.0 K/mm3 06/14/19 04:54 Blast Cells # 0.0 K/mm3 06/14/19 04:54 WBC Morphology Not Reportable 06/14/19 04:54 Hypersegmented Neuts Not Reportable 06/14/19 04:54 Hyposegmented Neuts Not Reportable 06/14/19 04:54 Hypogranular Neuts Not Reportable 06/14/19 04:54 Smudge Cells Not Reportable 06/14/19 04:54 Toxic Granulation Not Reportable 06/14/19 04:54 Toxic Vacuolation Not Reportable 06/14/19 04:54 Dohle Bodies Not Reportable 06/14/19 04:54 Pelger-Huet Anomaly Not Reportable 06/14/19 04:54 Daly Rods Not Reportable 06/14/19 04:54 Platelet Estimate Consistent w auto 06/14/19 04:54 Clumped Platelets Not Reportable 06/14/19 04:54 Plt Clumps, EDTA Not Reportable 06/14/19 04:54 Large Platelets Not Reportable 06/14/19 04:54 Giant Platelets Not Reportable 06/14/19 04:54 Platelet Satelliting Not Reportable 06/14/19 04:54 Plt Morphology Comment Not Reportable 06/14/19 04:54 RBC Morphology Not Reportable 06/14/19 04:54 Dimorphic RBCs Not Reportable 06/14/19 04:54 Polychromasia Not Reportable 06/14/19 04:54 Hypochromasia Not Reportable 06/14/19 04:54 Poikilocytosis Not Reportable 06/14/19 04:54 Anisocytosis 1+ 06/14/19 04:54 Microcytosis Not Reportable 06/14/19 04:54 Macrocytosis Rare 06/14/19 04:54 Spherocytes Not Reportable 06/14/19 04:54 Pappenheimer Bodies Not Reportable 06/14/19 04:54 Sickle Cells Not Reportable 06/14/19 04:54 Target Cells Not Reportable 06/14/19 04:54 Tear Drop Cells Not Reportable 06/14/19 04:54 Ovalocytes Not Reportable 06/14/19 04:54 Helmet Cells Not Reportable 06/14/19 04:54 [place]c-[place] Bodies Not Reportable 06/14/19 04:54 [place] Rings Not Reportable 06/14/19 04:54 [place] [employer] Cells Not Reportable 06/14/19 04:54 Bite Cells Not Reportable 06/14/19 04:54 Crenated Cell Not Reportable 06/14/19 04:54 Elliptocytes Not Reportable 06/14/19 04:54 Acanthocytes (Spur) Not Reportable 06/14/19 04:54 Rouleaux Not Reportable 06/14/19 04:54 Hemoglobin C Crystals Not Reportable 06/14/19 04:54 Schistocytes Not Reportable 06/14/19 04:54 Malaria parasites Not Reportable 06/14/19 04:54 Jj Bodies Not Reportable 06/14/19 04:54 Hem Pathologist Commnt No 06/14/19 04:54 PT 13.5 Sec. (12.2-14.9) 06/14/19 04:54 INR 1.04 (0.87-1.13) 06/14/19 04:54 APTT 34.3 Sec. (24.2-36.6) 06/12/19 21:27 D-Dimer 472.88 ng/mlDDU (0-234) H 06/12/19 21:27 POC ABG pH 7.416 (7.35-7.45) 06/12/19 23:59 POC ABG pCO2 49.9 (35-45) H 06/12/19 23:59 POC ABG pO2 56 (80-105) L 06/12/19 23:59 POC ABG HCO3 32.0 (22-26 mml/L) 06/12/19 23:59 POC ABG Total CO2 34 (23-27mmol/L) 06/12/19 23:59 POC ABG O2 Sat 89 06/12/19 23:59 POC ABG Base Excess 8 ((-2) - (+3)mmol/L) 06/12/19 23:59 FiO2 21 % 06/12/19 23:59 Sodium 144 mmol/L (137-145) 06/14/19 04:54 Potassium 3.9 mmol/L (3.6-5.0) 06/14/19 04:54 Chloride 99.8 mmol/L (98-107) 06/14/19 04:54 Carbon Dioxide 29 mmol/L (22-30) 06/14/19 04:54 Anion Gap 19 mmol/L 06/14/19 04:54 BUN 9 mg/dL (7-17) 06/14/19 04:54 Creatinine 0.6 mg/dL (0.7-1.2) L 06/14/19 04:54 Estimated GFR > 60 ml/min 06/14/19 04:54 BUN/Creatinine Ratio 15 % 06/14/19 04:54 Glucose 164 mg/dL (65-100) H 06/14/19 04:54 Calcium 8.4 mg/dL (8.4-10.2) 06/14/19 04:54 Total Bilirubin 0.50 mg/dL (0.1-1.2) 06/12/19 21:27 AST 23 units/L (5-40) 06/12/19 21: ALT 32 units/L (7-56) 06/12/19 21: Alkaline Phosphatase 50 units/L (35-129) 06/12/19 21: Troponin T < 0.010 ng/mL (0.00-0.029) 06/13/19 00:09 NT-Pro-B Natriuret Pep 332.1 pg/mL (0-900) 06/12/19: Total Protein 7.5 g/dL (6.3-8.2) 06/12/19: Albumin 4.0 g/dL (3.9-5) 06/12/19: Albumin/Globulin Ratio 1.1 % 06/12/19: Urine Color Straw (Yellow) 06/12/19 23:00 Urine Turbidity Clear (Clear) 06/12/19 23:00 Urine pH 8.0 (5.0-7.0) H 06/12/19 23:00 Ur Specific [place] 1.009 (1.003-1.030) 06/12/19 23:00 Urine Protein <15 mg/dl mg/dL (Negative) 06/12/19 23:00 Urine Glucose (UA) Neg mg/dL (Negative) 06/12/19 23:00 Urine Ketones Neg mg/dL (Negative) 06/12/19 23:00 Urine Blood Neg (Negative) 06/12/19 23:00 Urine Nitrite Neg (Negative) 06/12/19 23:00 Urine Bilirubin Neg (Negative) 06/12/19 23:00 Urine Urobilinogen < 2.0 mg/dL (<2.0) 06/12/19 23:00 Ur Leukocyte Esterase Neg (Negative) 06/12/19 23:00 Urine WBC (Auto) 2.0 /HPF (0.0-6.0) 06/12/19 23:00 Urine RBC (Auto) 1.0 /HPF (0.0-6.0) 06/12/19 23:00 U Epithel Cells (Auto) 4.0 /HPF (0-13.0) 06/12/19 23:00 Urine Bacteria (Auto) 1+ /HPF (Negative) 06/12/19 23:00 Urine Mucus Few /HPF 06/12/19 23:00 Active Medications - Current Medications Current Medications: Generic Name Dose Route Start Last Admin Trade Name Freq PRN Reason Stop Dose Admin Acetaminophen 650 mg 06/13/19 03:19 Tylenol PO Q4H PRN Pain MILD(1-3)/Fever >100.5/FISHER Albuterol 2.5 mg 06/15/19 19:37 06/18/19 10:38 Proventil IH 2.5 mg Q4HRT PRN Administration Shortness Of Breath Albuterol/Ipratropium 1 ampul 06/18/19 08:00 06/18/19 15:10 Duoneb *Not For Prn Use* IH 1 ampul TIDRT DANIELLE Administration Arformoterol Tartrate 15 mcg 06/16/19 20:00 06/18/19 10:39 Brovana Nebu IH 15 mcg Q12HRT DANIELLE Administration Benzonatate 100 mg 06/18/19 12:00 06/18/19 13:10 Tessalon Perles PO Not Given Q8HR DANIELLE Budesonide 0.25 mg 06/16/19 20:00 06/18/19 10:38 Pulmicort IH 0.25 mg Q12HRT DANIELLE Administration Enoxaparin Sodium 40 mg 06/14/19 10:00 06/18/19 11:10 Enoxaparin SUB-Q 40 mg QDAY DANIELLE Administration Famotidine 20 mg 06/14/19 10:00 06/18/19 11:11 Pepcid PO 20 mg QDAY DANIELLE Administration Furosemide 20 mg 06/17/19 10:00 06/18/19 11:10 Lasix PO 20 mg QDAY DANIELLE Administration Guaifenesin 200 mg 06/14/19 01:55 06/18/19 02:51 Robitussin PO 200 mg Q6H PRN Administration Cough Levofloxacin/Dextrose 750 mg in 150 mls @ 100 mls/hr 06/13/19 10:00 06/18/19 11:09 Levaquin 750mg/150ml IV 100 mls/hr Q24HR DANIELLE Administration Protocol Magnesium Hydroxide 30 ml 06/13/19 03:19 Milk Of Magnesia PO Q4H PRN Constipation Nicotine 7 mg 06/14/19 18:00 06/18/19 11:12 Habitrol TD 7 mg QDAY DANIELLE Administration Ondansetron HCl 4 mg 06/13/19 03:19 Zofran IV Q8H PRN Nausea And Vomiting Prednisone 30 mg 06/18/19 10:00 06/18/19 11:11 Deltasone PO 30 mg QDAY DANIELLE Administration Sodium Chloride 10 ml 06/13/19 10:00 06/18/19 11:12 Sodium Chloride Flush Syringe 10 Ml IV 10 ml BID DANIELLE Administration Sodium Chloride 10 ml 06/13/19 03:19 06/14/19 05:31 Sodium Chloride Flush Syringe 10 Ml IV 10 ml PRN PRN Administration LINE FLUSH
[2019-06-19] MEDS: BENZONATATE 100 MG CAP PO SCH ×3 (05:26→21:32)
[2019-06-19] MEDS: guaiFENesin 100 MG/5 ML ORAL LIQD PO PRN (05:26)
[2019-06-19 07:28] LABS: Hematocrit 43.7 % (30.3-42.9); Hemoglobin 14.3 gm/dl (10.1-14.3); Mean Corpuscular HGB Conc 33 % (30-34); Mean Corpuscular Volume 91 fl (79-97); Platelet Count 231 K/mm3 (140-440); Red Blood Count 4.84 M/mm3 (3.65-5.03); Red Cell Distribution Width 14.6 % (13.2-15.2)
--- NOTE | 2019-06-19 07:37 | Progress Note ---
Assessment and Plan Acute hypoxic-hypercapnic respiratory failure on oxygen at 2L/min -AE-COPD -Tobacco use disorder/Nicotine dependence -Morbid obesity BMI 40.5 Continue with current care and all current therapies Steroid taper-stop IV solumedrol, start oral prednisone in the morning Stop IV levofloxacin and change to oral Levofloxacin, complete 5 days of antibiotics therapy for severe AE-COPD Needs home oxygen evaluation prior to discharge Will need pulmonary outpatient follow up post discharge On discharge will need LABA/LAMA and short steroid taper Discharge planning, discussed with the patient- re smoking cessation and adherence with medical therapies She does state that she has used her sister's nebulizer and inhalers in the past. -Continue with supplemental oxygen to keep O2 sats 88-90% -Bronchodilators- JALIL/JEROMY, ICS -Steroids with glycemic control, target blood glucose 180mg/dL -VTE prophylaxis -Stress ulcer prophylaxis -Airway clearance -Weight loss and lifestyle modifications Subjective Date of service: 06/19/19 Principal diagnosis: AE-COPD; Ac hypoxemic and hypercapnic Resp Failure; Tobacco abuse; ANANDA Interval history: Patient is seen today for: acute hypoxic-hypercapnic respiratory failure; AE- COPD; Tobacco use disorder, nicotine dependence Seen and examined at bedside; 24hour events reviewed; nursing and respiratory care staff consulted; no adverse overnight events reported to me; Vitals, labs, medications, chart are reviewed. Feels much better, with a dry cough, no nausea or vomiting, no diarrhea. Daughter visiting. Objective Vital Signs - 12hr 06/18/19 06/18/19 06/18/19 21:10 21:36 22:59 Temperature 97.4 F L Pulse Rate Pulse Rate [ 78 Bilateral] Respiratory 20 Rate Respiratory 20 Rate [Bilateral ] Blood Pressure 113/64 Blood Pressure [Left] O2 Sat by Pulse 99 Oximetry 06/18/19 06/19/19 23:00 05:15 Temperature 97.4 F L 98.0 F Pulse Rate 69 66 Pulse Rate [ Bilateral] Respiratory 20 20 Rate Respiratory Rate [Bilateral ] Blood Pressure 129/78 Blood Pressure 113/64 [Left] O2 Sat by Pulse 96 96 Oximetry Constitutional: no acute distress, alert, other (obese) Eyes: non-icteric ENT: oropharynx moist Neck: supple, no JVD Effort: mildly labored Ascultation: Bilateral: clear, diminished breath sounds, other (Prolonged expiratory phase.) Cardiovascular: regular rate and rhythm, other (S1,S2, no murmurs, gallops or rubs) Gastrointestinal: normoactive bowel sounds, soft, non-tender, non-distended Integumentary: normal Extremities: no cyanosis, edema Neurologic: normal mental status, non-focal exam, pupils equal and round, CN II- XII normal, motor strength normal and Psychiatric: mood appropriate, affect normal CBC and BMP: 06/19/19 06:38 06/19/19 06:38 ABG, PT/INR, D-dimer: ABG POC ABG pH 7.416 (7.35-7.45) 06/12/19 23:59 POC ABG pCO2 49.9 (35-45) H 06/12/19 23:59 POC ABG pO2 56 (80-105) L 06/12/19 23:59 POC ABG HCO3 32.0 (22-26 mml/L) 06/12/19 23:59 POC ABG Total CO2 34 (23-27mmol/L) 06/12/19 23:59 POC ABG O2 Sat 89 06/12/19 23:59 PT/INR, D-dimer PT 13.5 Sec. (12.2-14.9) 06/14/19 04:54 INR 1.04 (0.87-1.13) 06/14/19 04:54 D-Dimer 472.88 ng/mlDDU (0-234) H 06/12/19 21:27 Abnormal lab findings: Abnormal Labs 06/12/19 06/12/19 06/12/19 21:27 21:27 21:27 WBC Hct [place] % (Auto) 7.9 H Seg Neuts % (Manual) Lymphocytes % (Manual) Seg Neutrophils # Man D-Dimer 472.88 H POC ABG pCO2 POC ABG pO2 Potassium 3.3 L Creatinine 0.6 L Glucose 116 H Urine pH 06/12/19 06/12/19 06/14/19 23:00 23:59 04:54 WBC 15.1 H Hct [place] % (Auto) Seg Neuts % (Manual) 89.0 H Lymphocytes % (Manual) 9.0 L Seg Neutrophils # Man 13.4 H D-Dimer POC ABG pCO2 49.9 H POC ABG pO2 56 L Potassium Creatinine Glucose Urine pH 8.0 H 06/14/19 06/19/19 04:54 06:38 WBC 11.4 H Hct 43.7 H [place] % (Auto) Seg Neuts % (Manual) Lymphocytes % (Manual) Seg Neutrophils # Man D-Dimer POC ABG pCO2 POC ABG pO2 Potassium Creatinine 0.6 L Glucose 164 H Urine pH Allied health notes reviewed: nursing
[2019-06-19 07:56] LABS: BUN/Creatinine Ratio 21; Blood Urea Nitrogen 15 mg/dL (7-17); Calcium 7.7 mg/dL (8.4-10.2); Hemolysis Index 5
[2019-06-19] MEDS: ARFORMOTEROL 15 MCG/2 ML NEBU IH SCH ×2 (11:11→20:48)
[2019-06-19] MEDS: IPRATROPIUM/ALBUTEROL SULFATE 3 ML AMPUL.NEB IH SCH ×3 (11:12→20:48)
[2019-06-19] MEDS: ENOXAPARIN 40 MG/0.4 ML INJ SUB-Q SCH (12:04)
[2019-06-19] MEDS: FAMOTIDINE 20 MG TAB PO SCH (12:05)
[2019-06-19] MEDS: FUROSEMIDE 20 MG TAB PO SCH (12:05)
[2019-06-19] MEDS: predniSONE 10 MG TAB PO SCH (12:05)
[2019-06-19] MEDS: NICOTINE 7 MG/24 HR PATCH TD SCH (12:08)
--- NOTE | 2019-06-19 14:23 | Progress Note ---
Assessment and Plan Assessment and plan: Patient is a 58-year-old woman with known history of COPD, hypertension, CHF, tobacco dependency and ANANDA who presented to the emergency room with complaining of shortness of breath and productive cough x 2 -3 days Acute hypoxic and hypercapnic resp failure-cont steroids, nebs, oxygen, rescue bipap as needed, pulm input appreciated Acute COPD exacerbation: treat with steroid, nebs ANANDA, has cpap at home Tobacco abuse/dependence-Smoking cessation counseling performed for 10 minutes, nicotine patches when necessary dvt ppx: lovenox History Interval history: Patient was seen and examined. Follow-up on current diagnosis of COPD. No ov ernight events reported to me. Patient denies any chest pain, shortness breath, nausea/vomiting or severe headaches. Imaging, nursing note, chart, labs and old chart reviewed. Discussed with patient. Hospitalist Physical - Physical exam Narrative exam: Gen: WDWN, NAD, Awake, Alert, Orientated HEENT: NCAT, EOMI, PERRL, OP Clear Neck: supple, no adenopathy, no thyromegaly, no JVD CVS/Heart: RRR, normal S1S2, pulses present bilaterally Chest/Lungs: diminished bs bilateral, Symmetrical chest expansion, good air entry bilaterally GI/Abdomen: soft, NTND, good bowel sounds, no guarding or rebound /Bladder: no suprapubic tenderness, no CVA or paraspinal tenderness Extermity/Skin: no c/c/e, no obvious rash MSK: FROM x 4 Neuro: CN 2-12 grossly intact, no new focal deficits Psych: calm - Constitutional Vitals: Temp Pulse Resp BP Pulse Ox 98.4 F 78 20 141/80 95 06/19/19 11:46 06/19/19 13:31 06/19/19 13:31 06/19/19 11:46 06/19/19 11:46 Results - Labs CBC & Chem 7: 06/19/19 06:38 06/19/19 06:38 Labs: Laboratory Last Values WBC 11.4 K/mm3 (4.5-11.0) H 06/19/19 06:38 RBC 4.84 M/mm3 (3.65-5.03) 06/19/19 06:38 Hgb 14.3 gm/dl (10.1-14.3) 06/19/19 06:38 Hct 43.7 % (30.3-42.9) H 06/19/19 06:38 MCV 91 fl (79-97) 06/19/19 06:38 MCH 30 pg (28-32) 06/19/19 06:38 MCHC 33 % (30-34) 06/19/19 06:38 RDW 14.6 % (13.2-15.2) 06/19/19 06:38 Plt Count 231 K/mm3 (140-440) 06/19/19 06:38 Lymph % (Auto) 20.2 % (13.4-35.0) 06/12/19 21:27 [place] % (Auto) 7.9 % (0.0-7.3) H 06/12/19 21:27 Eos % (Auto) 1.8 % (0.0-4.3) 06/12/19 21:27 Baso % (Auto) 0.6 % (0.0-1.8) 06/12/19 21:27 Lymph # 1.6 K/mm3 (1.2-5.4) 06/12/19 21:27 [place] # 0.6 K/mm3 (0.0-0.8) 06/12/19 21:27 Eos # 0.1 K/mm3 (0.0-0.4) 06/12/19 21:27 Baso # 0.0 K/mm3 (0.0-0.1) 06/12/19 21:27 Add Manual Diff Complete 06/14/19 04:54 Total Counted 100 06/14/19 04:54 Seg Neutrophils % Recreation Director 06/14/19 04:54 Seg Neuts % (Manual) 89.0 % (40.0-70.0) H 06/14/19 04:54 Band Neutrophils % 0 % 06/14/19 04:54 Lymphocytes % (Manual) 9.0 % (13.4-35.0) L 06/14/19 04:54 Reactive Lymphs % (Man) 0 % 06/14/19 04:54 Monocytes % (Manual) 2.0 % (0.0-7.3) 06/14/19 04:54 Eosinophils % (Manual) 0 % (0.0-4.3) 06/14/19 04:54 Basophils % (Manual) 0 % (0.0-1.8) 06/14/19 04:54 Metamyelocytes % 0 % 06/14/19 04:54 Myelocytes % 0 % 06/14/19 04:54 Promyelocytes % 0 % 06/14/19 04:54 Blast Cells % 0 % 06/14/19 04:54 Nucleated RBC % Not Reportable 06/14/19 04:54 Seg Neutrophils # 5.4 K/mm3 (1.8-7.7) 06/12/19 21:27 Seg Neutrophils # Man 13.4 K/mm3 (1.8-7.7) H 06/14/19 04:54 Band Neutrophils # 0.0 K/mm3 06/14/19 04:54 Lymphocytes # (Manual) 1.4 K/mm3 (1.2-5.4) 06/14/19 04:54 Abs React Lymphs (Man) 0.0 K/mm3 06/14/19 04:54 Monocytes # (Manual) 0.3 K/mm3 (0.0-0.8) 06/14/19 04:54 Eosinophils # (Manual) 0.0 K/mm3 (0.0-0.4) 06/14/19 04:54 Basophils # (Manual) 0.0 K/mm3 (0.0-0.1) 06/14/19 04:54 Metamyelocytes # 0.0 K/mm3 06/14/19 04:54 Myelocytes # 0.0 K/mm3 06/14/19 04:54 Promyelocytes # 0.0 K/mm3 06/14/19 04:54 Blast Cells # 0.0 K/mm3 06/14/19 04:54 WBC Morphology Not Reportable 06/14/19 04:54 Hypersegmented Neuts Not Reportable 06/14/19 04:54 Hyposegmented Neuts Not Reportable 06/14/19 04:54 Hypogranular Neuts Not Reportable 06/14/19 04:54 Smudge Cells Not Reportable 06/14/19 04:54 Toxic Granulation Not Reportable 06/14/19 04:54 Toxic Vacuolation Not Reportable 06/14/19 04:54 Dohle Bodies Not Reportable 06/14/19 04:54 Pelger-Huet Anomaly Not Reportable 06/14/19 04:54 Daly Rods Not Reportable 06/14/19 04:54 Platelet Estimate Consistent w auto 06/14/19 04:54 Clumped Platelets Not Reportable 06/14/19 04:54 Plt Clumps, EDTA Not Reportable 06/14/19 04:54 Large Platelets Not Reportable 06/14/19 04:54 Giant Platelets Not Reportable 06/14/19 04:54 Platelet Satelliting Not Reportable 06/14/19 04:54 Plt Morphology Comment Not Reportable 06/14/19 04:54 RBC Morphology Not Reportable 06/14/19 04:54 Dimorphic RBCs Not Reportable 06/14/19 04:54 Polychromasia Not Reportable 06/14/19 04:54 Hypochromasia Not Reportable 06/14/19 04:54 Poikilocytosis Not Reportable 06/14/19 04:54 Anisocytosis 1+ 06/14/19 04:54 Microcytosis Not Reportable 06/14/19 04:54 Macrocytosis Rare 06/14/19 04:54 Spherocytes Not Reportable 06/14/19 04:54 Pappenheimer Bodies Not Reportable 06/14/19 04:54 Sickle Cells Not Reportable 06/14/19 04:54 Target Cells Not Reportable 06/14/19 04:54 Tear Drop Cells Not Reportable 06/14/19 04:54 Ovalocytes Not Reportable 06/14/19 04:54 Helmet Cells Not Reportable 06/14/19 04:54 [place] Bodies Not Reportable 06/14/19 04:54 [place] Rings Not Reportable 06/14/19 04:54 [place] Cells Not Reportable 06/14/19 04:54 Bite Cells Not Reportable 06/14/19 04:54 Crenated Cell Not Reportable 06/14/19 04:54 Elliptocytes Not Reportable 06/14/19 04:54 Acanthocytes (Spur) Not Reportable 06/14/19 04:54 Rouleaux Not Reportable 06/14/19 04:54 Hemoglobin C Crystals Not Reportable 06/14/19 04:54 Schistocytes Not Reportable 06/14/19 04:54 Malaria parasites Not Reportable 06/14/19 04:54 Jj Bodies Not Reportable 06/14/19 04:54 Hem Pathologist Commnt No 06/14/19 04:54 PT 13.5 Sec. (12.2-14.9) 06/14/19 04:54 INR 1.04 (0.87-1.13) 06/14/19 04:54 APTT 34.3 Sec. (24.2-36.6) 06/12/19 21:27 D-Dimer 472.88 ng/mlDDU (0-234) H 06/12/19 21:27 POC ABG pH 7.416 (7.35-7.45) 06/12/19 23:59 POC ABG pCO2 49.9 (35-45) H 06/12/19 23:59 POC ABG pO2 56 (80-105) L 06/12/19 23:59 POC ABG HCO3 32.0 (22-26 mml/L) 06/12/19 23:59 POC ABG Total CO2 34 (23-27mmol/L) 06/12/19 23:59 POC ABG O2 Sat 89 06/12/19 23:59 POC ABG Base Excess 8 ((-2) - (+3)mmol/L) 06/12/19 23:59 FiO2 21 % 06/12/19 23:59 Sodium 141 mmol/L (137-145) 06/19/19 06:38 Potassium 3.1 mmol/L (3.6-5.0) L 06/19/19 06:38 Chloride 96.0 mmol/L (98-107) L 06/19/19 06:38 Carbon Dioxide 33 mmol/L (22-30) H 06/19/19 06:38 Anion Gap 15 mmol/L 06/19/19 06:38 BUN 15 mg/dL (7-17) 06/19/19 06:38 Creatinine 0.7 mg/dL (0.7-1.2) 06/19/19 06:38 Estimated GFR > 60 ml/min 06/19/19 06:38 BUN/Creatinine Ratio 21 % 06/19/19 06:38 Glucose 87 mg/dL (65-100) 06/19/19 06:38 Calcium 7.7 mg/dL (8.4-10.2) L 06/19/19 06:38 Total Bilirubin 0.50 mg/dL (0.1-1.2) 06/12/19 21:27 AST 23 units/L (5-40) 06/12/19 21: ALT 32 units/L (7-56) 06/12/19 21: Alkaline Phosphatase 50 units/L (35-129) 06/12/19 21: Troponin T < 0.010 ng/mL (0.00-0.029) 06/13/19 00:09 NT-Pro-B Natriuret Pep 332.1 pg/mL (0-900) 06/12/19 21: Total Protein 7.5 g/dL (6.3-8.2) 06/12/19: Albumin 4.0 g/dL (3.9-5) 06/12/19: Albumin/Globulin Ratio 1.1 % 06/12/19: Urine Color Straw (Yellow) 06/12/19 23:00 Urine Turbidity Clear (Clear) 06/12/19 23:00 Urine pH 8.0 (5.0-7.0) H 06/12/19 23:00 Ur Specific [place] 1.009 (1.003-1.030) 06/12/19 23:00 Urine Protein <15 mg/dl mg/dL (Negative) 06/12/19 23:00 Urine Glucose (UA) Neg mg/dL (Negative) 06/12/19 23:00 Urine Ketones Neg mg/dL (Negative) 06/12/19 23:00 Urine Blood Neg (Negative) 06/12/19 23:00 Urine Nitrite Neg (Negative) 06/12/19 23:00 Urine Bilirubin Neg (Negative) 06/12/19 23:00 Urine Urobilinogen < 2.0 mg/dL (<2.0) 06/12/19 23:00 Ur Leukocyte Esterase Neg (Negative) 06/12/19 23:00 Urine WBC (Auto) 2.0 /HPF (0.0-6.0) 06/12/19 23:00 Urine RBC (Auto) 1.0 /HPF (0.0-6.0) 06/12/19 23:00 U Epithel Cells (Auto) 4.0 /HPF (0-13.0) 06/12/19 23:00 Urine Bacteria (Auto) 1+ /HPF (Negative) 06/12/19 23:00 Urine Mucus Few /HPF 06/12/19 23:00 Active Medications - Current Medications Current Medications: Generic Name Dose Route Start Last Admin Trade Name Freq PRN Reason Stop Dose Admin Acetaminophen 650 mg 06/13/19 03:19 Tylenol PO Q4H PRN Pain MILD(1-3)/Fever >100.5/FISHER Albuterol 2.5 mg 06/15/19 19:37 06/18/19 10:38 Proventil IH 2.5 mg Q4HRT PRN Administration Shortness Of Breath Albuterol/Ipratropium 1 ampul 06/18/19 08:00 06/19/19 13:21 Duoneb *Not For Prn Use* IH 1 ampul TIDRT DANIELLE Administration Arformoterol Tartrate 15 mcg 06/16/19 20:00 06/19/19 11:11 Brovana Nebu IH 15 mcg Q12HRT DANIELLE Administration Benzonatate 100 mg 06/18/19 12:00 06/19/19 13:33 Tessalon Perles PO 100 mg Q8HR DANIELLE Administration Budesonide 0.25 mg 06/16/19 20:00 06/18/19 21:11 Pulmicort IH 0.25 mg Q12HRT DANIELLE Administration Enoxaparin Sodium 40 mg 06/14/19 10:00 06/19/19 12:04 Enoxaparin SUB-Q 40 mg QDAY DANIELLE Administration Famotidine 20 mg 06/14/19 10:00 06/19/19 12:05 Pepcid PO 20 mg QDAY DANIELLE Administration Furosemide 20 mg 06/17/19 10:00 06/19/19 12:05 Lasix PO 20 mg QDAY DANIELLE Administration Guaifenesin 200 mg 06/14/19 01:55 06/19/19 05:26 Robitussin PO 200 mg Q6H PRN Administration Cough Magnesium Hydroxide 30 ml 06/13/19 03:19 Milk Of Magnesia PO Q4H PRN Constipation Nicotine 7 mg 06/14/19 18:00 06/19/19 12:08 Habitrol TD 7 mg QDAY DANIELLE Administration Ondansetron HCl 4 mg 06/13/19 03:19 Zofran IV Q8H PRN Nausea And Vomiting Prednisone 30 mg 06/18/19 10:00 06/19/19 12:05 Deltasone PO 30 mg QDAY DANIELLE Administration Sodium Chloride 10 ml 06/13/19 10:00 06/19/19 12:07 Sodium Chloride Flush Syringe 10 Ml IV 10 ml BID DANIELLE Administration Sodium Chloride 10 ml 06/13/19 03:19 06/14/19 05:31 Sodium Chloride Flush Syringe 10 Ml IV 10 ml PRN PRN Administration LINE FLUSH
--- NOTE | 2019-06-19 14:34 | Discharge Summary ---
Providers - Providers Date of Admission: 06/14/19 11:08 Date of discharge: 06/19/19 Attending physician: ARMANDO HUNTER 06/13/19 13:50 Consult to Physician [CONS] Routine Comment: Consulting Provider: CHITO JEROME Physician Instructions: Reason For Exam: copd 06/14/19 17:12 Consult to Case Management [CONS] Routine Services Needed at Discharge: Home O2 Notified:: amber Primary care physician: SYSTEMS OPERATOR Hospitalization Condition: Stable Hospital course: Patient is a 58-year-old woman with known history of COPD, hypertension, CHF, tobacco dependency and ANANDA who presented to the emergency room with complaining of shortness of breath and productive cough x 2 -3 days. Pulse Ox dropped down to 83% on RA. Discharge Diagnoses: Acute hypoxic and hypercapnic resp failure due to COPD-cont steroids, nebs, oxygen, rescue bipap as needed, pulm input appreciated Acute COPD exacerbation: treat with steroid, nebs ANANDA, has cpap at home Tobacco abuse/dependence-Smoking cessation counseling performed Disposition: DC- TO HOME OR SELFCARE Time spent for discharge: 34 minutes Core Measure Documentation - Palliative Care Palliative Care/ Comfort Measures: Not Applicable - Core Measures Any of the following diagnoses?: none - VTE Discharge Requirements Deep Vein Thrombosis/Pulmonary Embolism Present on Admission: No Has pt received <5 days of overlap therapy or INR<2.0: No Anticoagulant overlap therapy prescribed at discharge: No Contraindication No Overlap Therapy order at DC: Not Indicated Exam - Physical Exam Narrative exam: Gen: WDWN, NAD, Awake, Alert, Orientated x 3 HEENT: NCAT, EOMI, PERRL, OP Clear Neck: supple, no adenopathy, no thyromegaly, no JVD CVS/Heart: RRR, normal S1S2, pulses present bilaterally Chest/Lungs: diminished bs bilateral but improved, Symmetrical chest expansion, good air entry bilaterally GI/Abdomen: soft, NTND, good bowel sounds, no guarding or rebound /Bladder: no suprapubic tenderness, no CVA or paraspinal tenderness Extermity/Skin: no c/c/e, no obvious rash MSK: FROM x 4 Neuro: CN 2-12 grossly intact, no new focal deficits Psych: calm - Constitutional Vitals: Temp Pulse Resp BP Pulse Ox 98.4 F 78 20 141/80 95 06/19/19 11:46 11/21/19 13:31 06/19/19 13:31 06/19/19 11:46 06/19/19 11:46 Plan Activity: other (no strenous activity unless cleared by Hospice Administrator) Diet: low salt Special Instructions: smoking cessation Durable Medical Equipment Needed Upon Discharge: Oxygen Follow up with: PRIMARY CARE, [Primary Care Provider] - 3-5 Days CHITO JEROME MD [Staff Physician] - 7 Days Prescriptions: cefUROXime [Ceftin] 2 tab PO BID #6 tablet Ipratropium/Albuterol Sulfate [DUONEB *Not for PRN Use*] 1 ampul IH BID #7 ampul.neb Nicotine [Habitrol] 14 mg TD DAILY #14 patch Furosemide [Lasix TAB] 20 mg PO QDAY #30 tablet methylPREDNISolone [Medrol 4MG DOSEPAK (21 tabs)] 1 dose PO DAILY #1 pack ALBUTEROL Inhaler (OR & NICU) [ProAir HFA Inhaler] 2 puff IH QID PRN #2 inha PRN Reason: Shortness Of Breath ALBUTEROL NEB's [Proventil 0.083% NEBS] 2.5 mg IH Q4HRT PRN #30 nebu PRN Reason: Shortness Of Breath Budesonide/Formoterol Fumarate [Symbicort 160-4.5 Mcg Inhaler] 2 inhalation IH BID #1 hfa.aer.ad Benzonatate [Tessalon Perles] 100 mg PO Q8HR #9 capsule
[2019-06-19] MEDS ORDERED: POTASSIUM CHLORIDE ER 20 MEQ TAB PO ONE (15:00)
[2019-06-19] MEDS: BUDESONIDE 0.25 MG/2 ML NEBU IH SCH ×2 (16:46→20:48)
[2019-06-20] MEDS: guaiFENesin 100 MG/5 ML ORAL LIQD PO PRN (04:50)
[2019-06-20] MEDS: BENZONATATE 100 MG CAP PO SCH ×3 (07:06→21:56)
[2019-06-20] MEDS: ARFORMOTEROL 15 MCG/2 ML NEBU IH SCH ×2 (08:10→21:01)
[2019-06-20] MEDS: BUDESONIDE 0.25 MG/2 ML NEBU IH SCH ×2 (08:10→21:01)
[2019-06-20] MEDS: IPRATROPIUM/ALBUTEROL SULFATE 3 ML AMPUL.NEB IH SCH ×3 (08:10→21:06)
[2019-06-20] MEDS: NICOTINE 7 MG/24 HR PATCH TD SCH (10:17)
[2019-06-20] MEDS: predniSONE 10 MG TAB PO SCH (10:17)
[2019-06-20] MEDS: ENOXAPARIN 40 MG/0.4 ML INJ SUB-Q SCH (10:17)
[2019-06-20] MEDS: FAMOTIDINE 20 MG TAB PO SCH (10:18)
[2019-06-20] MEDS: FUROSEMIDE 20 MG TAB PO SCH (10:18)
--- NOTE | 2019-06-20 13:49 | Progress Note ---
<PRATIMA CANO - Last Filed: 06/20/19 14:09> Assessment and Plan Assessment and plan: 58-year-old female with known history of COPD, hypertension, CHF and sleep apnea presents with complaints of shortness of breath persistent for the past few days A/P Acute hypoxic and hypercapnic resp failure -cont steroids, nebs, oxygen, rescue bipap as needed, COPD exacerbation -Bronchodilators- JALIL/JEROMY, ICS -Continue supplemental oxygen to keep O2 sats 88-90% ANANDA -continue home use of CPAP tobacco abuse/dependence - nicotine patches prn. smoking cessation Obesity -lifestyle modifications, weight loss dvt ppx -lovenox History Interval history: Patient was seen and examined. Follow-up on current diagnosis of COPD. Pt still complains of shortness of breath with exertion, symptoms have improved since admission. Pt denies fever, CP, No reported nursing events. Discussed plans of discharge home with O2. Hospitalist Physical - Constitutional Vitals: Temp Pulse Resp BP Pulse Ox 97.5 F L 67 20 106/67 100 06/20/19 06:00 06/20/19 08:10 06/20/19 08:10 06/20/19 06:00 06/20/19 08:09 General appearance: Present: no acute distress - EENT Eyes: Present: PERRL, EOM intact ENT: hearing intact, clear oral mucosa - Neck Neck: Present: supple, normal ROM - Respiratory Respiratory effort: normal Respiratory: bilateral: diminished - Cardiovascular Rhythm: regular Heart Sounds: Present: S1 & S2 - Extremities Extremities: pulses intact, Full ROM Extremity abnormal: edema - Abdominal General gastrointestinal: non-tender - Integumentary Integumentary: Present: clear, warm, dry - Psychiatric Psychiatric: appropriate mood/affect - Neurologic Neurologic: CNII-XII intact, moves all extremities Results - Labs CBC & Chem 7: 06/19/19 06:38 06/19/19 06:38 Labs: Laboratory Last Values WBC 11.4 K/mm3 (4.5-11.0) H 06/19/19 06:38 RBC 4.84 M/mm3 (3.65-5.03) 06/19/19 06:38 Hgb 14.3 gm/dl (10.1-14.3) 06/19/19 06:38 Hct 43.7 % (30.3-42.9) H 06/19/19 06:38 MCV 91 fl (79-97) 06/19/19 06:38 MCH 30 pg (28-32) 06/19/19 06:38 MCHC 33 % (30-34) 06/19/19 06:38 RDW 14.6 % (13.2-15.2) 06/19/19 06:38 Plt Count 231 K/mm3 (140-440) 06/19/19 06:38 Lymph % (Auto) 20.2 % (13.4-35.0) 06/12/19 21:27 Scott % (Auto) 7.9 % (0.0-7.3) H 06/12/19 21:27 Eos % (Auto) 1.8 % (0.0-4.3) 06/12/19 21: Baso % (Auto) 0.6 % (0.0-1.8) 06/12/19 21: Lymph # 1.6 K/mm3 (1.2-5.4) 06/12/19 21:27 Scott # 0.6 K/mm3 (0.0-0.8) 06/12/19 21:27 Eos # 0.1 K/mm3 (0.0-0.4) 06/12/19 21:27 Baso # 0.0 K/mm3 (0.0-0.1) 06/12/19 21:27 Add Manual Diff Complete 06/14/19 04:54 Total Counted 100 06/14/19 04:54 Seg Neutrophils % [employer] 06/14/19 04:54 Seg Neuts % (Manual) 89.0 % (40.0-70.0) H 06/14/19 04:54 Band Neutrophils % 0 % 06/14/19 04:54 Lymphocytes % (Manual) 9.0 % (13.4-35.0) L 06/14/19 04:54 Reactive Lymphs % (Man) 0 % 06/14/19 04:54 Monocytes % (Manual) 2.0 % (0.0-7.3) 06/14/19 04:54 Eosinophils % (Manual) 0 % (0.0-4.3) 06/14/19 04:54 Basophils % (Manual) 0 % (0.0-1.8) 06/14/19 04:54 Metamyelocytes % 0 % 06/14/19 04:54 Myelocytes % 0 % 06/14/19 04:54 Promyelocytes % 0 % 06/14/19 04:54 Blast Cells % 0 % 06/14/19 04:54 Nucleated RBC % Not Reportable 06/14/19 04:54 Seg Neutrophils # 5.4 K/mm3 (1.8-7.7) 06/12/19 21:27 Seg Neutrophils # Man 13.4 K/mm3 (1.8-7.7) H 06/14/19 04:54 Band Neutrophils # 0.0 K/mm3 06/14/19 04:54 Lymphocytes # (Manual) 1.4 K/mm3 (1.2-5.4) 06/14/19 04:54 Abs React Lymphs (Man) 0.0 K/mm3 06/14/19 04:54 Monocytes # (Manual) 0.3 K/mm3 (0.0-0.8) 06/14/19 04:54 Eosinophils # (Manual) 0.0 K/mm3 (0.0-0.4) 06/14/19 04:54 Basophils # (Manual) 0.0 K/mm3 (0.0-0.1) 06/14/19 04:54 Metamyelocytes # 0.0 K/mm3 06/14/19 04:54 Myelocytes # 0.0 K/mm3 06/14/19 04:54 Promyelocytes # 0.0 K/mm3 06/14/19 04:54 Blast Cells # 0.0 K/mm3 06/14/19 04:54 WBC Morphology Not Reportable 06/14/19 04:54 Hypersegmented Neuts Not Reportable 06/14/19 04:54 Hyposegmented Neuts Not Reportable 06/14/19 04:54 Hypogranular Neuts Not Reportable 06/14/19 04:54 Smudge Cells Not Reportable 06/14/19 04:54 Toxic Granulation Not Reportable 06/14/19 04:54 Toxic Vacuolation Not Reportable 06/14/19 04:54 Dohle Bodies Not Reportable 06/14/19 04:54 Pelger-Huet Anomaly Not Reportable 06/14/19 04:54 Daly Rods Not Reportable 06/14/19 04:54 Platelet Estimate Consistent w auto 06/14/19 04:54 Clumped Platelets Not Reportable 06/14/19 04:54 Plt Clumps, EDTA Not Reportable 06/14/19 04:54 Large Platelets Not Reportable 06/14/19 04:54 Giant Platelets Not Reportable 06/14/19 04:54 Platelet Satelliting Not Reportable 06/14/19 04:54 Plt Morphology Comment Not Reportable 06/14/19 04:54 RBC Morphology Not Reportable 06/14/19 04:54 Dimorphic RBCs Not Reportable 06/14/19 04:54 Polychromasia Not Reportable 06/14/19 04:54 Hypochromasia Not Reportable 06/14/19 04:54 Poikilocytosis Not Reportable 06/14/19 04:54 Anisocytosis 1+ 06/14/19 04:54 Microcytosis Not Reportable 06/14/19 04:54 Macrocytosis Rare 06/14/19 04:54 Spherocytes Not Reportable 06/14/19 04:54 Pappenheimer Bodies Not Reportable 06/14/19 04:54 Sickle Cells Not Reportable 06/14/19 04:54 Target Cells Not Reportable 06/14/19 04:54 Tear Drop Cells Not Reportable 06/14/19 04:54 Ovalocytes Not Reportable 06/14/19 04:54 Helmet Cells Not Reportable 06/14/19 04:54 Kc-Ideal Bodies Not Reportable 06/14/19 04:54 [place] Rings Not Reportable 06/14/19 04:54 [place] Cells Not Reportable 06/14/19 04:54 Bite Cells Not Reportable 06/14/19 04:54 Crenated Cell Not Reportable 06/14/19 04:54 Elliptocytes Not Reportable 06/14/19 04:54 Acanthocytes (Spur) Not Reportable 06/14/19 04:54 Rouleaux Not Reportable 06/14/19 04:54 Hemoglobin C Crystals Not Reportable 06/14/19 04:54 Schistocytes Not Reportable 06/14/19 04:54 Malaria parasites Not Reportable 06/14/19 04:54 Jj Bodies Not Reportable 06/14/19 04:54 Hem Pathologist Commnt No 06/14/19 04:54 PT 13.5 Sec. (12.2-14.9) 06/14/19 04:54 INR 1.04 (0.87-1.13) 06/14/19 04:54 APTT 34.3 Sec. (24.2-36.6) 06/12/19 21:27 D-Dimer 472.88 ng/mlDDU (0-234) H 06/12/19 21:27 POC ABG pH 7.416 (7.35-7.45) 06/12/19 23:59 POC ABG pCO2 49.9 (35-45) H 06/12/19 23:59 POC ABG pO2 56 (80-105) L 06/12/19 23:59 POC ABG HCO3 32.0 (22-26 mml/L) 06/12/19 23:59 POC ABG Total CO2 34 (23-27mmol/L) 06/12/19 23:59 POC ABG O2 Sat 89 06/12/19 23:59 POC ABG Base Excess 8 ((-2) - (+3)mmol/L) 06/12/19 23:59 FiO2 21 % 06/12/19 23:59 Sodium 141 mmol/L (137-145) 06/19/19 06:38 Potassium 3.1 mmol/L (3.6-5.0) L 06/19/19 06:38 Chloride 96.0 mmol/L (98-107) L 06/19/19 06:38 Carbon Dioxide 33 mmol/L (22-30) H 06/19/19 06:38 Anion Gap 15 mmol/L 06/19/19 06:38 BUN 15 mg/dL (7-17) 06/19/19 06:38 Creatinine 0.7 mg/dL (0.7-1.2) 06/19/19 06:38 Estimated GFR > 60 ml/min 06/19/19 06:38 BUN/Creatinine Ratio 21 % 06/19/19 06:38 Glucose 87 mg/dL (65-100) 06/19/19 06:38 Calcium 7.7 mg/dL (8.4-10.2) L 06/19/19 06:38 Total Bilirubin 0.50 mg/dL (0.1-1.2) 06/12/19 21:27 AST 23 units/L (5-40) 06/12/19 21:27 ALT 32 units/L (7-56) 06/12/19 21: Alkaline Phosphatase 50 units/L (35-129) 06/12/19 21: Troponin T < 0.010 ng/mL (0.00-0.029) 06/13/19 00:09 NT-Pro-B Natriuret Pep 332.1 pg/mL (0-900) 06/12/19 21: Total Protein 7.5 g/dL (6.3-8.2) 06/12/19: Albumin 4.0 g/dL (3.9-5) 06/12/19 21: Albumin/Globulin Ratio 1.1 % 06/12/19 21: Urine Color Straw (Yellow) 06/12/19 23:00 Urine Turbidity Clear (Clear) 06/12/19 23:00 Urine pH 8.0 (5.0-7.0) H 06/12/19 23:00 Ur Specific [place] 1.009 (1.003-1.030) 06/12/19 23:00 Urine Protein <15 mg/dl mg/dL (Negative) 06/12/19 23:00 Urine Glucose (UA) Neg mg/dL (Negative) 06/12/19 23:00 Urine Ketones Neg mg/dL (Negative) 06/12/19 23:00 Urine Blood Neg (Negative) 06/12/19 23:00 Urine Nitrite Neg (Negative) 06/12/19 23:00 Urine Bilirubin Neg (Negative) 06/12/19 23:00 Urine Urobilinogen < 2.0 mg/dL (<2.0) 06/12/19 23:00 Ur Leukocyte Esterase Neg (Negative) 06/12/19 23:00 Urine WBC (Auto) 2.0 /HPF (0.0-6.0) 06/12/19 23:00 Urine RBC (Auto) 1.0 /HPF (0.0-6.0) 06/12/19 23:00 U Epithel Cells (Auto) 4.0 /HPF (0-13.0) 06/12/19 23:00 Urine Bacteria (Auto) 1+ /HPF (Negative) 06/12/19 23:00 Urine Mucus Few /HPF 06/12/19 23:00 Active Medications - Current Medications Current Medications: Generic Name Dose Route Start Last Admin Trade Name Freq PRN Reason Stop Dose Admin Acetaminophen 650 mg 06/13/19 03:19 Tylenol PO Q4H PRN Pain MILD(1-3)/Fever >100.5/FISHER Albuterol 2.5 mg 06/15/19 19:37 06/18/19 10:38 Proventil IH 2.5 mg Q4HRT PRN Administration Shortness Of Breath Albuterol/Ipratropium 1 ampul 06/18/19 08:00 06/20/19 08:10 Duoneb *Not For Prn Use* IH Not Given TIDRT DANIELLE Arformoterol Tartrate 15 mcg 06/16/19 20:00 06/20/19 08:10 Brovana Nebu IH 15 mcg Q12HRT DANIELLE Administration Benzonatate 100 mg 06/18/19 12:00 06/20/19 07:06 Tessalon Perles PO 100 mg Q8HR DANIELLE Administration Budesonide 0.25 mg 06/16/19 20:00 06/20/19 08:10 Pulmicort IH 0.25 mg Q12HRT DANIELLE Administration Enoxaparin Sodium 40 mg 06/14/19 10:00 06/20/19 10:17 Enoxaparin SUB-Q 40 mg QDAY DANIELLE Administration Famotidine 20 mg 06/14/19 10:00 06/20/19 10:18 Pepcid PO 20 mg QDAY DANIELLE Administration Furosemide 20 mg 06/17/19 10:00 06/20/19 10:18 Lasix PO 20 mg QDAY DANIELLE Administration Guaifenesin 200 mg 06/14/19 01:55 06/20/19 04:50 Robitussin PO 200 mg Q6H PRN Administration Cough Magnesium Hydroxide 30 ml 06/13/19 03:19 Milk Of Magnesia PO Q4H PRN Constipation Nicotine 7 mg 06/14/19 18:00 06/20/19 10:17 Habitrol TD 7 mg QDAY DANIELLE Administration Ondansetron HCl 4 mg 06/13/19 03:19 Zofran IV Q8H PRN Nausea And Vomiting Prednisone 30 mg 06/18/19 10:00 06/20/19 10:17 Deltasone PO 30 mg QDAY DANIELLE Administration Sodium Chloride 10 ml 06/13/19 10:00 06/19/19 21:36 Sodium Chloride Flush Syringe 10 Ml IV 10 ml BID DANIELLE Administration Sodium Chloride 10 ml 06/13/19 03:19 06/14/19 05:31 Sodium Chloride Flush Syringe 10 Ml IV 10 ml PRN PRN Administration LINE FLUSH Nutrition/Malnutrition Assess - Dietary Evaluation Nutrition/Malnutrition Findings: Nutrition Notes Start: 06/20/19 11:08 Freq: Status: Active Protocol: Document 06/20/19 11:08 NANCY (Rec: 06/20/19 11:09 NANCY [id number]) Co-Sign 06/20/19 11:08 LP Nutrition Notes Need for Assessment generated from: LOS Initial or Follow up Brief Note Subjective/Other Information RD consult for LOS. 100% intakes documented in chart. Chart stated that the diet was well tolerated. Nutrition Intervention Revisit per MD consult or patient Sign Off request: <ARMANDO HUNTER - Last Filed: 06/20/19 14:49> Assessment and Plan Assessment and plan: I saw and evaluated the patient. I agree with the findings and the plan of care as documented in the Nurse Practitioner's~note, with the following corrections and additions. replete potassium Disposition: continue inpatient care, Oxygen was delivered to room yesterday but her Credit card was declined and they took away the Oxygen because she could not pay. Today, will try to wean off O2 again. Hospitalist Physical - Constitutional Vitals: Temp Pulse Resp BP Pulse Ox 97.5 F L 80 20 106/67 100 06/20/19 06:00 06/20/19 14:19 06/20/19 14:19 06/20/19 06:00 06/20/19 08:09 Results - Labs CBC & Chem 7: 06/19/19 06:38 06/19/19 06:38 Labs: Laboratory Last Values WBC 11.4 K/mm3 (4.5-11.0) H 06/19/19 06:38 RBC 4.84 M/mm3 (3.65-5.03) 06/19/19 06:38 Hgb 14.3 gm/dl (10.1-14.3) 06/19/19 06:38 Hct 43.7 % (30.3-42.9) H 06/19/19 06:38 MCV 91 fl (79-97) 06/19/19 06:38 MCH 30 pg (28-32) 06/19/19 06:38 MCHC 33 % (30-34) 06/19/19 06:38 RDW 14.6 % (13.2-15.2) 06/19/19 06:38 Plt Count 231 K/mm3 (140-440) 06/19/19 06:38 Lymph % (Auto) 20.2 % (13.4-35.0) 06/12/19 21:27 Scott % (Auto) 7.9 % (0.0-7.3) H 06/12/19 21:27 Eos % (Auto) 1.8 % (0.0-4.3) 06/12/19 21:27 Baso % (Auto) 0.6 % (0.0-1.8) 06/12/19 21: Lymph # 1.6 K/mm3 (1.2-5.4) 06/12/19 21:27 Scott # 0.6 K/mm3 (0.0-0.8) 06/12/19 21:27 Eos # 0.1 K/mm3 (0.0-0.4) 06/12/19 21:27 Baso # 0.0 K/mm3 (0.0-0.1) 06/12/19 21:27 Add Manual Diff Complete 06/14/19 04:54 Total Counted 100 06/14/19 04:54 Seg Neutrophils % [employer] Design Engineer 06/14/19 04:54 Seg Neuts % (Manual) 89.0 % (40.0-70.0) H 06/14/19 04:54 Band Neutrophils % 0 % 06/14/19 04:54 Lymphocytes % (Manual) 9.0 % (13.4-35.0) L 06/14/19 04:54 Reactive Lymphs % (Man) 0 % 06/14/19 04:54 Monocytes % (Manual) 2.0 % (0.0-7.3) 06/14/19 04:54 Eosinophils % (Manual) 0 % (0.0-4.3) 06/14/19 04:54 Basophils % (Manual) 0 % (0.0-1.8) 06/14/19 04:54 Metamyelocytes % 0 % 06/14/19 04:54 Myelocytes % 0 % 06/14/19 04:54 Promyelocytes % 0 % 06/14/19 04:54 Blast Cells % 0 % 06/14/19 04:54 Nucleated RBC % Not Reportable 06/14/19 04:54 Seg Neutrophils # 5.4 K/mm3 (1.8-7.7) 06/12/19 21:27 Seg Neutrophils # Man 13.4 K/mm3 (1.8-7.7) H 06/14/19 04:54 Band Neutrophils # 0.0 K/mm3 06/14/19 04:54 Lymphocytes # (Manual) 1.4 K/mm3 (1.2-5.4) 06/14/19 04:54 Abs React Lymphs (Man) 0.0 K/mm3 06/14/19 04:54 Monocytes # (Manual) 0.3 K/mm3 (0.0-0.8) 06/14/19 04:54 Eosinophils # (Manual) 0.0 K/mm3 (0.0-0.4) 06/14/19 04:54 Basophils # (Manual) 0.0 K/mm3 (0.0-0.1) 06/14/19 04:54 Metamyelocytes # 0.0 K/mm3 06/14/19 04:54 Myelocytes # 0.0 K/mm3 06/14/19 04:54 Promyelocytes # 0.0 K/mm3 06/14/19 04:54 Blast Cells # 0.0 K/mm3 06/14/19 04:54 WBC Morphology Not Reportable 06/14/19 04:54 Hypersegmented Neuts Not Reportable 06/14/19 04:54 Hyposegmented Neuts Not Reportable 06/14/19 04:54 Hypogranular Neuts Not Reportable 06/14/19 04:54 Smudge Cells Not Reportable 06/14/19 04:54 Toxic Granulation Not Reportable 06/14/19 04:54 Toxic Vacuolation Not Reportable 06/14/19 04:54 Dohle Bodies Not Reportable 06/14/19 04:54 Pelger-Huet Anomaly Not Reportable 06/14/19 04:54 Daly Rods Not Reportable 06/14/19 04:54 Platelet Estimate Consistent w auto 06/14/19 04:54 Clumped Platelets Not Reportable 06/14/19 04:54 Plt Clumps, EDTA Not Reportable 06/14/19 04:54 Large Platelets Not Reportable 06/14/19 04:54 Giant Platelets Not Reportable 06/14/19 04:54 Platelet Satelliting Not Reportable 06/14/19 04:54 Plt Morphology Comment Not Reportable 06/14/19 04:54 RBC Morphology Not Reportable 06/14/19 04:54 Dimorphic RBCs Not Reportable 06/14/19 04:54 Polychromasia Not Reportable 06/14/19 04:54 Hypochromasia Not Reportable 06/14/19 04:54 Poikilocytosis Not Reportable 06/14/19 04:54 Anisocytosis 1+ 06/14/19 04:54 Microcytosis Not Reportable 06/14/19 04:54 Macrocytosis Rare 06/14/19 04:54 Spherocytes Not Reportable 06/14/19 04:54 Pappenheimer Bodies Not Reportable 06/14/19 04:54 Sickle Cells Not Reportable 06/14/19 04:54 Target Cells Not Reportable 06/14/19 04:54 Tear Drop Cells Not Reportable 06/14/19 04:54 Ovalocytes Not Reportable 06/14/19 04:54 Helmet Cells Not Reportable 06/14/19 04:54 Kc-Ideal Bodies Not Reportable 06/14/19 04:54 [place] Rings Not Reportable 06/14/19 04:54 [place] Cells Not Reportable 06/14/19 04:54 Bite Cells Not Reportable 06/14/19 04:54 Crenated Cell Not Reportable 06/14/19 04:54 Elliptocytes Not Reportable 06/14/19 04:54 Acanthocytes (Spur) Not Reportable 06/14/19 04:54 Rouleaux Not Reportable 06/14/19 04:54 Hemoglobin C Crystals Not Reportable 06/14/19 04:54 Schistocytes Not Reportable 06/14/19 04:54 Malaria parasites Not Reportable 06/14/19 04:54 Jj Bodies Not Reportable 06/14/19 04:54 Hem Pathologist Commnt No 06/14/19 04:54 PT 13.5 Sec. (12.2-14.9) 06/14/19 04:54 INR 1.04 (0.87-1.13) 06/14/19 04:54 APTT 34.3 Sec. (24.2-36.6) 06/12/19 21:27 D-Dimer 472.88 ng/mlDDU (0-234) H 06/12/19 21:27 POC ABG pH 7.416 (7.35-7.45) 06/12/19 23:59 POC ABG pCO2 49.9 (35-45) H 06/12/19 23:59 POC ABG pO2 56 (80-105) L 06/12/19 23:59 POC ABG HCO3 32.0 (22-26 mml/L) 06/12/19 23:59 POC ABG Total CO2 34 (23-27mmol/L) 06/12/19 23:59 POC ABG O2 Sat 89 06/12/19 23:59 POC ABG Base Excess 8 ((-2) - (+3)mmol/L) 06/12/19 23:59 FiO2 21 % 06/12/19 23:59 Sodium 141 mmol/L (137-145) 06/19/19 06:38 Potassium 3.1 mmol/L (3.6-5.0) L 06/19/19 06:38 Chloride 96.0 mmol/L (98-107) L 06/19/19 06:38 Carbon Dioxide 33 mmol/L (22-30) H 06/19/19 06:38 Anion Gap 15 mmol/L 06/19/19 06:38 BUN 15 mg/dL (7-17) 06/19/19 06:38 Creatinine 0.7 mg/dL (0.7-1.2) 06/19/19 06:38 Estimated GFR > 60 ml/min 06/19/19 06:38 BUN/Creatinine Ratio 21 % 06/19/19 06:38 Glucose 87 mg/dL (65-100) 06/19/19 06:38 Calcium 7.7 mg/dL (8.4-10.2) L 06/19/19 06:38 Total Bilirubin 0.50 mg/dL (0.1-1.2) 06/12/19 21:27 AST 23 units/L (5-40) 06/12/19 21:27 ALT 32 units/L (7-56) 06/12/19 21:27 Alkaline Phosphatase 50 units/L (35-129) 06/12/19 21:27 Troponin T < 0.010 ng/mL (0.00-0.029) 06/13/19 00:09 NT-Pro-B Natriuret Pep 332.1 pg/mL (0-900) 06/12/19 21:27 Total Protein 7.5 g/dL (6.3-8.2) 06/12/19 21:27 Albumin 4.0 g/dL (3.9-5) 06/12/19 21:27 Albumin/Globulin Ratio 1.1 % 06/12/19 21:27 Urine Color Straw (Yellow) 06/12/19 23:00 Urine Turbidity Clear (Clear) 06/12/19 23:00 Urine pH 8.0 (5.0-7.0) H 06/12/19 23:00 Ur Specific [place] 1.009 (1.003-1.030) 06/12/19 23:00 Urine Protein <15 mg/dl mg/dL (Negative) 06/12/19 23:00 Urine Glucose (UA) Neg mg/dL (Negative) 06/12/19 23:00 Urine Ketones Neg mg/dL (Negative) 06/12/19 23:00 Urine Blood Neg (Negative) 06/12/19 23:00 Urine Nitrite Neg (Negative) 06/12/19 23:00 Urine Bilirubin Neg (Negative) 06/12/19 23:00 Urine Urobilinogen < 2.0 mg/dL (<2.0) 06/12/19 23:00 Ur Leukocyte Esterase Neg (Negative) 06/12/19 23:00 Urine WBC (Auto) 2.0 /HPF (0.0-6.0) 06/12/19 23:00 Urine RBC (Auto) 1.0 /HPF (0.0-6.0) 06/12/19 23:00 U Epithel Cells (Auto) 4.0 /HPF (0-13.0) 06/12/19 23:00 Urine Bacteria (Auto) 1+ /HPF (Negative) 06/12/19 23:00 Urine Mucus Few /HPF 06/12/19 23:00 Active Medications - Current Medications Current Medications: Generic Name Dose Route Start Last Admin Trade Name Freq PRN Reason Stop Dose Admin Acetaminophen 650 mg 06/13/19 03:19 Tylenol PO Q4H PRN Pain MILD(1-3)/Fever >100.5/FISHER Albuterol 2.5 mg 06/15/19 19:37 06/18/19 10:38 Proventil IH 2.5 mg Q4HRT PRN Administration Shortness Of Breath Albuterol/Ipratropium 1 ampul 06/18/19 08:00 06/20/19 14:19 Duoneb *Not For Prn Use* IH 1 ampul TIDRT DANIELLE Administration Arformoterol Tartrate 15 mcg 06/16/19 20:00 06/20/19 08:10 Brovankiarra Nebu IH 15 mcg Q12HRT DANIELLE Administration Benzonatate 100 mg 06/18/19 12:00 06/20/19 13:47 Tessalon Perles PO 100 mg Q8HR DANIELLE Administration Budesonide 0.25 mg 06/16/19 20:00 06/20/19 08:10 Pulmicort IH 0.25 mg Q12HRT DANIELLE Administration Enoxaparin Sodium 40 mg 06/14/19 10:00 06/20/19 10:17 Enoxaparin SUB-Q 40 mg QDAY DANIELLE Administration Famotidine 20 mg 06/14/19 10:00 06/20/19 10:18 Pepcid PO 20 mg QDAY DANIELLE Administration Furosemide 20 mg 06/17/19 10:00 06/20/19 10:18 Lasix PO 20 mg QDAY DANIELLE Administration Guaifenesin 200 mg 06/14/19 01:55 06/20/19 04:50 Robitussin PO 200 mg Q6H PRN Administration Cough Magnesium Hydroxide 30 ml 06/13/19 03:19 Milk Of Magnesia PO Q4H PRN Constipation Nicotine 7 mg 06/14/19 18:00 06/20/19 10:17 Habitrol TD 7 mg QDAY DANIELLE Administration Ondansetron HCl 4 mg 06/13/19 03:19 Zofran IV Q8H PRN Nausea And Vomiting Prednisone 30 mg 06/18/19 10:00 06/20/19 10:17 Deltasone PO 30 mg QDAY DANIELLE Administration Sodium Chloride 10 ml 06/13/19 10:00 06/20/19 13:48 Sodium Chloride Flush Syringe 10 Ml IV 10 ml BID DANIELLE Administration Sodium Chloride 10 ml 06/13/19 03:19 06/14/19 05:31 Sodium Chloride Flush Syringe 10 Ml IV 10 ml PRN PRN Administration LINE FLUSH Nutrition/Malnutrition Assess - Dietary Evaluation Nutrition/Malnutrition Findings: Nutrition Notes Start: 06/20/19 11:08 Freq: Status: Active Protocol: Document 06/20/19 11:08 NANCY (Rec: 06/20/19 11:09 NANCY [id number]) Co-Sign 06/20/19 11:08 LP Nutrition Notes Need for Assessment generated from: LOS Initial or Follow up Brief Note Subjective/Other Information RD consult for LOS. 100% intakes documented in chart. Chart stated that the diet was well tolerated. Nutrition Intervention Revisit per MD consult or patient Sign Off request:
[2019-06-20] MEDS ORDERED: POTASSIUM CHLORIDE ER 20 MEQ TAB PO ONE (14:46)
[2019-06-21] MEDS: guaiFENesin 100 MG/5 ML ORAL LIQD PO PRN (02:03)
[2019-06-21] MEDS: BENZONATATE 100 MG CAP PO SCH ×2 (05:11→14:00)
[2019-06-21] MEDS: ARFORMOTEROL 15 MCG/2 ML NEBU IH SCH (09:00)
[2019-06-21] MEDS: IPRATROPIUM/ALBUTEROL SULFATE 3 ML AMPUL.NEB IH SCH ×2 (09:00→14:47)
[2019-06-21] MEDS: BUDESONIDE 0.25 MG/2 ML NEBU IH SCH (09:00)
[2019-06-21] MEDS: FUROSEMIDE 20 MG TAB PO SCH (09:01)
[2019-06-21] MEDS: NICOTINE 7 MG/24 HR PATCH TD SCH (09:01)
[2019-06-21] MEDS: predniSONE 10 MG TAB PO SCH (09:01)
[2019-06-21] MEDS: ENOXAPARIN 40 MG/0.4 ML INJ SUB-Q SCH (09:02)
[2019-06-21] MEDS: FAMOTIDINE 20 MG TAB PO SCH (11:31)
--- NOTE | 2019-06-21 14:12 | Progress Note ---
Assessment and Plan 8-year-old Neisha female presents to the emergency department with complaint of a one-week history of bilateral lower leg swelling, as well as a few days of shortness of breath. The patient is also been dealing with about 1- 2 weeks of a productive cough. At first it was greenish sputum but it has now turned clear. The patient says that she "caught a cold." She tried some [id number] Robitussin and cough medications without any relief. She has a past medical history of COPD, CHF, sleep apnea, hypertension. She is not oxygen dependent. She does not use her CPAP. She does not have a primary care physician or manufacturing automation engineer. No recent travel or sick contacts at home. Patient has heavy history of smoking 2 packs a day x 30 years. Counselled to stop smoking. Denies alcohol or drug abuse. Worked as security. Allergic to latex. and has 3 children. Patient is on 2 litres O2. Patients O2 saturation 96%. Chest xray reported no acute findings. Angio CT of chest reported NO PE. Has changes of COPD. D dimer 483, elevated Recommend venous doppler studies of legs. ABG FIO2 not known. POC ABG pH 7.416 (7.35-7.45) 06/12/19 23:59 POC ABG pCO2 49.9 (35-45) H 06/12/19 23:59 POC ABG pO2 56 (80-105) L 06/12/19 23:59 POC ABG HCO3 32.0 (22-26 mml/L) 06/12/19 23:59 POC ABG Total CO2 34 (23-27mmol/L) 06/12/19 23:59 POC ABG O2 Sat 89 06/12/19 23:59 Patient may be a candidate for home O2. Recommend to check O2 saturation on room air with exercise. - Patient Problems (1) COPD exacerbation Current Visit: Yes Status: Acute Plan to address problem: O2 2 litres via nasal canula. Albuterol/atrovent aerosol treatments q 6 hours. Continue I/V solumedrol. Recommend DVT and GI prophylaxis. Continue Levaquin. PFTs as out patient. (2) Acute respiratory failure with hypercapnia Current Visit: No Status: Acute Plan to address problem: O2 2 litres via nasal canula. Albuterol/atrovent aerosol treatments q 6 hours. Continue I/V solumedrol. Recommend DVT and GI prophylaxis. Continue Levaquin. (3) Acute bronchitis Current Visit: Yes Status: Acute Plan to address problem: Patient is on Levaquin. (4) Tobacco abuse Current Visit: Yes Status: Chronic Plan to address problem: Counselled to stop smoking. (5) Morbid obesity with BMI of 40.0-44.9, adult Current Visit: Yes Status: Acute Plan to address problem: Recommend to loose weight. Exercise and diet. (6) Obstructive sleep apnea Current Visit: Yes Status: Acute Plan to address problem: Place her on BIPAP 14/03, rate 16, FIO2 39%. Subjective Date of service: 06/21/19 Principal diagnosis: AE-COPD; Ac hypoxemic and hypercapnic Resp Failure; Tobacco abuse; ANANDA Objective Vital Signs - 12hr 06/21/19 06/21/19 06/21/19 05:35 09:01 09:30 Temperature 98.0 F Pulse Rate 70 Pulse Rate [ 103 H Bilateral] Respiratory 20 Rate Respiratory 20 Rate [Bilateral ] Blood Pressure 112/73 O2 Sat by Pulse 98 97 Oximetry 06/21/19 11:34 Temperature 98.9 F Pulse Rate 78 Pulse Rate [ Bilateral] Respiratory 18 Rate Respiratory Rate [Bilateral ] Blood Pressure 124/73 O2 Sat by Pulse 97 Oximetry Constitutional: no acute distress, alert, other (obese) Eyes: non-icteric ENT: oropharynx moist Neck: supple, no JVD Effort: mildly labored Ascultation: Bilateral: diminished breath sounds, other (Prolonged expiratory phase.) Percussion: Bilateral: not dull Cardiovascular: regular rate and rhythm, other (S1,S2, no murmurs, gallops or rubs) Gastrointestinal: normoactive bowel sounds, soft, non-tender, non-distended Integumentary: normal Extremities: no cyanosis, edema Neurologic: normal mental status, non-focal exam, pupils equal and round, CN II- XII normal, motor strength normal and Psychiatric: mood appropriate, affect normal CBC and BMP: 06/19/19 06:38 06/19/19 06:38 ABG, PT/INR, D-dimer: ABG POC ABG pH 7.416 (7.35-7.45) 06/12/19 23:59 POC ABG pCO2 49.9 (35-45) H 06/12/19 23:59 POC ABG pO2 56 (80-105) L 06/12/19 23:59 POC ABG HCO3 32.0 (22-26 mml/L) 06/12/19 23:59 POC ABG Total CO2 34 (23-27mmol/L) 06/12/19 23:59 POC ABG O2 Sat 89 06/12/19 23:59 PT/INR, D-dimer PT 13.5 Sec. (12.2-14.9) 06/14/19 04:54 INR 1.04 (0.87-1.13) 06/14/19 04:54 D-Dimer 472.88 ng/mlDDU (0-234) H 06/12/19 21:27 Abnormal lab findings: Abnormal Labs 06/12/19 06/12/19 06/12/19 21:27 21:27 21:27 WBC Hct [place] % (Auto) 7.9 H Seg Neuts % (Manual) Lymphocytes % (Manual) Seg Neutrophils # Man D-Dimer 472.88 H POC ABG pCO2 POC ABG pO2 Potassium 3.3 L Chloride Carbon Dioxide Creatinine 0.6 L Glucose 116 H Calcium Urine pH 06/12/19 06/12/19 06/14/19 23:00 23:59 04:54 WBC 15.1 H Hct [place] % (Auto) Seg Neuts % (Manual) 89.0 H Lymphocytes % (Manual) 9.0 L Seg Neutrophils # Man 13.4 H D-Dimer POC ABG pCO2 49.9 H POC ABG pO2 56 L Potassium Chloride Carbon Dioxide Creatinine Glucose Calcium Urine pH 8.0 H 06/14/19 06/19/19 06/19/19 04:54 06:38 06:38 WBC 11.4 H Hct 43.7 H [place] % (Auto) Seg Neuts % (Manual) Lymphocytes % (Manual) Seg Neutrophils # Man D-Dimer POC ABG pCO2 POC ABG pO2 Potassium 3.1 L Chloride 96.0 L Carbon Dioxide 33 H Creatinine 0.6 L Glucose 164 H Calcium 7.7 L Urine pH Chest x-ray: report reviewed (No acute findings.), image reviewed CT scan - chest: report reviewed (No PE, No infiltrates. COPD), image reviewed Allied health notes reviewed: nursing
--- NOTE | 2019-06-21 15:32 | Discharge Summary ---
Providers - Providers Date of Admission: 06/14/19 11:08 Date of discharge: 06/21/19 Attending physician: YAN PANDYA 06/13/19 13:50 Consult to Physician [CONS] Routine Comment: Consulting Provider: CHITO JEROME Physician Instructions: Reason For Exam: copd 06/14/19 17:12 Consult to Case Management [CONS] Routine Services Needed at Discharge: Home O2 Notified:: amber Primary care physician: SOLUTIONS ANALYST Hospitalization Reason for admission: COPD exacerbation Condition: Stable Hospital course: He should've 58-year-old presented with COPD exacerbation. Was placed on Solu- Medrol steroids empiric antibiotics. Thought to be secondary to acute bronchitis. Patient defervesced well. Was able to have sats of 9790% at rest. On short distances patient sats stayed at 94% by longer distances it did go down to 87. She will require follow-up PFTs outpatient with Dr. Lala. We'll also continue robotics Levaquin. We'll also add nebulizers which she has now. Steroids. Disposition: DC- TO HOME OR SELFCARE - Discharge Diagnoses (1) Acute bronchitis Status: Acute (2) COPD exacerbation Status: Acute (3) Morbid obesity with BMI of 40.0-44.9, adult Status: Acute (4) Obstructive sleep apnea Status: Acute (5) Tobacco abuse Status: Chronic (6) Acute respiratory failure with hypercapnia Status: Acute Core Measure Documentation - Palliative Care Palliative Care/ Comfort Measures: Not Applicable - Core Measures Any of the following diagnoses?: none Exam - Constitutional Vitals: Temp Pulse Resp BP Pulse Ox 98.9 F 78 18 124/73 97 06/21/19 11:34 06/21/19 11:34 06/21/19 11:34 06/21/19 11:34 06/21/19 11:34 General appearance: Present: no acute distress, well-nourished - EENT Eyes: Present: PERRL ENT: hearing intact, clear oral mucosa, other (obese large neck circumference.) - Neck Neck: Present: supple, normal ROM - Respiratory Respiratory effort: normal Respiratory: right: diminished (fair air entry.), bilateral: CTA - Cardiovascular Heart Sounds: Present: S1 & S2. Absent: rub, click - Extremities Extremities: pulses symmetrical, No edema Peripheral Pulses: within normal limits - Abdominal General gastrointestinal: Present: soft, non-tender, non-distended, normal bowel sounds Female genitourinary: Present: normal - Integumentary Integumentary: Present: clear, warm, dry - Musculoskeletal Musculoskeletal: gait normal, strength equal bilaterally - Psychiatric Psychiatric: appropriate mood/affect, intact judgment & insight - Neurologic Neurologic: CNII-XII intact, moves all extremities Plan Activity: fall precautions Weight Bearing Status: Full Weight Bearing Diet: diabetic Follow up with: PRIMARY CAREMD [Primary Care Provider] - 3-5 Days CHITO JEROME MD [Staff Physician] - 7 Days Prescriptions: cefUROXime [Ceftin] 2 tab PO BID #6 tablet Ipratropium/Albuterol Sulfate [DUONEB *Not for PRN Use*] 1 ampul IH BID #7 ampul.neb Nicotine [Habitrol] 14 mg TD DAILY #14 patch Furosemide [Lasix TAB] 20 mg PO QDAY #30 tablet methylPREDNISolone [Medrol 4MG DOSEPAK (21 tabs)] 1 dose PO DAILY #1 pack ALBUTEROL Inhaler (OR & NICU) [ProAir HFA Inhaler] 2 puff IH QID PRN #2 inha PRN Reason: Shortness Of Breath ALBUTEROL NEB's [Proventil 0.083% NEBS] 2.5 mg IH Q4HRT PRN #30 nebu PRN Reason: Shortness Of Breath Budesonide/Formoterol Fumarate [Symbicort 160-4.5 Mcg Inhaler] 2 inhalation IH BID #1 hfa.aer.ad Benzonatate [Tessalon Perles] 100 mg PO Q8HR #9 capsule
[2019-06-21 18:22] VITALS: BP 137/69
== END 2019-06-21 18:42 | disposition home or self-care (01) | DRG 189 ==
LOC: ED 20:23 → 4A 06-13 01:42 → 3A 06-13 18:40 → OBSVTOIN 06-14 11:08
PROVIDERS: ADMIT Internal Medicine Geriatric Medicine; ATTEND Internal Medicine
PROC: 4A033R1 Measurement of Arterial Saturation, Peripheral, Percutaneous Approach (ICD-10-PCS; 2019-06-12)
PROC: 5A09357 Assistance with Respiratory Ventilation, Less than 24 Consecutive Hours, Continuous Positive Airway Pressure (ICD-10-PCS; principal; 2019-06-14)
DX: J96.02 Acute respiratory failure with hypercapnia (principal); J44.1 Chronic obstructive pulmonary disease with (acute) exacerbation; Z68.41 Body mass index [BMI] 40.0-44.9, adult; J44.0 Chronic obstructive pulmonary disease with (acute) lower respiratory infection; J96.01 Acute respiratory failure with hypoxia; E66.01 Morbid (severe) obesity due to excess calories; F17.210 Nicotine dependence, cigarettes, uncomplicated; I11.0 Hypertensive heart disease with heart failure; I50.9 Heart failure, unspecified; G47.33 Obstructive sleep apnea (adult) (pediatric); J20.9 Acute bronchitis, unspecified; Z82.49 Family history of ischemic heart disease and other diseases of the circulatory system; Z83.3 Family history of diabetes mellitus; Z91.040 Latex allergy status; Z79.51 Long term (current) use of inhaled steroids; Z79.899 Other long term (current) drug therapy; Z71.6 Tobacco abuse counseling
CPT/HCPCS: 36415; 71046; 71275; 80048; 80053; 81001; 82803; 83880; 84484; 85007; 85025; 85027; 85379; 85610; 85730; 90686; 93005; 93010; 93306; 93970; 94640; 94644; 94660; 94760; 96374; 96375; 99406; G0378; J1650; J1940; J1956; J2920; J2930; J7512; Q9967

== ENCOUNTER 2019-12-23 03:45 | Inpatient (IN) | payer OTHER ==
[2019-12-23] MEDS ORDERED: IPRATROPIUM 0.02% NEBU 2.5 ML IH ONE (04:15)
[2019-12-23] MEDS ORDERED: ALBUTEROL 2.5 MG/3 ML NEBU IH ONE ×2 (04:15→06:31)
[2019-12-23] MEDS ORDERED: methylPREDNISolone Sod Succinate 125 MG/2 ML INJ IV ONE (04:17)
[2019-12-23] MEDS ORDERED: MAGNESIUM SULFATE 2 GM/50 ML BAG IV ONE (04:17)
[2019-12-23 04:38] LABS: Basophils % (Auto) 0.6 % (0.0-1.8); Eosinophils # (Auto) 1.1 K/mm3 (0.0-0.4); Eosinophils % (Auto) 13.9 % (0.0-4.3); Hematocrit 38.5 % (30.3-42.9); Lymphocytes # (Auto) 1.6 K/mm3 (1.2-5.4); Lymphocytes % (Auto) 20.2 % (13.4-35.0); Mean Corpuscular HGB Conc 34 % (30-34); Mean Corpuscular Volume 91 fl (79-97); Monocytes # (Auto) 0.6 K/mm3 (0.0-0.8); Monocytes % (Auto) 7.7 % (0.0-7.3); Platelet Count 272 K/mm3 (140-440); Red Blood Count 4.25 M/mm3 (3.65-5.03); Red Cell Distribution Width 13.6 % (13.2-15.2)
--- NOTE | 2019-12-23 04:45 | XRay Report ---
CHEST 1 VIEW, 12/23/2019 4:37 AM CLINICAL INFORMATION/INDICATION: Shortness of breath for several weeks COMPARISON: Chest radiograph, 06/12/2019 FINDINGS: SUPPORT DEVICES: None. HEART: The cardiac silhouette is normal in size. LUNGS/PLEURA: The lungs are clear of focal airspace disease or significant pleural effusion. ADDITIONAL FINDINGS: No additional acute findings. IMPRESSION: 1. No evidence of acute cardiopulmonary process. Signer Name: Yana Whitney MD Signed: 12/23/2019 4:41 AM Workstation Name: [employer]
[2019-12-23 04:49] LABS: Bilirubin,Urine NEG (Negative); Blood,Urine NEG (Negative); Color,Urine Colorless (Yellow); Mucus,Urine FEW /HPF; Protein,Urine <15 mg/dL mg/dL (Negative); RBC,Urine < 1.0 /HPF (0.0-6.0); Urobilinogen,Urine < 2.0 mg/dL (<2.0); WBC,Urine < 1.0 /HPF (0.0-6.0)
[2019-12-23 05:03] LABS: BUN/Creatinine Ratio 7; Blood Urea Nitrogen 4 mg/dL (7-17); Calcium 9.1 mg/dL (8.4-10.2); Creatine Kinase MB 5.1 ng/mL (0.0-4.0); Hemolysis Index 4
--- NOTE | 2019-12-23 06:36 | Emergency Department Report ---
ED Shortness of Breath HPI - General Chief Complaint: Dyspnea/Respdistress Stated Complaint: TWAN Time Seen by Provider: 12/23/19 06:13 Source: patient, EMS Mode of arrival: Ambulatory Limitations: Physical Limitation - History of Present Illness Initial Comments: Patient is 58 years old female with history of COPD, congestive heart failure and hypertension. Patient brought to the emergency room via EMS from home for evaluation of difficulty breathing and bilateral lower extremity swelling. Patient stated that she was diagnosed with congestive heart failure in 2019 but since then she did not follow-up with her primary doctor. Patient denied any chest pain, fever or chills. She also denied any recent contact with patient is COVID-19. Patient received Lasix by EMS. Upon arrival to the ER patient started on BiPAP, given albuterol, Atrovent, Solu-Medrol and magnesium sulfate. MD Complaint: shortness of breath, cough -: days(s) - Related Data Previous Rx's Medication Instructions Recorded Last Taken Type ALBUTEROL NEB's [Proventil 0.083% 2.5 mg IH Q4HRT PRN #30 nebu 06/19/19 Unknown Rx NEBS] Acetaminophen [Acetaminophen TAB] 1 tab PO Q4H PRN #15 tablet 06/19/19 Unknown Rx Albuterol INH(or & Nicu Only) 2 puff IH QID PRN #2 inha 06/19/19 Unknown Rx [ProAir HFA Inhaler] Benzonatate [Tessalon Perles] 100 mg PO Q8HR #9 capsule 06/19/19 Unknown Rx Budesonide/Formoterol Fumarate 2 inhalation IH BID #1 hfa.aer.ad 06/19/19 Unknown Rx [Symbicort 160-4.5 Mcg Inhaler] Famotidine [Pepcid] 20 mg PO QDAY #15 tablet 06/19/19 Unknown Rx Furosemide [Lasix TAB] 20 mg PO QDAY #30 tablet 06/19/19 Unknown Rx Ipratropium/Albuterol Sulfate 1 ampul IH BID #7 ampul.neb 06/19/19 Unknown Rx [DUONEB *Not for PRN Use*] Nicotine [Habitrol] 14 mg TD DAILY #14 patch 06/19/19 Unknown Rx cefUROXime [Ceftin] 2 tab PO BID #6 tablet 06/19/19 Unknown Rx methylPREDNISolone [Medrol 4MG 1 dose PO DAILY #1 pack 06/19/19 Unknown Rx DOSEPAK (21 tabs)] Allergies Allergy/AdvReac Type Severity Reaction Status Date / Time latex AdvReac Unknown Verified 07/01/13 23:57 ED Review of Systems ROS: Stated complaint: TWAN Other details as noted in HPI Comment: All other systems reviewed and negative Constitutional: denies: chills, fever Respiratory: cough, orthopnea, shortness of breath, SOB with exertion, SOB at rest, wheezing Cardiovascular: dyspnea on exertion, orthopnea. 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 - Social History Smoking Status: Former Smoker Substance Use Type: None - Medications Home Medications: Home Medications Medication Instructions Recorded Confirmed Last Taken Type ALBUTEROL NEB's [Proventil 0.083% 2.5 mg IH Q4HRT PRN #30 nebu 06/19/19 Unknown Rx NEBS] Acetaminophen [Acetaminophen TAB] 1 tab PO Q4H PRN #15 tablet 06/19/19 Unknown Rx Albuterol INH(or & Nicu Only) 2 puff IH QID PRN #2 inha 06/19/19 Unknown Rx [ProAir HFA Inhaler] Benzonatate [Tessalon Perles] 100 mg PO Q8HR #9 capsule 06/19/19 Unknown Rx Budesonide/Formoterol Fumarate 2 inhalation IH BID #1 hfa.aer.ad 06/19/19 Unknown Rx [Symbicort 160-4.5 Mcg Inhaler] Famotidine [Pepcid] 20 mg PO QDAY #15 tablet 06/19/19 Unknown Rx Furosemide [Lasix TAB] 20 mg PO QDAY #30 tablet 06/19/19 Unknown Rx Ipratropium/Albuterol Sulfate 1 ampul IH BID #7 ampul.neb 06/19/19 Unknown Rx [DUONEB *Not for PRN Use*] Nicotine [Habitrol] 14 mg TD DAILY #14 patch 06/19/19 Unknown Rx cefUROXime [Ceftin] 2 tab PO BID #6 tablet 06/19/19 Unknown Rx methylPREDNISolone [Medrol 4MG 1 dose PO DAILY #1 pack 06/19/19 Unknown Rx DOSEPAK (21 tabs)] ED Physical Exam - General Limitations: Physical Limitation General appearance: alert, in distress (Moderate respiratory distress) - Head Head exam: Present: atraumatic, normocephalic, normal inspection - Eye Eye exam: Present: normal appearance, PERRL - ENT ENT exam: Present: normal exam, normal orophraynx, mucous membranes moist - Neck Neck exam: Present: normal inspection, full ROM. Absent: tenderness, meningismus, lymphadenopathy, thyromegaly - Respiratory Respiratory exam: Present: respiratory distress, wheezes, rales, rhonchi, accessory muscle use, decreased breath sounds, prolonged expiratory. Absent: stridor - Cardiovascular Cardiovascular Exam: Present: tachycardia - GI/Abdominal GI/Abdominal exam: Present: soft, normal bowel sounds. Absent: distended, tenderness, guarding, rebound, rigid, organomegaly, mass, bruit, pulsatile mass, hernia - Extremities Exam Extremities exam: Present: full ROM, normal capillary refill, pedal edema. Absent: calf tenderness - Back Exam Back exam: Present: normal inspection, full ROM. Absent: CVA tenderness (R), CVA tenderness (L) - Neurological Exam Neurological exam: Present: alert, oriented X3, CN II-XII intact - Psychiatric Psychiatric exam: Present: normal mood - Skin Skin exam: Present: warm, intact, normal color ED Course Vital Signs 12/23/19 12/23/19 12/23/19 04:05 04:08 04:16 Temperature 98.3 F Pulse Rate 100 H 101 H Pulse Rate [ Anterior Bilateral Throughout] Respiratory 21 22 Rate Respiratory Rate [Anterior Bilateral Throughout] Blood Pressure 153/91 [Left] O2 Sat by Pulse 100 100 99 Oximetry 12/23/19 12/23/19 12/23/19 04:20 04:30 04:46 Temperature Pulse Rate 100 H Pulse Rate [ Anterior Bilateral Throughout] Respiratory 22 Rate Respiratory Rate [Anterior Bilateral Throughout] Blood Pressure [Left] O2 Sat by Pulse 100 96 100 Oximetry 12/23/19 12/23/19 12/23/19 05:00 05:16 06:30 Temperature Pulse Rate Pulse Rate [ 84 Anterior Bilateral Throughout] Respiratory Rate Respiratory 22 Rate [Anterior Bilateral Throughout] Blood Pressure [Left] O2 Sat by Pulse 100 99 Oximetry 12/23/19 07:30 Temperature Pulse Rate 98 H Pulse Rate [ Anterior Bilateral Throughout] Respiratory 20 Rate Respiratory Rate [Anterior Bilateral Throughout] Blood Pressure 149/52 [Left] O2 Sat by Pulse 100 Oximetry ED Medical Decision Making - Lab Data Result diagrams: 12/23/19 04:21 12/23/19 04:21 - EKG Data -: EKG Interpreted by Mi EKG shows normal: sinus rhythm Rate: tachycardia - EKG Data Interpretation: no acute changes - Radiology Data Radiology results: report reviewed - Medical Decision Making Patient is 58 years old female with history of COPD, congestive heart failure and hypertension. Patient brought to the emergency room via EMS from home for evaluation of difficulty breathing and bilateral lower extremity swelling. Patient stated that she was diagnosed with congestive heart failure in 2019 but since then she did not follow-up with her primary doctor. Patient denied any chest pain, fever or chills. She also denied any recent contact with patient is COVID-19. Patient received Lasix by EMS. Upon arrival to the ER patient started on BiPAP, given albuterol, Atrovent, Solu-Medrol and magnesium sulfate. Labs reviewed and is unremarkable. Chest x-ray is negative for acute finding. I discussed the patient with Dr. Funez, he advised to admit the patient to Dr. Matute. Critical Care Time: Yes Critical care time in (mins) excluding proc time.: 30 Critical care attestation.: If time is entered above; I have spent that time in minutes in the direct care of this critically ill patient, excluding procedure time. ED Disposition Clinical Impression: COPD exacerbation, CHF exacerbation Disposition: OP ADMIT IP TO THIS HOSP Is pt being admited?: Yes Condition: Stable Instructions: Chronic Bronchitis (ED) Referrals: PRIMARY CARE, [Primary Care Provider] - 3-5 Days
[2019-12-23 09:18] LABS: ABG HCO3 34.5 mmol/L (20.0-26.0); ABG Methemoglobin 0.6 % (0.0-1.5); ABG Oxygen Saturation 93.9 % (95.0-99.0); ABG PCO2 62.9 mm Hg; ABG PH 7.357 pH Units (7.350-7.450); ABG PO2 66.4 mm Hg (80.0-90.0)
[2019-12-23] MEDS ORDERED: ALBUTEROL 8.5 GM INHALATION IH PRN (18:18)
[2019-12-23] MEDS ORDERED: ACETAMINOPHEN 325 MG TAB PO PRN ×2 (18:18→18:20)
--- NOTE | 2019-12-23 18:18 | History and Physical Report ---
History of Present Illness Date of examination: 12/23/19 Date of admission: 12/23/19 08:29 Chief complaint: SOB at rest 3 days History of present illness: 58 years old female with history of COPD, congestive heart failure and hypertension brought to the emergency room via EMS from home for evaluation of difficulty breathing and bilateral lower extremity swelling. Patient stated that she was diagnosed with congestive heart failure in 2019 but since then she did not follow-up with her primary doctor. Patient denied any chest pain, fever or chills. She also denied any recent contact with patient is COVID-19. Patient received Lasix by EMS. Upon arrival to the ER patient started on BiPAP, given albuterol, Atrovent, Solu-Medrol and magnesium sulfate. 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 - Social History Smoking Status: Former Smoker Substance Use Type: None Family History Htn - Medications Home Medications: Home Medications Medication Instructions Recorded Confirmed Last Taken Type ALBUTEROL NEB's [Proventil 0.083% 2.5 mg IH Q4HRT PRN #30 nebu 06/19/19 Unknown Rx NEBS] Acetaminophen [Acetaminophen TAB] 1 tab PO Q4H PRN #15 tablet 06/19/19 Unknown Rx Albuterol INH(or & Nicu Only) 2 puff IH QID PRN #2 inha 06/19/19 Unknown Rx [ProAir HFA Inhaler] Benzonatate [Tessalon Perles] 100 mg PO Q8HR #9 capsule 06/19/19 Unknown Rx Budesonide/Formoterol Fumarate 2 inhalation IH BID #1 hfa.aer.ad 06/19/19 U nknown Rx [Symbicort 160-4.5 Mcg Inhaler] Famotidine [Pepcid] 20 mg PO QDAY #15 tablet 06/19/19 Unknown Rx Furosemide [Lasix TAB] 20 mg PO QDAY #30 tablet 06/19/19 Unknown Rx Ipratropium/Albuterol Sulfate 1 ampul IH BID #7 ampul.neb 06/19/19 Unknown Rx [DUONEB *Not for PRN Use*] Nicotine [Habitrol] 14 mg TD DAILY #14 patch 06/19/19 Unknown Rx cefUROXime [Ceftin] 2 tab PO BID #6 tablet 06/19/19 Unknown Rx methylPREDNISolone [Medrol 4MG 1 dose PO DAILY #1 pack 06/19/19 Unknown Rx DOSEPAK (21 tabs)] Review of Systems ROS: Stated complaint: TWAN Other details as noted in HPI Comment: All other systems reviewed and negative Constitutional: denies: chills, fever Respiratory: cough, orthopnea, shortness of breath, SOB with exertion, SOB at re st, wheezing Cardiovascular: dyspnea on exertion, orthopnea. denies: chest pain, palpitations Gastrointestinal: denies: abdominal pain, nausea, vomiting, diarrhea, constipation, hematemesis, melena, hematochezia Musculoskeletal: denies: back pain Medications and Allergies Allergies Allergy/AdvReac Type Severity Reaction Status Date / Time latex AdvReac Unknown Verified 07/01/13 23:57 Home Medications Medication Instructions Recorded Confirmed Last Taken Type ALBUTEROL NEB's [Proventil 0.083% 2.5 mg IH Q4HRT PRN #30 nebu 06/19/19 12/23/19 Unknown Rx NEBS] Acetaminophen [Acetaminophen TAB] 1 tab PO Q4H PRN #15 tablet 06/19/19 12/23/19 Unknown Rx Albuterol INH(or & Nicu Only) 2 puff IH QID PRN #2 inha 06/19/19 12/23/19 Unknown Rx [ProAir HFA Inhaler] Benzonatate [Tessalon Perles] 100 mg PO Q8HR #9 capsule 06/19/19 12/23/19 Unknown Rx Budesonide/Formoterol Fumarate 2 inhalation IH BID #1 hfa.aer.ad 06/19/19 12/23/19 Unknown Rx [Symbicort 160-4.5 Mcg Inhaler] Famotidine [Pepcid] 20 mg PO QDAY #15 tablet 06/19/19 12/23/19 Unknown Rx Furosemide [Lasix TAB] 20 mg PO QDAY #30 tablet 06/19/19 12/23/19 Unknown Rx Ipratropium/Albuterol Sulfate 1 ampul IH BID #7 ampul.neb 06/19/19 12/23/19 Unknown Rx [DUONEB *Not for PRN Use*] Nicotine [Habitrol] 14 mg TD DAILY #14 patch 06/19/19 12/23/19 Unknown Rx cefUROXime [Ceftin] 2 tab PO BID #6 tablet 06/19/19 12/23/19 Unknown Rx methylPREDNISolone [Medrol 4MG 1 dose PO DAILY #1 pack 06/19/19 12/23/19 Unknown Rx DOSEPAK (21 tabs)] Exam - Constitutional Vitals: Temp Pulse Resp BP Pulse Ox 97.7 F 83 18 124/59 100 12/23/19 15:24 12/23/19 15:24 12/23/19 15:24 12/23/19 15:24 12/23/19 15:24 General appearance: Present: no acute distress, well-nourished - EENT Eyes: Present: PERRL ENT: hearing intact, clear oral mucosa - Neck Neck: Present: supple, normal ROM - Respiratory Respiratory effort: normal Respiratory: bilateral: CTA, rales, rhonchi, wheezing - Cardiovascular Heart rate: 78 Heart Sounds: Present: S1 & S2. Absent: rub, click - Extremities Extremities: pulses symmetrical, No edema Extremity abnormal: edema (2 plus) Peripheral Pulses: within normal limits - Abdominal General gastrointestinal: Present: soft, non-tender, non-distended, normal bowel sounds Female genitourinary: Present: normal - Rectal Rectal Exam: deferred - Integumentary Integumentary: Present: clear, warm, dry - Musculoskeletal Musculoskeletal: gait normal, strength equal bilaterally - Psychiatric Psychiatric: appropriate mood/affect, intact judgment & insight - Neurologic Neurologic: CNII-XII intact, moves all extremities - Allied Health Allied health notes reviewed: nursing, case management HEART Score - HEART Score Troponin: Troponin T < 0.010 ng/mL (0.00-0.029) 12/23/19 04:21 Results - Labs CBC & Chem 7: 12/24/19 05:58 12/24/19 05:58 Labs: Laboratory Last Values WBC 8.1 K/mm3 (4.5-11.0) 12/23/19 04:21 RBC 4.25 M/mm3 (3.65-5.03) 12/23/19 04:21 Hgb 13.0 gm/dl (10.1-14.3) 12/23/19 04:21 Hct 38.5 % (30.3-42.9) 12/23/19 04:21 MCV 91 fl (79-97) 12/23/19 04:21 MCH 31 pg (28-32) 12/23/19 04:21 MCHC 34 % (30-34) 12/23/19 04:21 RDW 13.6 % (13.2-15.2) 12/23/19 04:21 Plt Count 272 K/mm3 (140-440) 12/23/19 04:21 Lymph % (Auto) 20.2 % (13.4-35.0) 12/23/19 04:21 [place] % (Auto) 7.7 % (0.0-7.3) H 12/23/19 04:21 Eos % (Auto) 13.9 % (0.0-4.3) H 12/23/19 04:21 Baso % (Auto) 0.6 % (0.0-1.8) 12/23/19 04:21 Lymph # 1.6 K/mm3 (1.2-5.4) 12/23/19 04:21 [place] # 0.6 K/mm3 (0.0-0.8) 12/23/19 04:21 Eos # 1.1 K/mm3 (0.0-0.4) H 12/23/19 04:21 Baso # 0.0 K/mm3 (0.0-0.1) 12/23/19 04:21 Seg Neutrophils % 57.6 % (40.0-70.0) 12/23/19 04:21 Seg Neutrophils # 4.7 K/mm3 (1.8-7.7) 12/23/19 04:21 ABG pH 7.357 pH Units (7.350-7.450) 12/23/19 08:50 ABG pCO2 62.9 mm Hg 12/23/19 08:50 ABG pO2 66.4 mm Hg (80.0-90.0) L 12/23/19 08:50 ABG HCO3 34.5 mmol/L (20.0-26.0) H 12/23/19 08:50 ABG O2 Saturation 93.9 % (95.0-99.0) L 12/23/19 08:50 ABG O2 Content 16.5 (0.0-44) 12/23/19 08:50 ABG Base Excess 7.0 mmol/L (-2.0-3.0) H 12/23/19 08:50 ABG Hemoglobin 12.8 gm/dl (12.0-16.0) 12/23/19 08:50 ABG Carboxyhemoglobin 1.3 % (0.0-5.0) 12/23/19 08:50 ABG Methemoglobin 0.6 % (0.0-1.5) 12/23/19 08:50 Oxyhemoglobin 92.0 % (95.0-99.0) L 12/23/19 08:50 FiO2 40 % 12/23/19 08:50 Sodium 141 mmol/L (137-145) 12/23/19 04:21 Potassium 3.1 mmol/L (3.6-5.0) L 12/23/19 04:21 Chloride 95.0 mmol/L (98-107) L 12/23/19 04:21 Carbon Dioxide 32 mmol/L (22-30) H 12/23/19 04:21 Anion Gap 17 mmol/L 12/23/19 04:21 BUN 4 mg/dL (7-17) L 12/23/19 04:21 Creatinine 0.6 mg/dL (0.7-1.2) L 12/23/19 04:21 Estimated GFR > 60 ml/min 12/23/19 04:21 BUN/Creatinine Ratio 7 % 12/23/19 04:21 Glucose 116 mg/dL (65-100) H 12/23/19 04:21 Calcium 9.1 mg/dL (8.4-10.2) 12/23/19 04:21 Total Creatine Kinase 604 units/L (30-135) H 12/23/19 04:21 CK-MB (CK-2) 5.1 ng/mL (0.0-4.0) H 12/23/19 04:21 CK-MB (CK-2) Rel Index 0.8 (0-4) 12/23/19 04:21 Troponin T < 0.010 ng/mL (0.00-0.029) 12/23/19 04:21 NT-Pro-B Natriuret Pep 107.8 pg/mL (0-900) 12/23/19 04:21 Urine Color Colorless (Yellow) 12/23/19 04:04 Urine Turbidity Clear (Clear) 12/23/19 04:04 Urine pH 7.0 (5.0-7.0) 12/23/19 04:04 Ur Specific [place] 1.004 (1.003-1.030) 12/23/19 04:04 Urine Protein <15 mg/dl mg/dL (Negative) 12/23/19 04:04 Urine Glucose (UA) Neg mg/dL (Negative) 12/23/19 04:04 Urine Ketones Neg mg/dL (Negative) 12/23/19 04:04 Urine Blood Neg (Negative) 12/23/19 04:04 Urine Nitrite Neg (Negative) 12/23/19 04:04 Urine Bilirubin Neg (Negative) 12/23/19 04:04 Urine Urobilinogen < 2.0 mg/dL (<2.0) 12/23/19 04:04 Ur Leukocyte Esterase Neg (Negative) 12/23/19 04:04 Urine WBC (Auto) < 1.0 /HPF (0.0-6.0) 12/23/19 04:04 Urine RBC (Auto) < 1.0 /HPF (0.0-6.0) 12/23/19 04:04 U Epithel Cells (Auto) 2.0 /HPF (0-13.0) 12/23/19 04:04 Urine Mucus Few /HPF 12/23/19 04:04 Moss/IV: IV Catheter Type [Right INT / Saline Lock Antecubital] Assessment and Plan Advance Directives: Yes (Full code) VTE prophylaxis?: Chemical Plan of care discussed with patient/family: Yes - Patient Problems (1) Acute respiratory failure with hypoxia Current Visit: Yes Status: Acute Plan to address problem: patient was on Bipap and tachypneic (2) CHF exacerbation Current Visit: Yes Status: Acute Plan to address problem: IV Lasix ECHO for EF I/o Daily weights (3) COPD exacerbation Current Visit: Yes Status: Acute Plan to address problem: Cont IV abx solumedrol and duonebs (4) HTN (hypertension) Current Visit: Yes Status: Chronic Qualifiers: Hypertension type: essential hypertension Qualified Code(s): I10 - Essential (primary) hypertension Plan to address problem: cont anihypertensives (5) DVT prophylaxis Current Visit: No Status: Acute Plan to address problem: Heparin and GI prophylaxis
[2019-12-23] MEDS ORDERED: METOCLOPRAMIDE 10 MG/2 ML INJ IV PRN (18:20)
[2019-12-23] MEDS ORDERED: oxyCODONE /ACETAMINOPHEN 5-325MG TAB PO PRN (18:20)
[2019-12-23] MEDS ORDERED: ONDANSETRON 4 MG/2 ML INJ IV PRN (18:20)
[2019-12-23] MEDS ORDERED: HYDROmorphone 1 MG/1 ML INJ IV PRN (18:20)
[2019-12-23] MEDS ORDERED: METHYLPREDNISOLONE PO SCH (18:30)
[2019-12-23] MEDS ORDERED: IPRATROPIUM/ALBUTEROL SULFATE 3 ML AMPUL.NEB IH PRN (19:00)
[2019-12-23] MEDS: IPRATROPIUM/ALBUTEROL SULFATE 3 ML AMPUL.NEB IH SCH (19:35)
[2019-12-23] MEDS: BUDESONIDE 0.5 MG/2 ML NEBU IH SCH (19:35)
[2019-12-23] MEDS: ARFORMOTEROL 15 MCG/2 ML NEBU IH SCH ×2 (19:35→19:45)
[2019-12-23] MEDS: BENZONATATE 100 MG CAP PO SCH (21:56)
[2019-12-23] MEDS: FAMOTIDINE 20 MG TAB PO SCH (21:56)
[2019-12-23] MEDS: NICOTINE 14 MG/24 HR PATCH TD SCH (21:56)
[2019-12-23] MEDS: POTASSIUM CHLORIDE ER 20 MEQ TAB PO SCH (21:56)
[2019-12-23] MEDS ORDERED: FORMOTEROL FUMARATE IH SCH (22:00)
[2019-12-23] MEDS ORDERED: [UNRECOGNIZED DRUG - OTHER] IH SCH (22:00)
[2019-12-23] MEDS ORDERED: BUDESONIDE IH SCH (22:00)
[2019-12-23] MEDS ORDERED: INHAL IH SCH (22:00)
[2019-12-24] MEDS: BENZONATATE 100 MG CAP PO SCH ×3 (05:08→21:44)
[2019-12-24] MEDS: FUROSEMIDE 40 MG/4 ML INJ IV SCH ×2 (05:09→17:35)
[2019-12-24 05:26] LABS: Albumin TNR g/dL (3.9-5); BUN/Creatinine Ratio TNR; Blood Urea Nitrogen TNR mg/dL (7-17); Calcium TNR mg/dL (8.4-10.2)
[2019-12-24 05:27] LABS: Hemolysis Index TNR
[2019-12-24 05:29] LABS: Alanine Aminotransferase TNR units/L (7-56)
[2019-12-24 06:40] LABS: Basophils # (Auto) 0.1 K/mm3 (0.0-0.1); Basophils % (Auto) 0.4 % (0.0-1.8); Eosinophils % (Auto) 0.2 % (0.0-4.3); Hemoglobin 11.3 gm/dl (10.1-14.3); Lymphocytes # (Auto) 1.4 K/mm3 (1.2-5.4); Lymphocytes % (Auto) 8.8 % (13.4-35.0); Mean Corpuscular HGB Conc 32 % (30-34); Mean Corpuscular Volume 92 fl (79-97); Monocytes # (Auto) 1.6 K/mm3 (0.0-0.8); Monocytes % (Auto) 10.4 % (0.0-7.3); Platelet Count 243 K/mm3 (140-440); Red Blood Count 3.81 M/mm3 (3.65-5.03); Red Cell Distribution Width 13.7 % (13.2-15.2)
[2019-12-24 06:56] LABS: Alanine Aminotransferase 27 units/L (7-56); Albumin 3.5 g/dL (3.9-5); BUN/Creatinine Ratio 12; Blood Urea Nitrogen 7 mg/dL (7-17); Calcium 8.5 mg/dL (8.4-10.2); Hemolysis Index 27
[2019-12-24] MEDS: BUDESONIDE 0.5 MG/2 ML NEBU IH SCH ×2 (07:31→20:23)
[2019-12-24] MEDS: ARFORMOTEROL 15 MCG/2 ML NEBU IH SCH ×2 (07:31→22:18)
[2019-12-24] MEDS: IPRATROPIUM/ALBUTEROL SULFATE 3 ML AMPUL.NEB IH SCH ×4 (07:31→20:23)
[2019-12-24] MEDS: FAMOTIDINE 20 MG TAB PO SCH (09:16)
[2019-12-24] MEDS: POTASSIUM CHLORIDE ER 20 MEQ TAB PO SCH ×2 (09:16→21:45)
[2019-12-24] MEDS: NICOTINE 14 MG/24 HR PATCH TD SCH ×2 (09:17→09:25)
[2019-12-24] MEDS: ALUM-MAG HYDROXIDE-SIMETHICONE 200-200-20MG/5ML ORAL LIQD 30 ML PO PRN (21:49)
[2019-12-25] MEDS: ALBUTEROL 2.5 MG/3 ML NEBU IH PRN ×2 (02:58→21:00)
[2019-12-25] MEDS: FUROSEMIDE 40 MG/4 ML INJ IV SCH ×2 (06:14→19:21)
[2019-12-25] MEDS: BENZONATATE 100 MG CAP PO SCH ×3 (06:14→21:56)
--- NOTE | 2019-12-25 07:43 | Progress Note ---
Assessment and Plan Day# 2 Symptomatically better - Patient Problems (1) Acute respiratory failure with hypoxia Current Visit: Yes Status: Acute Plan to address problem: patient was on Bipap and tachypneic (2) CHF exacerbation Current Visit: Yes Status: Acute Plan to address problem: IV Lasix ECHO for EF I/o Daily weights ECHO pending (3) COPD exacerbation Current Visit: Yes Status: Acute Plan to address problem: Cont IV abx solumedrol and duonebs (4) HTN (hypertension) Current Visit: Yes Status: Chronic Qualifiers: Hypertension type: essential hypertension Qualified Code(s): I10 - Essential (primary) hypertension Plan to address problem: cont anihypertensives (5) DVT prophylaxis Current Visit: No Status: Acute Plan to address problem: Heparin and GI prophylaxis Subjective Date of service: 12/24/19 Principal diagnosis: Acute resp failure,COPD exacerbation,CHF exacerbation Interval history: Sx better,Still SOB Objective - Constitutional Vitals: Vital Signs - 12hr 12/24/19 12/24/19 12/24/19 20:24 20:27 21:02 Temperature 98.0 F Pulse Rate 75 Pulse Rate [ 99 H Anterior Bilateral Throughout] Respiratory 20 Rate Respiratory 20 Rate [Anterior Bilateral Throughout] Blood Pressure 114/73 O2 Sat by Pulse 100 93 Oximetry 12/25/19 12/25/19 12/25/19 00:17 01:34 02:59 Temperature 98.8 F Pulse Rate 82 76 Pulse Rate [ 102 H Anterior Bilateral Throughout] Respiratory 20 Rate Respiratory 18 Rate [Anterior Bilateral Throughout] Blood Pressure 127/73 O2 Sat by Pulse 100 Oximetry 12/25/19 05:37 Temperature 97.9 F Pulse Rate 82 Pulse Rate [ Anterior Bilateral Throughout] Respiratory 20 Rate Respiratory Rate [Anterior Bilateral Throughout] Blood Pressure 100/45 O2 Sat by Pulse 100 Oximetry General appearance: Present: no acute distress, mild distress, well-nourished - EENT Eyes: PERRL, EOM intact ENT: hearing intact, clear oral mucosa Ears: bilateral: normal - Neck Neck: supple, normal ROM - Respiratory Respiratory effort: normal Respiratory: bilateral: CTA, rales, rhonchi, wheezing - Breasts Breasts: normal - Cardiovascular Heart rate: 78 Rhythm: regular Heart Sounds: Present: S1 & S2. Absent: gallop, rub Extremities: pulses intact, No edema, normal color, Full ROM - Gastrointestinal General gastrointestinal: Present: soft, non-tender, non-distended, normal bowel sounds - Genitourinary Female genitourinary: normal - Integumentary Integumentary: clear, warm, dry - Musculoskeletal Musculoskeletal: 1, strength equal bilaterally - Neurologic Neurologic: moves all extremities - Psychiatric Psychiatric: memory intact, appropriate mood/affect, intact judgment & insight - Allied health notes Allied health notes reviewed: nursing, case management - Labs CBC & Chem 7: 12/24/19 05:58 12/24/19 05:58 HEART Score - HEART Score Troponin: Troponin T < 0.010 ng/mL (0.00-0.029) 12/23/19 04:21
[2019-12-25] MEDS: ARFORMOTEROL 15 MCG/2 ML NEBU IH SCH ×2 (08:08→21:03)
[2019-12-25] MEDS: IPRATROPIUM/ALBUTEROL SULFATE 3 ML AMPUL.NEB IH SCH ×3 (08:08→18:20)
[2019-12-25] MEDS: BUDESONIDE 0.5 MG/2 ML NEBU IH SCH ×2 (08:08→20:59)
[2019-12-25] MEDS: FAMOTIDINE 20 MG TAB PO SCH (09:44)
[2019-12-25] MEDS: NICOTINE 14 MG/24 HR PATCH TD SCH (09:44)
[2019-12-25] MEDS: POTASSIUM CHLORIDE ER 20 MEQ TAB PO SCH ×2 (09:44→21:56)
--- NOTE | 2019-12-25 10:07 | Consultation ---
<VANESA ELIZABETH - Last Filed: 12/25/19 10:54> History of Present Illness Consult date: 12/25/19 Requesting physician: KSENIA ELIZABETH Consult reason: congestive heart failure History of present illness: Pt is a 58 y.o. AA female with a past medical hx of COPD and HTN. Pt also reports being diagnosed with HF last year; however, she did not follow up with her PCP and is not on any diuretics to the best of her knowledge. She is new to our practice. Pt presented via EMS c/o progressively worsening SOB and BLE edema. Pt reports breathing is worse with exertion. She also endorses orthopnea. Upon exam, pt states breathing is much better today. She denies CP, palpitations, cough, and fever/chills. BNP 108. CXR reveals no acute findings. Past History Past Medical History: COPD, hypertension Social history: smoking (former smoker) Medications and Allergies Allergies Allergy/AdvReac Type Severity Reaction Status Date / Time latex AdvReac Unknown Verified 07/01/13 23:57 Home Medications Medication Instructions Recorded Confirmed Last Taken Type ALBUTEROL NEB's [Proventil 0.083% 2.5 mg IH Q4HRT PRN #30 nebu 06/19/19 12/23/19 Unknown Rx NEBS] Acetaminophen [Acetaminophen TAB] 1 tab PO Q4H PRN #15 tablet 06/19/19 12/23/19 Unknown Rx Albuterol INH(or & Nicu Only) 2 puff IH QID PRN #2 inha 06/19/19 12/23/19 Unknown Rx [ProAir HFA Inhaler] Benzonatate [Tessalon Perles] 100 mg PO Q8HR #9 capsule 06/19/19 12/23/19 Unknown Rx Budesonide/Formoterol Fumarate 2 inhalation IH BID #1 hfa.aer.ad 06/19/19 12/23/19 Unknown Rx [Symbicort 160-4.5 Mcg Inhaler] Famotidine [Pepcid] 20 mg PO QDAY #15 tablet 06/19/19 12/23/19 Unknown Rx Furosemide [Lasix TAB] 20 mg PO QDAY #30 tablet 06/19/19 12/23/19 Unknown Rx Ipratropium/Albuterol Sulfate 1 ampul IH BID #7 ampul.neb 06/19/19 12/23/19 Unknown Rx [DUONEB *Not for PRN Use*] Nicotine [Habitrol] 14 mg TD DAILY #14 patch 06/19/19 12/23/19 Unknown Rx cefUROXime [Ceftin] 2 tab PO BID #6 tablet 06/19/19 12/23/19 Unknown Rx methylPREDNISolone [Medrol 4MG 1 dose PO DAILY #1 pack 06/19/19 12/23/19 Unknown Rx DOSEPAK (21 tabs)] Active Meds: Active Medications Acetaminophen (Tylenol) 650 mg PO Q4H PRN PRN Reason: Pain MILD(1-3)/Fever >100.5/FISHER Al Hydrox/Mg Hydrox/Simethicone (Alum-Mag Hydrox-Simeth [phone]/5ml) 30 ml PO Q4H PRN PRN Reason: Indigestion Last Admin: 12/24/19 21:49 Dose: 30 ml Documented by: Albuterol (Proventil) 2.5 mg IH Q4HRT PRN PRN Reason: Shortness Of Breath Last Admin: 12/25/19 02:58 Dose: 2.5 mg Documented by: Albuterol/Ipratropium (Duoneb *Not For Prn Use*) 1 ampul IH TIDRT [facility] Last Admin: 12/25/19 08:08 Dose: 1 ampul Documented by: Arformoterol Tartrate (Brovana Nebu) 15 mcg IH Q12HRT [facility] Last Admin: 12/25/19 08:08 Dose: 15 mcg Documented by: Benzonatate (Tessalon Perles) 100 mg PO Q8HR [facility] Last Admin: 12/25/19 06:14 Dose: 100 mg Documented by: Budesonide (Pulmicort) 0.5 mg IH Q12HRT [facility] Last Admin: 12/25/19 08:08 Dose: 0.5 mg Documented by: Famotidine (Pepcid) 20 mg PO QDAY [facility] Last Admin: 12/25/19 09:44 Dose: 20 mg Documented by: Furosemide (Lasix) 40 mg IV 0600,1800 [facility] Last Admin: 12/25/19 06:14 Dose: 40 mg Documented by: Hydromorphone HCl (Dilaudid) 0.5 mg IV Q3H PRN PRN Reason: Pain , Severe (7-10) Metoclopramide HCl (Reglan) 10 mg IV Q6H PRN PRN Reason: Nausea And Vomiting Nicotine (Habitrol) 14 mg TD DAILY [facility] Last Admin: 12/25/19 09:44 Dose: Not Given Documented by: Ondansetron HCl (Zofran) 4 mg IV Q8H PRN PRN Reason: Nausea And Vomiting Oxycodone/Acetaminophen (Percocet 5/325) 1 tab PO Q6H PRN PRN Reason: Pain, Moderate (4-6) Potassium Chloride (K-Dur) 20 meq PO BID [facility] Last Admin: 12/25/19 09:44 Dose: 20 meq Documented by: Sodium Chloride (Sodium Chloride Flush Syringe 10 Ml) 10 ml IV BID [facility] Last Admin: 12/25/19 09:44 Dose: 10 ml Documented by: Sodium Chloride (Sodium Chloride Flush Syringe 10 Ml) 10 ml IV PRN PRN PRN Reason: LINE FLUSH Last Admin: 12/25/19 06:15 Dose: 10 ml Documented by: Review of Systems Constitutional: no fever, no chills, no sweats Ears, nose, mouth and throat: no tinnitis, no decreased hearing, no nasal congestion, no nasal discharge, no sinus pressure, no dysphagia, no sore throat Cardiovascular: orthopnea, edema, shortness of breath, dyspnea on exertion, no chest pain, no palpitations, no syncope, no lightheadedness, no claudication Respiratory: shortness of breath, dyspnea on exertion, no cough, no congestion Gastrointestinal: no abdominal pain, no nausea, no vomiting, no diarrhea, no constipation Genitourinary Female: no pelvic pain, no flank pain, no dysuria Musculoskeletal: no neck stiffness, no neck pain, no muscle cramps, no frequent falls Integumentary: no rash, no wounds Neurological: no head injury, no weakness, no parathesias, no numbness, no tingling, no seizures, no syncope, no vertigo, no headaches Endocrine: no cold intolerance, no heat intolerance, no excessive thirst, no polydipsia, no polyuria Hematologic/Lymphatic: no easy bruising, no easy bleeding Allergic/Immunologic: no urticaria Physical Examination Last Vital Signs Temp 97.6 F 12/25/19 07:38 Pulse 82 12/25/19 05:37 Resp 18 12/25/19 07:38 BP 99/64 12/25/19 07:38 Pulse Ox 100 12/25/19 05:37 General appearance: no acute distress HEENT: Positive: EOMI, Normocephaly, Mucus Membranes Moist Neck: Positive: neck supple, trachea midline. Negative: JVD/HJR Cardiac: Positive: Reg Rate and Rhythm, S1/S2 Lungs: Positive: Decreased Breath Sounds (bilaterally) Neuro: Positive: Grossly Intact, Motor Function Intact, Coordination Normal, Sensory Function Intact Abdomen: Positive: Soft, Active Bowel Sounds. Negative: Tender Skin: Negative: Rash, Wound Musculoskeletal: No Pain, Normal Range of Motion Extremities: Present: upper extr. pulses, lower extr. pulses, edema (trace BLE edema) Results 12/24/19 05:58 12/24/19 05:58 - Imaging and Cardiology Echo: pending, report reviewed (05/2019: EF 55-60%; normal RV systolic fxn; no sig regurg) EKG: report reviewed, image reviewed - EKG Interpretation EKG: no acute changes EKG shows: tachycardia EKG interpretations - Telemetry EKG Rhythm: Sinus Rhythm - EKG Sinus rhythms and dysrhythmias: sinus tachycardia Assessment and Plan Obtain echo. Cont IV Lasix 40mg BID with strict I/Os. Cont BiPAP as indicated. COPD mgmt per Primary. Plan for Lexiscan MPI stress test in AM. NPO after midnight. Further recs to follow per hospital course. Pt seen in conjunction with Dr. Nguyen, who agrees with the assessment and plan of care. - Patient Problems (1) Acute respiratory failure with hypoxia Current Visit: Yes Status: Acute (2) COPD exacerbation Current Visit: Yes Status: Acute (3) Acute on chronic heart failure with preserved ejection fraction (HFpEF) Current Visit: Yes Status: Acute (4) HTN (hypertension) Current Visit: Yes Status: Chronic Qualifiers: Hypertension type: essential hypertension Qualified Code(s): I10 - Essential (primary) hypertension (5) Morbid obesity Current Visit: Yes Status: Chronic (6) Acute on chronic heart failure with preserved ejection fraction (HFpEF) Current Visit: Yes Status: Acute <XI NGUYEN R - Last Filed: 12/25/19 11:24> Medications and Allergies Active Meds: Active Medications Acetaminophen (Tylenol) 650 mg PO Q4H PRN PRN Reason: Pain MILD(1-3)/Fever >100.5/FISHER Al Hydrox/Mg Hydrox/Simethicone (Alum-Mag Hydrox-Simeth [phone]/5ml) 30 ml PO Q4H PRN PRN Reason: Indigestion Last Admin: 12/24/19 21:49 Dose: 30 ml Documented by: Albuterol (Proventil) 2.5 mg IH Q4HRT PRN PRN Reason: Shortness Of Breath Last Admin: 12/25/19 02:58 Dose: 2.5 mg Documented by: Albuterol/Ipratropium (Duoneb *Not For Prn Use*) 1 ampul IH TIDRT [facility] Last Admin: 12/25/19 08:08 Dose: 1 ampul Documented by: Arformoterol Tartrate (Brovana Nebu) 15 mcg IH Q12HRT [facility] Last Admin: 12/25/19 08:08 Dose: 15 mcg Documented by: Benzonatate (Tessalon Perles) 100 mg PO Q8HR [facility] Last Admin: 12/25/19 06:14 Dose: 100 mg Documented by: Budesonide (Pulmicort) 0.5 mg IH Q12HRT [facility] Last Admin: 12/25/19 08:08 Dose: 0.5 mg Documented by: Famotidine (Pepcid) 20 mg PO QDAY [facility] Last Admin: 12/25/19 09:44 Dose: 20 mg Documented by: Furosemide (Lasix) 40 mg IV 0600,1800 [facility] Hydromorphone HCl (Dilaudid) 0.5 mg IV Q3H PRN PRN Reason: Pain , Severe (7-10) Metoclopramide HCl (Reglan) 10 mg IV Q6H PRN PRN Reason: Nausea And Vomiting Nicotine (Habitrol) 14 mg TD DAILY [facility] Last Admin: 12/25/19 09:44 Dose: Not Given Documented by: Ondansetron HCl (Zofran) 4 mg IV Q8H PRN PRN Reason: Nausea And Vomiting Oxycodone/Acetaminophen (Percocet 5/325) 1 tab PO Q6H PRN PRN Reason: Pain, Moderate (4-6) Potassium Chloride (K-Dur) 20 meq PO BID [facility] Last Admin: 12/25/19 09:44 Dose: 20 meq Documented by: Sodium Chloride (Sodium Chloride Flush Syringe 10 Ml) 10 ml IV BID [facility] Last Admin: 12/25/19 09:44 Dose: 10 ml Documented by: Sodium Chloride (Sodium Chloride Flush Syringe 10 Ml) 10 ml IV PRN PRN PRN Reason: LINE FLUSH Last Admin: 12/25/19 06:15 Dose: 10 ml Documented by: Physical Examination Vital Signs Pulse Resp Pulse Ox 100 H 21 100 12/23/19 04:05 12/23/19 04:05 12/23/19 04:05 Results 12/24/19 05:58 12/24/19 05:58 Assessment and Plan 58-year-old patient who has COPD needs to be on home oxygen not sure if she is taking it having swelling improved with the Lasix but reproducible chest pain on the left side with negative cardiac enzymes repeat echocardiogram looking for cor pulmonale BP control consider stress test in a.m.
--- NOTE | 2019-12-25 10:10 | Progress Note ---
History Interval history: Acute hypoxic respiratory failure. Continue BiPAP as clinically indicated. Etiology secondary to COPD +/- CHF exacerbation. Acute diastolic heart failure. Echocardiogram May 2019 revealed normal EF. Follow-up repeat echocardiogram. Cardiology consulted. Acute COPD exacerbation. Continue IV Solu-Medrol, duo nebs and antibiotics. Hypertension. Continue antihypertensive medications. Hospitalist Physical - Constitutional Vitals: Temp Pulse Resp BP Pulse Ox 97.6 F 82 18 99/64 100 12/25/19 07:38 12/25/19 05:37 12/25/19 07:38 12/25/19 07:38 12/25/19 05:37 General appearance: Present: no acute distress, mild distress, well-nourished - EENT Eyes: Present: PERRL, EOM intact ENT: hearing intact, clear oral mucosa, dentition normal - Neck Neck: Present: supple, normal ROM - Respiratory Respiratory effort: normal Respiratory: bilateral: CTA - Cardiovascular Rhythm: regular Heart Sounds: Present: S1 & S2. Absent: gallop, rub - Extremities Extremities: no ischemia, No edema, Full ROM - Abdominal General gastrointestinal: soft, non-tender, non-distended, normal bowel sounds - Integumentary Integumentary: Present: clear, warm, dry - Neurologic Neurologic: CNII-XII intact, moves all extremities HEART Score - HEART Score Troponin: Troponin T < 0.010 ng/mL (0.00-0.029) 12/23/19 04:21 Results - Labs CBC & Chem 7: 12/24/19 05:58 12/24/19 05:58 Labs: Laboratory Last Values WBC 15.7 K/mm3 (4.5-11.0) H 12/24/19 05:58 RBC 3.81 M/mm3 (3.65-5.03) 12/24/19 05:58 Hgb 11.3 gm/dl (10.1-14.3) 12/24/19 05:58 Hct 35.0 % (30.3-42.9) 12/24/19 05:58 MCV 92 fl (79-97) 12/24/19 05:58 MCH 30 pg (28-32) 12/24/19 05:58 MCHC 32 % (30-34) 12/24/19 05:58 RDW 13.7 % (13.2-15.2) 12/24/19 05:58 Plt Count 243 K/mm3 (140-440) 12/24/19 05:58 Lymph % (Auto) 8.8 % (13.4-35.0) L 12/24/19 05:58 Mcmullen % (Auto) 10.4 % (0.0-7.3) H 12/24/19 05:58 Eos % (Auto) 0.2 % (0.0-4.3) 12/24/19 05:58 Baso % (Auto) 0.4 % (0.0-1.8) 12/24/19 05:58 Lymph # 1.4 K/mm3 (1.2-5.4) 12/24/19 05:58 Mcmullen # 1.6 K/mm3 (0.0-0.8) H 12/24/19 05:58 Eos # 0.0 K/mm3 (0.0-0.4) 12/24/19 05:58 Baso # 0.1 K/mm3 (0.0-0.1) 12/24/19 05:58 Seg Neutrophils % 80.2 % (40.0-70.0) H 12/24/19 05:58 Seg Neutrophils # 12.6 K/mm3 (1.8-7.7) H 12/24/19 05:58 ABG pH 7.357 pH Units (7.350-7.450) 12/23/19 08:50 ABG pCO2 62.9 mm Hg 12/23/19 08:50 ABG pO2 66.4 mm Hg (80.0-90.0) L 12/23/19 08:50 ABG HCO3 34.5 mmol/L (20.0-26.0) H 12/23/19 08:50 ABG O2 Saturation 93.9 % (95.0-99.0) L 12/23/19 08:50 ABG O2 Content 16.5 (0.0-44) 12/23/19 08:50 ABG Base Excess 7.0 mmol/L (-2.0-3.0) H 12/23/19 08:50 ABG Hemoglobin 12.8 gm/dl (12.0-16.0) 12/23/19 08:50 ABG Carboxyhemoglobin 1.3 % (0.0-5.0) 12/23/19 08:50 ABG Methemoglobin 0.6 % (0.0-1.5) 12/23/19 08:50 Oxyhemoglobin 92.0 % (95.0-99.0) L 12/23/19 08:50 FiO2 40 % 12/23/19 08:50 Sodium 140 mmol/L (137-145) 12/24/19 05:58 Potassium 3.9 mmol/L (3.6-5.0) D 12/24/19 05:58 Chloride 96.9 mmol/L (98-107) L 12/24/19 05:58 Carbon Dioxide 33 mmol/L (22-30) H 12/24/19 05:58 Anion Gap 14 mmol/L 12/24/19 05:58 BUN 7 mg/dL (7-17) 12/24/19 05:58 Creatinine 0.6 mg/dL (0.7-1.2) L 12/24/19 05:58 Estimated GFR > 60 ml/min 12/24/19 05:58 BUN/Creatinine Ratio 12 % 12/24/19 05:58 Glucose 208 mg/dL (65-100) H 12/24/19 05:58 Hemoglobin A1c 7.0 % (4-6) H 12/23/19 20:04 Calcium 8.5 mg/dL (8.4-10.2) 12/24/19 05:58 Total Bilirubin 0.30 mg/dL (0.1-1.2) 12/24/19 05:58 AST 28 units/L (5-40) 12/24/19 05:58 ALT 27 units/L (7-56) 12/24/19 05:58 Alkaline Phosphatase 45 units/L (35-129) 12/24/19 05:58 Total Creatine Kinase 604 units/L (30-135) H 12/23/19 04:21 CK-MB (CK-2) 5.1 ng/mL (0.0-4.0) H 12/23/19 04:21 CK-MB (CK-2) Rel Index 0.8 (0-4) 12/23/19 04:21 Troponin T < 0.010 ng/mL (0.00-0.029) 12/23/19 04:21 NT-Pro-B Natriuret Pep 107.8 pg/mL (0-900) 12/23/19 04:21 Total Protein 7.5 g/dL (6.3-8.2) 12/24/19 05:58 Albumin 3.5 g/dL (3.9-5) L 12/24/19 05:58 Albumin/Globulin Ratio 0.9 % 12/24/19 05:58 Urine Color Colorless (Yellow) 12/23/19 04:04 Urine Turbidity Clear (Clear) 12/23/19 04:04 Urine pH 7.0 (5.0-7.0) 12/23/19 04:04 Ur Specific [place] 1.004 (1.003-1.030) 12/23/19 04:04 Urine Protein <15 mg/dl mg/dL (Negative) 12/23/19 04:04 Urine Glucose (UA) Neg mg/dL (Negative) 12/23/19 04:04 Urine Ketones Neg mg/dL (Negative) 12/23/19 04:04 Urine Blood Neg (Negative) 12/23/19 04:04 Urine Nitrite Neg (Negative) 12/23/19 04:04 Urine Bilirubin Neg (Negative) 12/23/19 04:04 Urine Urobilinogen < 2.0 mg/dL (<2.0) 12/23/19 04:04 Ur Leukocyte Esterase Neg (Negative) 12/23/19 04:04 Urine WBC (Auto) < 1.0 /HPF (0.0-6.0) 12/23/19 04:04 Urine RBC (Auto) < 1.0 /HPF (0.0-6.0) 12/23/19 04:04 U Epithel Cells (Auto) 2.0 /HPF (0-13.0) 12/23/19 04:04 Urine Mucus Few /HPF 12/23/19 04:04 Moss/IV: Voiding Method Bedside Commode IV Catheter Type [Right INT / Saline Lock Antecubital] Active Medications - Current Medications Current Medications: Generic Name Dose Route Start Last Admin Trade Name Freq PRN Reason Stop Dose Admin Acetaminophen 650 mg 12/23/19 18:18 Tylenol PO Q4H PRN Pain MILD(1-3)/Fever >100.5/FISHER Al Hydrox/Mg Hydrox/Simethicone 30 ml 12/24/19 21:42 12/24/19 21:49 Alum-Mag Hydrox-Simeth 843-231-46zs/5ml PO 30 ml Q4H PRN Administration Indigestion Albuterol 2.5 mg 12/23/19 18:18 12/25/19 02:58 Proventil IH 2.5 mg Q4HRT PRN Administration Shortness Of Breath Albuterol/Ipratropium 1 ampul 12/23/19 20:00 12/25/19 08:08 Duoneb *Not For Prn Use* IH 1 ampul TIDRT DANIELLE Administration Arformoterol Tartrate 15 mcg 12/23/19 20:00 12/25/19 08:08 Brovana Nebu IH 15 mcg Q12HRT DANIELLE Administration Benzonatate 100 mg 12/23/19 22:00 12/25/19 06:14 Tessalon Perles PO 100 mg Q8HR DANIELLE Administration Budesonide 0.5 mg 12/23/19 20:00 12/25/19 08:08 Pulmicort IH 0.5 mg Q12HRT DANIELLE Administration Famotidine 20 mg 12/23/19 19:00 12/25/19 09:44 Pepcid PO 20 mg QDAY DANIELLE Administration Furosemide 40 mg 12/24/19 06:00 12/25/19 06:14 Lasix IV 40 mg 0600,1800 DANIELLE Administration Hydromorphone HCl 0.5 mg 12/23/19 18:20 Dilaudid IV Q3H PRN Pain , Severe (7-10) Metoclopramide HCl 10 mg 12/23/19 18:20 Reglan IV Q6H PRN Nausea And Vomiting Nicotine 14 mg 12/23/19 19:00 12/25/19 09:44 Habitrol TD Not Given DAILY DANIELLE Ondansetron HCl 4 mg 12/23/19 18:20 Zofran IV Q8H PRN Nausea And Vomiting Oxycodone/Acetaminophen 1 tab 12/23/19 18:20 Percocet 5/325 PO Q6H PRN Pain, Moderate (4-6) Potassium Chloride 20 meq 12/23/19 22:00 12/25/19 09:44 K-Dur PO 20 meq BID DANIELLE Administration Sodium Chloride 10 ml 12/23/19 22:00 12/25/19 09:44 Sodium Chloride Flush Syringe 10 Ml IV 10 ml BID DANIELLE Administration Sodium Chloride 10 ml 12/23/19 18:20 12/25/19 06:15 Sodium Chloride Flush Syringe 10 Ml IV 10 ml PRN PRN Administration LINE FLUSH
[2019-12-25] MEDS: ALUM-MAG HYDROXIDE-SIMETHICONE 200-200-20MG/5ML ORAL LIQD 30 ML PO PRN (20:22)
[2019-12-26] MEDS: ALBUTEROL 2.5 MG/3 ML NEBU IH PRN (03:47)
[2019-12-26] MEDS: BENZONATATE 100 MG CAP PO SCH ×2 (05:46→15:45)
[2019-12-26] MEDS: FUROSEMIDE 40 MG/4 ML INJ IV SCH (05:46)
[2019-12-26] MEDS: BUDESONIDE 0.5 MG/2 ML NEBU IH SCH (07:25)
[2019-12-26] MEDS: ARFORMOTEROL 15 MCG/2 ML NEBU IH SCH (07:25)
[2019-12-26] MEDS: IPRATROPIUM/ALBUTEROL SULFATE 3 ML AMPUL.NEB IH SCH ×2 (07:26→13:32)
[2019-12-26] MEDS: ALUM-MAG HYDROXIDE-SIMETHICONE 200-200-20MG/5ML ORAL LIQD 30 ML PO PRN (08:28)
[2019-12-26] MEDS: FAMOTIDINE 20 MG TAB PO SCH (09:49)
[2019-12-26] MEDS: POTASSIUM CHLORIDE ER 20 MEQ TAB PO SCH (09:49)
[2019-12-26] MEDS: NICOTINE 14 MG/24 HR PATCH TD SCH (09:49)
[2019-12-26] MEDS ORDERED: FUROSEMIDE 40 MG/4 ML INJ IV SCH (10:00)
--- NOTE | 2019-12-26 11:15 | Discharge Summary ---
Providers - Providers Date of Admission: 12/23/19 08:29 Date of discharge: 12/26/19 Attending physician: KSENIA ELIZABETH 12/25/19 07:43 Consult to Cardiology [CONS] Routine Consulting Provider: XI ISRAEL Reason For Exam: chf exac Primary care physician: W[employer]ING [employer] Hospitalization Reason for admission: SOB Condition: Stable Hospital course: Pt is a 58 y.o. AA female with a past medical hx of COPD and HTN. Pt also reports being diagnosed with HF last year; however, she did not follow up with her PCP and is not on any diuretics to the best of her knowledge. Pt presented via EMS c/o progressively worsening SOB and BLE edema. Pt reported breathing is worse with exertion. She also endorsed orthopnea. BNP 108. CXR reveals no acute findings. Patient has slow but significant improvement throughout hospitalization. The patient was admitted with diagnosis of acute hypoxemic respiratory failure secondary to acute COPD exacerbation and acute diastolic heart failure. The patient was noted to have negative cardiac enzymes and repeat echocardiogram was completed and to be read by cardiology. Cardiology felt that stress test could be done as an outpatient. Chest pain was noted to be reproducible with palpation. Therefore, diagnosis of chest pain costochondritis. The patient did have a fit test that qualified her for home O2. Case management arranged for home oxygen. Dedicated discharge time 35 minutes Disposition: DC-01 TO HOME OR SELFCARE Time spent for discharge: 35 - Discharge Diagnoses (1) Acute on chronic heart failure with preserved ejection fraction (HFpEF) Status: Acute (2) Acute respiratory failure with hypoxia Status: Acute (3) COPD exacerbation Status: Acute (4) HTN (hypertension) Status: Chronic Qualifiers: Hypertension type: essential hypertension Qualified Code(s): I10 - Essential (primary) hypertension (5) Morbid obesity Status: Chronic (6) Obesity Status: Chronic (7) Costochondritis Status: Acute Core Measure Documentation - Palliative Care Palliative Care/ Comfort Measures: Not Applicable - Core Measures Any of the following diagnoses?: none Exam - Constitutional Vitals: Temp Pulse Resp BP Pulse Ox 98.5 F 80 20 147/82 100 12/26/19 07:18 12/26/19 07:26 12/26/19 11:00 12/26/19 07:18 12/26/19 07:24 General appearance: Present: no acute distress, well-nourished - EENT Eyes: Present: PERRL ENT: hearing intact, clear oral mucosa - Neck Neck: Present: supple, normal ROM - Respiratory Respiratory effort: normal Respiratory: bilateral: CTA - Cardiovascular Heart Sounds: Present: S1 & S2. Absent: rub, click - Extremities Extremities: pulses symmetrical, No edema Peripheral Pulses: within normal limits - Abdominal General gastrointestinal: Present: soft, non-tender, non-distended, normal bowel sounds Female genitourinary: Present: normal - Integumentary Integumentary: Present: clear, warm, dry - Musculoskeletal Musculoskeletal: gait normal, strength equal bilaterally - Psychiatric Psychiatric: appropriate mood/affect, intact judgment & insight - Neurologic Neurologic: CNII-XII intact, moves all extremities Plan Activity: advance as tolerated Weight Bearing Status: Weight Bear as Tolerated Durable Medical Equipment Needed Upon Discharge: Oxygen Follow up with: PRIMARY CARE, [Primary Care Provider] - 3-5 Days XI ISRAEL MD [Staff Physician] - 7 Days CHITO JEROME MD [Staff Physician] - 7 Days Prescriptions: Ipratropium/Albuterol Sulfate [DUONEB *Not for PRN Use*] 1 ampul IH BID #7 ampul.neb Furosemide [Lasix TAB] 20 mg PO QDAY #30 tablet methylPREDNISolone [Medrol 4MG DOSEPAK (21 tabs)] 1 dose PO DAILY #1 pack Budesonide/Formoterol Fumarate [Symbicort 160-4.5 Mcg Inhaler] 2 inhalation IH BID #1 hfa.aer.ad
--- NOTE | 2019-12-26 11:31 | Progress Note ---
Assessment and Plan Echo findings noted - 12/25/2019: EF 55-60%, LV diastolic filling consistent w/pseudonormalization, no significant regurgitation. Chest pain reproducible via palpation. Will hold off on stress test at this time. Currently stable cardiac status. Pt may be discharged from a Cardiology standpoint. Discharge on PO Lasix 20mg qDay, doubling to 40mg every other day. Discussed with pt. Will require home O2. Recommend f/u with Dr. Nguyen within 1-2 weeks of discharge ([phone]). Pt seen in conjunction with Dr. Nguyen, who agrees with the assessment and plan of care. - Patient Problems (1) Acute respiratory failure with hypoxia Current Visit: Yes Status: Resolved (2) COPD exacerbation Current Visit: Yes Status: Acute (3) Acute on chronic heart failure with preserved ejection fraction (HFpEF) Current Visit: Yes Status: Resolved (4) HTN (hypertension) Current Visit: Yes Status: Chronic Qualifiers: Hypertension type: essential hypertension Qualified Code(s): I10 - Essential (primary) hypertension (5) Morbid obesity Current Visit: Yes Status: Chronic Subjective Date of service: 12/26/19 Principal diagnosis: Acute Resp Failure, COPD exacerbation, CHF exacerbation Interval history: Pt lying in bed comfortably upon exam. She states her breathing is much better; however, she is still experiencing MARTINEZ. No additional cardiac complaints. Tele reviewed - NSR 80s with no acute events noted. Objective Last Vital Signs Temp 98.5 F 12/26/19 07:18 Pulse 80 12/26/19 07:26 Resp 20 12/26/19 11:00 BP 147/82 12/26/19 07:18 Pulse Ox 98 12/26/19 10:00 - Physical Examination General: No Apparent Distress HEENT: Positive: EOMI, Normocephaly, Mucus Membranes Moist Neck: Positive: neck supple, trachea midline. Negative: JVD/HJR Cardiac: Positive: Reg Rate and Rhythm, S1/S2 Lungs: Positive: clear to auscultation (bilaterally) Neuro: Positive: Grossly Intact, Motor Function Intact, Coordination Normal, Sensory Function Intact Abdomen: Positive: Soft, Active Bowel Sounds. Negative: Tender Skin: Negative: Rash, Wound Musculoskeletal: No Pain, Normal Range of Motion Extremities: Present: upper extr. pulses, lower extr. pulses, edema (trace BLE edema) - Imaging and Cardiology EKG: report reviewed, image reviewed Echo: report reviewed (12/25/2019: EF 55-60%, LV diastolic filling consistent w/pseudonormalization, no sig regurg; 05/2019: EF 55-60%, normal RV systolic fxn, no sig regurg) - Telemetry EKG Rhythm: Sinus Rhythm - EKG Sinus rhythms and dysrhythmias: sinus tachycardia
[2019-12-26 16:13] VITALS: BP 105/55
== END 2019-12-26 17:45 | disposition home or self-care (01) | DRG 291 ==
LOC: ED 03:45 → 4A 08:29
PROVIDERS: ADMIT Internal Medicine; ATTEND Hospitalist
PROC: 5A09357 Assistance with Respiratory Ventilation, Less than 24 Consecutive Hours, Continuous Positive Airway Pressure (ICD-10-PCS; principal; 2019-12-23)
PROC: 4A033R1 Measurement of Arterial Saturation, Peripheral, Percutaneous Approach (ICD-10-PCS; 2019-12-23)
DX: I11.0 Hypertensive heart disease with heart failure (principal); J96.01 Acute respiratory failure with hypoxia; J44.1 Chronic obstructive pulmonary disease with (acute) exacerbation; Z68.41 Body mass index [BMI] 40.0-44.9, adult; M94.0 Chondrocostal junction syndrome [Tietze]; I50.33 Acute on chronic diastolic (congestive) heart failure; E66.01 Morbid (severe) obesity due to excess calories; Z91.040 Latex allergy status; Z79.899 Other long term (current) drug therapy; Z82.49 Family history of ischemic heart disease and other diseases of the circulatory system
CPT/HCPCS: 36415; 36600; 71045; 80048; 80053; 81001; 82550; 82553; 82803; 83036; 83880; 84484; 85025; 93005; 93306; 94640; 94644; 94760; G0378; J1940; J2930; J3475